=== PATIENT | female | born 1940 | race Caucasian/White ===

== ENCOUNTER 2018-10-14 09:56 | Emergency (ER) | payer MEDICARE, OTHER ==
[~2018-10-14] VITALS: Ht 154.9 cm; Wt 70.0 kg
[~2018-10-14 09:56] MED LIST: AMLO10TA4 PO; ASPI-612 PO; ATOR20TA PO; CALC-1197 PO; CLOP75TA35 PO; HYDR-4353 PO; LORA1TAB PO; LOSA100T57 PO; PANT40TA39 PO; SERT50TA10 PO
[2018-10-14] MEDS ORDERED: ondansetron/PF 4mg/2ml inj IV ONE ×2 (10:05→11:20)
[2018-10-14] MEDS ORDERED: morphine 4 MG/ML inj SYRINge IV PRN (10:05)
[2018-10-14] MEDS ORDERED: normal saline 1000ML IV soln IVB ONE (10:05)
[2018-10-14] MEDS ORDERED: LORazepam 2 mg/ml vial IV ONE (10:05)
[2018-10-14 10:31] LABS: BASOPHILS # (AUTO) 0.1 X10'3 (0-0.2); BASOPHILS % (AUTO) 0.6 % (0-1); EOSINOPHILS % (AUTO) 0.1 % (0-6); HEMATOCRIT 37.7 % (35.0-45.0); HEMOGLOBIN 12.7 g/dl (12.0-16.0); LYMPHOCYTES # (AUTO) 0.7 X10'3 (1.1-4.8); LYMPHOCYTES % (AUTO) 5.1 % (21-51); MEAN CORPUSCULAR HEMOGLOBIN 31.1 PG (27.0-31.0); MEAN CORPUSCULAR HGB CONC 33.8 g/dL (33.0-36.5); MEAN PLATELET VOLUME 8.4 FL (7.4-10.4); MONOCYTES # (AUTO) 0.6 X10'3 (0-0.9); MONOCYTES % (AUTO) 4.2 % (2-12); NEUTROPHILS # (AUTO) 12.3 X10'3 (1.8-7.7); PLATELET COUNT 229 X10'3 (140-440); RED BLOOD COUNT 4.09 X10'6 (4.20-5.60); RED CELL DISTRIBUTION WIDTH 14.3 % (11.5-14.5); WHITE BLOOD COUNT 13.6 X10'3 (4.5-11.0)
[2018-10-14] MEDS ORDERED: calcium citrate PO (10:37)
[2018-10-14] MEDS ORDERED: CHOL10002 PO (10:37)
[2018-10-14] MEDS ORDERED: APIX5TAB3 PO (10:37)
[2018-10-14] MEDS ORDERED: TRAZ-251 PO (10:37)
[2018-10-14] MEDS ORDERED: CLON-529 PO (10:37)
[2018-10-14] MEDS ORDERED: GABA-532 PO (10:37)
[2018-10-14 10:46] LABS: ALANINE AMINOTRANSFERASE 18 U/L (12-78); ALBUMIN 3.8 G/DL (3.4-5.0); ALKALINE PHOSPHATASE 111 IU/L (46-116); ANION GAP 12 (8-16); ASPARTATE AMINO TRANSFERASE 17 U/L (10-37); BILIRUBIN,TOTAL 0.9 MG/DL (0.1-1.0); BLOOD UREA NITROGEN 20 MG/DL (7-18); BUN/CREATININE RATIO 13.4 (6.6-38.0); CALCIUM 9.5 MG/DL (8.5-10.1); CHLORIDE 105 MMOL/L (99-107); CREATININE 1.49 MG/DL (0.40-0.90); GLUCOSE 178 MG/DL (70-104); POTASSIUM 3.7 MMOL/L (3.5-5.1); SODIUM 142 MMOL/L (135-145); TOTAL CARBON DIOXIDE 24.9 MMOL/L (24-32); TOTAL PROTEIN 7.6 G/DL (6.4-8.2); eGFR 34 ML/MIN
[2018-10-14 10:48] LABS: LIPASE 161 U/L (73-393); TROPONIN I < 0.04 NG/ML (0.0-0.05)
--- NOTE | 2018-10-14 11:17 | NUR ---
TO CT SCAN VIA WHEELCHAIR
[2018-10-14] MEDS ORDERED: normal saline 1000ML IV soln IV ONE (11:45)
[2018-10-14 12:05] LABS: HEMATOCRIT 38.3 % (35.0-45.0); HEMOGLOBIN 12.7 g/dl (12.0-16.0); MEAN CORPUSCULAR HEMOGLOBIN 30.8 PG (27.0-31.0); MEAN CORPUSCULAR HGB CONC 33.1 g/dL (33.0-36.5); MEAN CORPUSCULAR VOLUME 93.1 FL (78-98); MEAN PLATELET VOLUME 8.6 FL (7.4-10.4); PLATELET COUNT 221 X10'3 (140-440); RED BLOOD COUNT 4.11 X10'6 (4.20-5.60); RED CELL DISTRIBUTION WIDTH 14.2 % (11.5-14.5); WHITE BLOOD COUNT 13.3 X10'3 (4.5-11.0)
[2018-10-14 12:20] VITALS: BP 138/46
[2018-10-14 12:21] LABS: CLARITY,URINE CLEAR (Clear); COLOR,URINE YELLOW (Yellow); GLUCOSE, URINE NEGATIVE (Neg); KETONES,URINE NEGATIVE (Neg); LEUKOCYTE ESTERASE ,URINE NEGATIVE (Neg); NITRITES, URINE NEGATIVE (Neg); OCCULT BLOOD,URINE TRACE-LYSED (Neg); PH,URINE 7.5 (4.8-8.0); PROTEIN,URINE TRACE mg/dl (Neg); UROBILINOGEN,URINE 0.2 E.U/dL (0.2-1.0)
[2018-10-14 12:22] LABS: UA COLLECTION TYPE FOLEY CATH
[2018-10-14 12:33] LABS: MUCUS STRANDS FEW /LPF (Neg); SQUAMOUS EPITHELIAL CELL,UR FEW /LPF (FEW)
[2018-10-14 12:36] LABS: TRANSITIONAL EPI CELLS,URINE FEW /HPF
[2018-10-14 12:37] LABS: BACTERIA,URINE FEW /HPF (Neg); HYALINE CASTS 0-3 /LPF (NEGATIVE); WBC,URINE 0-4 /HPF (0-4)
== END 2018-10-14 12:24 | disposition short-term general hospital (02) ==
LOC: ER 09:56
DX: I71.3 Abdominal aortic aneurysm, ruptured (principal); R11.2 Nausea with vomiting, unspecified; I10 Essential (primary) hypertension; G89.29 Other chronic pain; Z86.73 Personal history of transient ischemic attack (TIA), and cerebral infarction without residual deficits; Z95.0 Presence of cardiac pacemaker; Z79.899 Other long term (current) drug therapy; Z79.82 Long term (current) use of aspirin
CPT/HCPCS: 36415; 74176; 80053; 81001; 83605; 83690; 84145; 84484; 85025; 85027; 87040; 93005; 96361; 96374; 96375; 99291; J2060; J2270; J2405; J7030

== ENCOUNTER 2018-12-28 08:44 | Emergency (ER) | payer MEDICARE, OTHER ==
[~2018-12-28] VITALS: Ht 154.9 cm; Wt 62.0 kg
[~2018-12-28 08:44] MED LIST changes: +APIX5TAB3 PO; -CALC-1197 PO; +CHOL10002 PO; +CLON-529 PO; -CLOP75TA35 PO; +GABA-532 PO; -LORA1TAB PO; +TRAZ-251 PO; +calcium citrate PO
[2018-12-28 10:11] VITALS: BP 147/70
[2018-12-28] MEDS ORDERED: ONDA4TAB6 PO (15:22)
== END 2018-12-28 10:08 | disposition home or self-care (01) ==
LOC: ER 08:45
DX: T81.89XA Other complications of procedures, not elsewhere classified, initial encounter (principal); K91.841 Postprocedural hemorrhage of a digestive system organ or structure following other procedure; I10 Essential (primary) hypertension; F41.9 Anxiety disorder, unspecified; F32.9 Major depressive disorder, single episode, unspecified; Z95.0 Presence of cardiac pacemaker; Z98.890 Other specified postprocedural states; Z86.73 Personal history of transient ischemic attack (TIA), and cerebral infarction without residual deficits; Z88.1 Allergy status to other antibiotic agents; Z79.82 Long term (current) use of aspirin; Z79.899 Other long term (current) drug therapy; Y83.8 Other surgical procedures as the cause of abnormal reaction of the patient, or of later complication, without mention of misadventure at the time of the procedure; Y92.89 Other specified places as the place of occurrence of the external cause
CPT/HCPCS: 99283

== ENCOUNTER 2019-01-13 12:37 | Inpatient (IN) | payer MEDICARE, OTHER ==
[~2019-01-13] VITALS: Ht 154.9 cm; Wt 65.9 kg
[~2019-01-13 12:37] MED LIST changes: +ONDA4TAB6 PO
[2019-01-13] MEDS ORDERED: furosemide 10 MG/1 ML 10ml inj IV ONE (13:20)
[2019-01-13 13:41] LABS: BASOPHILS % (AUTO) 0.5 % (0-1); EOSINOPHILS # (AUTO) 0.1 X10'3 (0-0.9); EOSINOPHILS % (AUTO) 1.4 % (0-6); HEMATOCRIT 28.9 % (35.0-45.0); HEMOGLOBIN 9.2 g/dl (12.0-16.0); LYMPHOCYTES # (AUTO) 0.9 X10'3 (1.1-4.8); LYMPHOCYTES % (AUTO) 13.3 % (21-51); MEAN CORPUSCULAR HEMOGLOBIN 27.4 PG (27.0-31.0); MEAN CORPUSCULAR HGB CONC 31.9 g/dL (33.0-36.5); MEAN CORPUSCULAR VOLUME 85.9 FL (78-98); MEAN PLATELET VOLUME 7.5 FL (7.4-10.4); MONOCYTES # (AUTO) 0.7 X10'3 (0-0.9); MONOCYTES % (AUTO) 10.2 % (2-12); NEUTROPHILS # (AUTO) 4.8 X10'3 (1.8-7.7); NEUTROPHILS % (AUTO) 74.6 % (42-75); PLATELET COUNT 220 X10'3 (140-440); RED BLOOD COUNT 3.37 X10'6 (4.20-5.60); RED CELL DISTRIBUTION WIDTH 16.1 % (11.5-14.5); WHITE BLOOD COUNT 6.4 X10'3 (4.5-11.0)
[2019-01-13 13:58] LABS: ALANINE AMINOTRANSFERASE 62 U/L (12-78); ALBUMIN/GLOBULIN RATIO 0.7 (1.1-1.5); ALKALINE PHOSPHATASE 166 IU/L (46-116); ANION GAP 9 (8-16); ASPARTATE AMINO TRANSFERASE 62 U/L (10-37); BILIRUBIN,TOTAL 0.7 MG/DL (0.1-1.0); BLOOD UREA NITROGEN 29 MG/DL (7-18); BUN/CREATININE RATIO 13.7 (6.6-38.0); CALCIUM 8.9 MG/DL (8.5-10.1); CHLORIDE 106 MMOL/L (99-107); CREATININE 2.12 MG/DL (0.40-0.90); GLUCOSE 104 MG/DL (70-104); POTASSIUM 5.2 MMOL/L (3.5-5.1); SODIUM 141 MMOL/L (135-145); TOTAL PROTEIN 7.3 G/DL (6.4-8.2); eGFR 23 ML/MIN
[2019-01-13] MEDS ORDERED: mag hydrox/Alum hydrox/simeth 30ml oral suspension PO PRN (15:10)
[2019-01-13] MEDS ORDERED: ondansetron/PF 4mg/2ml inj IV PRN (15:10)
[2019-01-13] MEDS ORDERED: acetaminophen 325mg tablet PO PRN ×2 (15:10)
[2019-01-13] MEDS ORDERED: magnesium hydroxide 30ml (MOM) UD suspension PO PRN (15:10)
[2019-01-13] MEDS ORDERED: morphine 2 MG/ML inj. syringe IV PRN (15:10)
--- NOTE | 2019-01-13 16:44 | NUR ---
LENS FINISHER AT BEDSIDE.
--- NOTE | 2019-01-13 17:06 | NUR ---
PER PHARMACIST SAKINA, DAUGHTER IS TO BRING IN MEDICATION LIST FOR PATIENT.
[2019-01-13] MEDS ORDERED: AMLO10TA PO (17:22)
[2019-01-13] MEDS ORDERED: CALC200T42 PO (17:22)
[2019-01-13] MEDS ORDERED: SERT100T10 PO (17:22)
[2019-01-13] MEDS ORDERED: LORA-269 PO (17:22)
[2019-01-13] MEDS ORDERED: METO25TA6 PO (17:40)
[2019-01-13] MEDS ORDERED: FURO-150 PO (17:40)
--- NOTE | 2019-01-13 17:44 | NUR ---
promotional table spacer PAGER ID: [phone] MESSAGE: Kyle [phone]. I need wound vac orders to keep the wound vac on at the current settings, also Patient would like Ativan. Padmaja [phone]
--- NOTE | 2019-01-13 17:44 | NUR ---
Patient arrived at 1726 from Ed. Khushbu REGALADO called report. Patient oriented to room, will continue to monitor.
[2019-01-13 18:00] VITALS: BP 137/64
[2019-01-13] MEDS: HYDROcodone/acetaminophen 5mg/325mg tablet PO PRN (18:02)
[2019-01-13] MEDS ORDERED: LORazepam 0.5 MG tablet PO PRN (18:05)
--- NOTE | 2019-01-13 18:15 | NUR ---
Patient in room PCU 3028. I have received report from Padmaja REGALADO and had the opportunity to ask questions and assume patient care. Patient is sleeping, will continue to monitor closely.
--- NOTE | 2019-01-13 18:29 | NUR ---
Problems reprioritized. Patient report given, questions answered & plan of care reviewed with Temi REGALADO. Patient stable at transfer of care.
[2019-01-13] MEDS: furosemide 20 MG/2 ML vial IV SCH (21:20)
[2019-01-13] MEDS ORDERED: pneumococcal 23-VAL P-sac vacc 25 mcg/0.5ml vial IMVAC ONE (21:50)
[2019-01-13 22:00] VITALS: BP 131/57
[2019-01-14 01:51] LABS: BASOPHILS % (AUTO) 0.7 % (0-1); EOSINOPHILS # (AUTO) 0.2 X10'3 (0-0.9); EOSINOPHILS % (AUTO) 3.7 % (0-6); HEMOGLOBIN 9.9 g/dl (12.0-16.0); LYMPHOCYTES # (AUTO) 1.1 X10'3 (1.1-4.8); LYMPHOCYTES % (AUTO) 19.4 % (21-51); MEAN CORPUSCULAR HEMOGLOBIN 27.9 PG (27.0-31.0); MEAN CORPUSCULAR HGB CONC 32.9 g/dL (33.0-36.5); MEAN CORPUSCULAR VOLUME 84.9 FL (78-98); MONOCYTES # (AUTO) 0.6 X10'3 (0-0.9); MONOCYTES % (AUTO) 10.1 % (2-12); NEUTROPHILS # (AUTO) 3.8 X10'3 (1.8-7.7); NEUTROPHILS % (AUTO) 66.1 % (42-75); PLATELET COUNT 227 X10'3 (140-440); RED BLOOD COUNT 3.53 X10'6 (4.20-5.60); RED CELL DISTRIBUTION WIDTH 16.5 % (11.5-14.5); WHITE BLOOD COUNT 5.8 X10'3 (4.5-11.0)
[2019-01-14 02:00] VITALS: BP 144/63
[2019-01-14 02:02] LABS: ALBUMIN 3.2 G/DL (3.4-5.0); ANION GAP 8 (8-16); BLOOD UREA NITROGEN 32 MG/DL (7-18); CALCIUM 9.2 MG/DL (8.5-10.1); CHLORIDE 103 MMOL/L (99-107); GLUCOSE 100 MG/DL (70-104); POTASSIUM 4.2 MMOL/L (3.5-5.1); SODIUM 140 MMOL/L (135-145); TOTAL CARBON DIOXIDE 29.2 MMOL/L (24-32); eGFR 16 ML/MIN
[2019-01-14] MEDS: HYDROcodone/acetaminophen 10/325mg tab PO PRN (03:19)
--- NOTE | 2019-01-14 03:30 | NUR ---
Patient's O2 is dropping into the mid 80's and she is SOB. Tried the non-rebreather and it helped, as soon as we placed her back on the NC her O2 would drop again. Lungs sounds are wet. Called Dr. Aragon and relayed information. New orders for 1x dose of IV lasix 40mg.
[2019-01-14] MEDS ORDERED: furosemide 40mg/4ml inj IV ONE (03:40)
--- NOTE | 2019-01-14 06:20 | NUR ---
Problems reprioritized. Patient report given, questions answered & plan of care reviewed with Lorelei REGALADO.
--- NOTE | 2019-01-14 06:38 | NUR ---
Patient in room PCU 3028. I have received report from Augusta and had the opportunity to ask questions and assume patient care.
[2019-01-14 07:00] VITALS: BP 151/58
[2019-01-14] MEDS: furosemide 20 MG/2 ML vial IV SCH ×2 (07:58→20:18)
[2019-01-14] MEDS: morphine 2 MG/ML inj. syringe IV PRN ×2 (08:00→20:23)
--- NOTE | 2019-01-14 08:00 | NUR ---
Patient became dyspneic/anxious, daughter at bedside. RR 22, Sp02 89% on 7/L via NC. IV lasix and IV morphine administered with effective results. Patient is sating between 90-94% on 7/L via NC. MD is aware and was at bedside when this occurred. MD stated to try and keep saturations between 90-92% and order PT for eval and tx. Will continue to monitor closely.
[2019-01-14] MEDS ORDERED: LORazepam 1 MG tablet PO PRN (08:50)
[2019-01-14] MEDS ORDERED: HYDROcodone/acetaminophen 10/325mg tab PO PRN (08:50)
[2019-01-14] MEDS: apixaban 5mg tablet PO SCH ×2 (09:31→20:19)
[2019-01-14] MEDS: sertraline 50mg tablet PO SCH (09:32)
[2019-01-14] MEDS: amLODIPine 5mg tablet PO SCH (09:32)
[2019-01-14] MEDS: metoprolol tartrate 25mg tablet PO SCH ×2 (09:32→20:21)
[2019-01-14 11:00] VITALS: BP 110/63
[2019-01-14] MEDS: HYDROcodone/acetaminophen 5mg/325mg tablet PO PRN (11:34)
[2019-01-14] MEDS: pantoprazole 40mg Tablet.DR PO SCH (11:36)
--- NOTE | 2019-01-14 11:43 | NUR ---
Patient is doing well and in no apparent distress. Interventions this morning effective. Patient remains on 7/L via NC and sating between 93-94%, in no respiratory distress. Call light in reach, will continue to keep monitoring closely.
[2019-01-14 15:00] VITALS: BP 132/58
--- NOTE | 2019-01-14 18:15 | NUR ---
Patient in room PCU 3028. I have received report from Lorelei REGALADO and had the opportunity to ask questions and assume patient care. Patient is resting, she is less anxious when breathing today. Will continue to monitor.
--- NOTE | 2019-01-14 18:22 | NUR ---
Problems reprioritized. Patient report given, questions answered & plan of care reviewed with Augusta.
[2019-01-14 19:00] VITALS: BP 130/58
[2019-01-14] MEDS: aspirin 81mg tablet.DR PO SCH (20:19)
[2019-01-14] MEDS: losartan 50mg tablet PO SCH (20:19)
[2019-01-14] MEDS: atorvastatin 20mg tablet PO SCH (20:22)
[2019-01-14] MEDS: traZODone 50mg tablet PO SCH (20:22)
[2019-01-14] MEDS: gabapentin 300mg capsule PO SCH (20:22)
[2019-01-14 23:00] VITALS: BP 147/61
[2019-01-15 04:58] LABS: BASOPHILS % (AUTO) 0.6 % (0-1); EOSINOPHILS # (AUTO) 0.3 X10'3 (0-0.9); EOSINOPHILS % (AUTO) 5.9 % (0-6); HEMATOCRIT 28.5 % (35.0-45.0); HEMOGLOBIN 9.4 g/dl (12.0-16.0); LYMPHOCYTES % (AUTO) 19.9 % (21-51); MEAN CORPUSCULAR HEMOGLOBIN 27.9 PG (27.0-31.0); MEAN CORPUSCULAR VOLUME 84.5 FL (78-98); MEAN PLATELET VOLUME 7.8 FL (7.4-10.4); MONOCYTES # (AUTO) 0.6 X10'3 (0-0.9); MONOCYTES % (AUTO) 11.3 % (2-12); NEUTROPHILS # (AUTO) 3.2 X10'3 (1.8-7.7); NEUTROPHILS % (AUTO) 62.3 % (42-75); PLATELET COUNT 222 X10'3 (140-440); RED BLOOD COUNT 3.38 X10'6 (4.20-5.60); RED CELL DISTRIBUTION WIDTH 16.2 % (11.5-14.5); WHITE BLOOD COUNT 5.1 X10'3 (4.5-11.0)
[2019-01-15 05:16] LABS: ALBUMIN 2.6 G/DL (3.4-5.0); ANION GAP 6 (8-16); BLOOD UREA NITROGEN 33 MG/DL (7-18); BUN/CREATININE RATIO 14.2 (6.6-38.0); CALCIUM 8.5 MG/DL (8.5-10.1); CHLORIDE 102 MMOL/L (99-107); CREATININE 2.33 MG/DL (0.40-0.90); GLUCOSE 85 MG/DL (70-104); POTASSIUM 3.7 MMOL/L (3.5-5.1); SODIUM 141 MMOL/L (135-145); TOTAL CARBON DIOXIDE 33.2 MMOL/L (24-32); eGFR 20 ML/MIN
--- NOTE | 2019-01-15 06:05 | NUR ---
Problems reprioritized. Patient report given, questions answered & plan of care reviewed with Lorelei REGALADO.
--- NOTE | 2019-01-15 06:28 | NUR ---
Patient in room PCU 3028. I have received report from Augusta and had the opportunity to ask questions and assume patient care.
[2019-01-15 07:00] VITALS: BP 152/65
[2019-01-15] MEDS: sertraline 50mg tablet PO SCH (08:11)
[2019-01-15] MEDS: vitamin D (cholecalciferol) 1,000 unit tablet PO SCH (08:11)
[2019-01-15] MEDS: amLODIPine 5mg tablet PO SCH (08:11)
[2019-01-15] MEDS: furosemide 20 MG/2 ML vial IV SCH ×2 (08:11→19:30)
[2019-01-15] MEDS: metoprolol tartrate 25mg tablet PO SCH ×2 (08:12→19:31)
[2019-01-15] MEDS: apixaban 5mg tablet PO SCH ×2 (08:12→19:31)
[2019-01-15] MEDS: pantoprazole 40mg Tablet.DR PO SCH (08:12)
[2019-01-15] MEDS: morphine 2 MG/ML inj. syringe IV PRN (08:13)
--- NOTE | 2019-01-15 08:19 | NUR ---
patient was offered [place] for her complaints of pain prior to Morphine but she declined stating the morphine has been very helpful for pain and her breathing, discussed marked improvement today with her breathing, decrease oxygen to 4/L via NC, patient is sating at 96-97. Education provided about trying [place] first to prepare for possible discharge. Patient is in agreement.
[2019-01-15 11:00] VITALS: BP 122/67
--- NOTE | 2019-01-15 12:35 | NUR ---
Patient stated she will not be having her daughter bring her calcium from home as she previously stated because she does not feel she needs it. MD is aware of her not taking it X2 days.
[2019-01-15 15:00] VITALS: BP 124/56
[2019-01-15 18:00] VITALS: BP 150/62
--- NOTE | 2019-01-15 18:17 | NUR ---
Problems reprioritized. Patient report given, questions answered & plan of care reviewed with Papo.
--- NOTE | 2019-01-15 18:17 | NUR ---
Patient in room PCU 3028D. I have received report from FABRICIO Moseley and had the opportunity to ask questions and assume patient care.
[2019-01-15] MEDS: gabapentin 300mg capsule PO SCH (21:00)
[2019-01-15] MEDS: traZODone 50mg tablet PO SCH (21:53)
[2019-01-15] MEDS: losartan 50mg tablet PO SCH (21:53)
[2019-01-15] MEDS: aspirin 81mg tablet.DR PO SCH (21:54)
[2019-01-15] MEDS: atorvastatin 20mg tablet PO SCH (21:54)
[2019-01-15 22:00] VITALS: BP 141/60
[2019-01-16] MEDS: HYDROcodone/acetaminophen 10/325mg tab PO PRN ×3 (01:30→13:35)
[2019-01-16 02:00] VITALS: BP 138/54
[2019-01-16 04:58] LABS: BASOPHILS # (AUTO) 0.1 X10'3 (0-0.2); EOSINOPHILS # (AUTO) 0.3 X10'3 (0-0.9); EOSINOPHILS % (AUTO) 5.8 % (0-6); HEMATOCRIT 28.7 % (35.0-45.0); HEMOGLOBIN 9.6 g/dl (12.0-16.0); LYMPHOCYTES # (AUTO) 1.1 X10'3 (1.1-4.8); LYMPHOCYTES % (AUTO) 18.4 % (21-51); MEAN CORPUSCULAR HEMOGLOBIN 28.2 PG (27.0-31.0); MEAN CORPUSCULAR HGB CONC 33.3 g/dL (33.0-36.5); MEAN CORPUSCULAR VOLUME 84.6 FL (78-98); MEAN PLATELET VOLUME 7.8 FL (7.4-10.4); MONOCYTES # (AUTO) 0.7 X10'3 (0-0.9); MONOCYTES % (AUTO) 12.2 % (2-12); NEUTROPHILS # (AUTO) 3.6 X10'3 (1.8-7.7); NEUTROPHILS % (AUTO) 62.6 % (42-75); PLATELET COUNT 230 X10'3 (140-440); RED CELL DISTRIBUTION WIDTH 16.1 % (11.5-14.5); WHITE BLOOD COUNT 5.7 X10'3 (4.5-11.0)
[2019-01-16 05:26] LABS: ALBUMIN 2.5 G/DL (3.4-5.0); ANION GAP 4 (8-16); BLOOD UREA NITROGEN 35 MG/DL (7-18); BUN/CREATININE RATIO 16.5 (6.6-38.0); CALCIUM 8.4 MG/DL (8.5-10.1); CHLORIDE 101 MMOL/L (99-107); CREATININE 2.12 MG/DL (0.40-0.90); GLUCOSE 96 MG/DL (70-104); POTASSIUM 3.6 MMOL/L (3.5-5.1); SODIUM 140 MMOL/L (135-145); TOTAL CARBON DIOXIDE 34.8 MMOL/L (24-32); eGFR 23 ML/MIN
--- NOTE | 2019-01-16 06:35 | NUR ---
Problems reprioritized. Patient report given, questions answered & plan of care reviewed with FABRICIO Beach. Patient stable at shift change.
--- NOTE | 2019-01-16 06:36 | NUR ---
Patient in room PCU 3028. I have received report from FABRICIO Barros and had the opportunity to ask questions and assume patient care.
[2019-01-16 07:00] VITALS: BP 157/63
[2019-01-16 08:15] VITALS: BP 142/65
[2019-01-16] MEDS: apixaban 5mg tablet PO SCH (08:16)
[2019-01-16] MEDS: metoprolol tartrate 25mg tablet PO SCH (08:19)
[2019-01-16] MEDS: amLODIPine 5mg tablet PO SCH (08:20)
[2019-01-16] MEDS: pantoprazole 40mg Tablet.DR PO SCH (08:20)
[2019-01-16] MEDS: vitamin D (cholecalciferol) 1,000 unit tablet PO SCH (08:21)
[2019-01-16] MEDS: sertraline 50mg tablet PO SCH (08:22)
[2019-01-16] MEDS: furosemide 20 MG/2 ML vial IV SCH (08:34)
--- NOTE | 2019-01-16 10:44 | NUR ---
Right arm/hand very weak, kept at pt's side, barely usable per pt due to stroke. Addendum: 01/16/19 at 1107 by Vianney JIMENEZ Amended: Links added.
[2019-01-16 11:00] VITALS: BP 138/59
--- NOTE | 2019-01-16 11:40 | NUR ---
Student documentation: I have reviewed interventions, assessments performed and documented by Sasha WEBBER [facility].
[2019-01-16 15:00] VITALS: BP 156/65
--- NOTE | 2019-01-16 15:40 | NUR ---
Discharge instructions, including medications, follow up appts & S&S worsening condition reviewed with pt and pt's daughter Debbie. Pt and daughter had opportunity to ask questions, no concerns expressed. IV removed, cannula intact. Tele box 33 removed & returned to telesales advisor. All pt belongings gathered up and sent with pt. Pt wheeled down to lobby to meet private vehicle. Pt ambulated independently to vehicle without difficulty. Pt scheduled with Dr. Pineda on 01/28/19 at 0900.
== END 2019-01-16 15:44 | disposition home health service (06) | DRG 291 ==
LOC: ER 12:38 → ED HOLD 15:06 → PCU 3S 17:26
PROVIDERS: ADMIT Internal Medicine; ATTEND Internal Medicine
PROC: 3E0234Z Introduction of Serum, Toxoid and Vaccine into Muscle, Percutaneous Approach (ICD-10-PCS; principal; 2019-01-13)
DX: I13.0 Hypertensive heart and chronic kidney disease with heart failure and stage 1 through stage 4 chronic kidney disease, or unspecified chronic kidney disease (principal); I50.33 Acute on chronic diastolic (congestive) heart failure; J96.01 Acute respiratory failure with hypoxia; I69.351 Hemiplegia and hemiparesis following cerebral infarction affecting right dominant side; N17.9 Acute kidney failure, unspecified; N18.3 Chronic kidney disease, stage 3 (moderate); I27.20 Pulmonary hypertension, unspecified; D64.9 Anemia, unspecified; E78.5 Hyperlipidemia, unspecified; F41.9 Anxiety disorder, unspecified; I49.5 Sick sinus syndrome; F32.9 Major depressive disorder, single episode, unspecified; G47.00 Insomnia, unspecified; G89.29 Other chronic pain; I48.0 Paroxysmal atrial fibrillation; Z79.01 Long term (current) use of anticoagulants; Z95.0 Presence of cardiac pacemaker; Z79.899 Other long term (current) drug therapy; Z23 Encounter for immunization; Z88.1 Allergy status to other antibiotic agents; Z79.82 Long term (current) use of aspirin; Z87.891 Personal history of nicotine dependence
CPT/HCPCS: 36415; 71045; 80048; 80053; 83880; 84484; 85025; 87081; 90732; 93005; 93306; 94760; 96374; 97116; 97161; 97530; 99285; G0378; J1940; J2270

== ENCOUNTER 2019-05-17 01:16 | Inpatient (IN) | payer MEDICARE, OTHER ==
[2019-05-17] VITALS (7 sets, daily range): BP systolic 133–167; BP diastolic 67–87
[~2019-05-17] VITALS: Ht 154.9 cm; Wt 63.6 kg
[~2019-05-17 01:16] MED LIST changes: +AMLO10TA PO; -AMLO10TA4 PO; +CALC200T42 PO; -CLON-529 PO; +FURO-150 PO; +LORA-269 PO; +METO25TA6 PO; -ONDA4TAB6 PO; +SERT100T10 PO; -SERT50TA10 PO; -calcium citrate PO
[2019-05-17] MEDS ORDERED: aspirin 325mg tablet PO ONE (01:40)
[2019-05-17 01:55] LABS: BASOPHILS % (AUTO) 0.7 % (0-1); EOSINOPHILS # (AUTO) 0.3 X10'3 (0-0.9); EOSINOPHILS % (AUTO) 4.9 % (0-6); HEMATOCRIT 29.9 % (35.0-45.0); HEMOGLOBIN 9.9 g/dl (12.0-16.0); LYMPHOCYTES # (AUTO) 1.2 X10'3 (1.1-4.8); LYMPHOCYTES % (AUTO) 19.5 % (21-51); MEAN CORPUSCULAR HEMOGLOBIN 26.1 PG (27.0-31.0); MEAN CORPUSCULAR HGB CONC 33.2 g/dL (33.0-36.5); MEAN CORPUSCULAR VOLUME 78.8 FL (78-98); MONOCYTES # (AUTO) 0.5 X10'3 (0-0.9); MONOCYTES % (AUTO) 7.8 % (2-12); NEUTROPHILS # (AUTO) 4.1 X10'3 (1.8-7.7); NEUTROPHILS % (AUTO) 67.1 % (42-75); PLATELET COUNT 196 X10'3 (140-440); RED BLOOD COUNT 3.79 X10'6 (4.20-5.60); RED CELL DISTRIBUTION WIDTH 18.5 % (11.5-14.5); WHITE BLOOD COUNT 6.1 X10'3 (4.5-11.0)
[2019-05-17 02:18] LABS: ALANINE AMINOTRANSFERASE 12 U/L (12-78); ALBUMIN 3.6 G/DL (3.4-5.0); ALBUMIN/GLOBULIN RATIO 0.9 (1.1-1.5); ALKALINE PHOSPHATASE 120 IU/L (46-116); ANION GAP 10 (8-16); ASPARTATE AMINO TRANSFERASE 21 U/L (10-37); BILIRUBIN,TOTAL 0.7 MG/DL (0.1-1.0); BLOOD UREA NITROGEN 24 MG/DL (7-18); BUN/CREATININE RATIO 11.5 (6.6-38.0); CALCIUM 9.3 MG/DL (8.5-10.1); CHLORIDE 104 MMOL/L (99-107); CREATININE 2.08 MG/DL (0.40-0.90); GLUCOSE 125 MG/DL (70-104); POTASSIUM 3.4 MMOL/L (3.5-5.1); SODIUM 141 MMOL/L (135-145); TOTAL CARBON DIOXIDE 27.2 MMOL/L (24-32); TOTAL PROTEIN 7.6 G/DL (6.4-8.2); eGFR 23 ML/MIN
[2019-05-17 02:26] LABS: MAGNESIUM 1.9 MG/DL (1.5-2.4)
[2019-05-17] MEDS ORDERED: furosemide 10 MG/1 ML 10ml inj IV ONE (02:35)
[2019-05-17] MEDS ORDERED: nitroGLYCERIN 1gm ointment UD TP ONE (02:35)
[2019-05-17] MEDS ORDERED: mag hydrox/Alum hydrox/simeth 30ml oral suspension PO PRN (02:50)
[2019-05-17] MEDS ORDERED: magnesium 4gm in 100ml NS 100 ML IV PRN (02:50)
[2019-05-17] MEDS ORDERED: acetaminophen 325mg tablet PO PRN (02:50)
[2019-05-17] MEDS ORDERED: HYDROcodone/acetaminophen 5mg/325mg tablet PO PRN (02:50)
[2019-05-17] MEDS ORDERED: magnesium hydroxide 30ml (MOM) UD suspension PO PRN (02:50)
[2019-05-17] MEDS ORDERED: potassium CL 10mEq/100ml bag 100 ML IV PRN ×2 (02:50)
[2019-05-17] MEDS ORDERED: potassium Cl 20 mEq SR tablet PO PRN (02:50)
[2019-05-17] MEDS ORDERED: magnesium 2GM in 50ml NS 50 ML IV PRN (02:50)
[2019-05-17] MEDS ORDERED: ondansetron/PF 4mg/2ml inj IV PRN (02:50)
[2019-05-17] MEDS ORDERED: magnesium Cl slow-release 64mg tablet PO PRN (02:50)
--- NOTE | 2019-05-17 06:02 | NUR ---
Problems reprioritized. Patient report given, questions answered & plan of care reviewed with Huy REGALADO.
--- NOTE | 2019-05-17 06:15 | NUR ---
Patient in room PCU 3017. I have received report from Terri REGALADO and had the opportunity to ask questions and assume patient care.
[2019-05-17] MEDS: furosemide 40mg/4ml inj IV SCH ×3 (07:11→21:04)
[2019-05-17] MEDS: docusate sod 100mg capsule PO SCH ×2 (07:12→21:01)
[2019-05-17] MEDS: pantoprazole 40mg Tablet.DR PO SCH (07:13)
[2019-05-17] MEDS: amLODIPine 5mg tablet PO SCH (07:13)
[2019-05-17] MEDS: sertraline 50mg tablet PO SCH (07:13)
[2019-05-17] MEDS: apixaban 5mg tablet PO SCH ×2 (07:14→21:01)
[2019-05-17] MEDS: potassium Cl 20 mEq SR tablet PO PRN ×3 (07:14→15:54)
[2019-05-17] MEDS: K and/or MAG REPLACEMENT MC SCH ×2 (08:31→20:00)
[2019-05-17] MEDS: HYDROcodone/acetaminophen 10/325mg tab PO PRN ×2 (11:06→19:10)
--- NOTE | 2019-05-17 14:23 | NUR ---
PAGER ID: [phone] MESSAGE: Re: Gertrude Montoya, Room: [facility]. FYI: 12 hour trop 0.17. No chest pain, vitals WNL. -[facility] #[id number] Dr. Shankar paged concerning Pt's elevated 12 hour trop of 0.17
--- NOTE | 2019-05-17 16:10 | NUR ---
PAGER ID: [phone] MESSAGE: Re; Gertrude Montoya, Room: [facility]. Pt takes Ativan PO 0.5 mg at night for sleep. Can I put scheduled or one time order in for tonight? -[facility] #[phone] Dr. Shankar paged concerning ativan questions from Pt.
[2019-05-17] MEDS ORDERED: hydrALAZINE 20mg/ml inj. IV PRN (17:30)
--- NOTE | 2019-05-17 18:17 | NUR ---
Problems reprioritized. Patient report given, questions answered & plan of care reviewed with Judith REGALADO.
--- NOTE | 2019-05-17 18:39 | NUR ---
Patient in room PCU 3017. I have received report from Huy REGALADO and had the opportunity to ask questions and assume patient care.
--- NOTE | 2019-05-17 18:56 | NUR ---
Pt. breathing rapidly at 32/minute and labored. O2 sat is 95% on 2L/NC, lungs are clear. She is clearly anxious, asking f/help. paged.
[2019-05-17] MEDS: LORazepam 0.5 MG tablet PO PRN (19:08)
[2019-05-17] MEDS ORDERED: losartan 50mg tablet PO SCH (21:00)
[2019-05-17] MEDS ORDERED: traZODone 50mg tablet PO SCH (21:00)
[2019-05-17] MEDS ORDERED: atorvastatin 20mg tablet PO SCH (21:00)
[2019-05-17] MEDS ORDERED: gabapentin 300mg capsule PO SCH (21:00)
[2019-05-18] MEDS: LORazepam 0.5 MG tablet PO PRN (00:43)
[2019-05-18] MEDS: HYDROcodone/acetaminophen 10/325mg tab PO PRN ×2 (00:44→07:58)
[2019-05-18 02:00] VITALS: BP 160/60
--- NOTE | 2019-05-18 06:21 | NUR ---
Problems reprioritized. Patient report given, questions answered & plan of care reviewed with Janice REGALADO.
--- NOTE | 2019-05-18 06:26 | NUR ---
Patient in room PCU 3017S. I have received report from Judith REGALADO and had the opportunity to ask questions and assume patient care.
[2019-05-18 06:30] VITALS: BP 171/72
[2019-05-18 06:37] LABS: BASOPHILS % (AUTO) 0.5 % (0-1); EOSINOPHILS # (AUTO) 0.1 X10'3 (0-0.9); EOSINOPHILS % (AUTO) 2.8 % (0-6); HEMATOCRIT 32.8 % (35.0-45.0); HEMOGLOBIN 10.9 g/dl (12.0-16.0); LYMPHOCYTES # (AUTO) 1.1 X10'3 (1.1-4.8); LYMPHOCYTES % (AUTO) 22.2 % (21-51); MEAN CORPUSCULAR HGB CONC 33.2 g/dL (33.0-36.5); MEAN CORPUSCULAR VOLUME 78.5 FL (78-98); MEAN PLATELET VOLUME 8.1 FL (7.4-10.4); MONOCYTES # (AUTO) 0.6 X10'3 (0-0.9); MONOCYTES % (AUTO) 11.5 % (2-12); NEUTROPHILS # (AUTO) 3.2 X10'3 (1.8-7.7); PLATELET COUNT 216 X10'3 (140-440); RED BLOOD COUNT 4.18 X10'6 (4.20-5.60); RED CELL DISTRIBUTION WIDTH 18.6 % (11.5-14.5); WHITE BLOOD COUNT 5.1 X10'3 (4.5-11.0)
[2019-05-18 06:38] LABS: ALANINE AMINOTRANSFERASE 14 U/L (12-78); ALBUMIN 3.5 G/DL (3.4-5.0); ALBUMIN/GLOBULIN RATIO 0.8 (1.1-1.5); ALKALINE PHOSPHATASE 116 IU/L (46-116); ANION GAP 7 (8-16); ASPARTATE AMINO TRANSFERASE 21 U/L (10-37); BILIRUBIN,TOTAL 0.8 MG/DL (0.1-1.0); BLOOD UREA NITROGEN 25 MG/DL (7-18); BUN/CREATININE RATIO 11.7 (6.6-38.0); CHLORIDE 102 MMOL/L (99-107); CREATININE 2.13 MG/DL (0.40-0.90); GLUCOSE 88 MG/DL (70-104); MAGNESIUM 1.9 MG/DL (1.5-2.4); PHOSPHORUS 4.1 MG/DL (2.3-4.5); POTASSIUM 3.4 MMOL/L (3.5-5.1); SODIUM 142 MMOL/L (135-145); TOTAL CARBON DIOXIDE 32.7 MMOL/L (24-32); TOTAL PROTEIN 7.7 G/DL (6.4-8.2); eGFR 23 ML/MIN
[2019-05-18] MEDS: pantoprazole 40mg Tablet.DR PO SCH (07:54)
[2019-05-18] MEDS: amLODIPine 5mg tablet PO SCH (07:54)
[2019-05-18] MEDS: docusate sod 100mg capsule PO SCH (07:54)
[2019-05-18] MEDS: sertraline 50mg tablet PO SCH (07:54)
[2019-05-18] MEDS: apixaban 5mg tablet PO SCH (07:54)
[2019-05-18] MEDS: potassium Cl 20 mEq SR tablet PO PRN (07:55)
[2019-05-18] MEDS: furosemide 40mg/4ml inj IV SCH (07:55)
[2019-05-18] MEDS: K and/or MAG REPLACEMENT MC SCH (07:59)
[2019-05-18] MEDS ORDERED: CALCIUM CITRATE 200 MG PO SCH (08:00)
[2019-05-18] MEDS ORDERED: vitamin D (cholecalciferol) 1,000 unit tablet PO SCH (08:00)
[2019-05-18 11:00] VITALS: BP 151/80
[2019-05-18] MEDS ORDERED: POTA20TA19 PO (13:39)
[2019-05-18] MEDS ORDERED: FURO-149 PO (13:39)
--- NOTE | 2019-05-18 13:40 | NUR ---
Paged PAGER ID: [phone] MESSAGE: Janice hernandez [phone]. Jameel Ontiveros [id number]. FYI that latest troponin came back 0.13. Will continue with discharge
--- NOTE | 2019-05-18 14:25 | NUR ---
Per MD, patient stable for discharge home. Discharge packet provided and given to patient, and education provided to patient and daughter Marichuy. New prescriptions were faxed to [facility] on [address]. Tele monitor removed and returned to [email or web address], and IV removed with catheter intact. All belongings sent with patient. Patient escorted from hospital via wheelchair, accompanied by staff and family, and driven home via private vehicle.
--- NOTE | 2019-05-21 11:06 | NUR ---
Case management DC follow up: spoke to pt via telephone: reports, "doing fine", but, "sometimes I get a little dizzy when I stand up, then it goes away". went over orthostatic hypotension protocol, pt verbalizes understanding and agreed to comply. pt uses railing to climb 13 steps to bedroom, no issues noted. Denies cp/tightness, emergent general pain, SOB (at rest), resp distress, NV, abd pain, HOWARD, blurry vision. verbalizes understanding of s/s that would warrant 9-11/ER visit for evaluation. acknowledges need to follow up w/PCP which is next week. Daughter called Dr Pineda office to schedule, & look over pt hospital stay info. Pt continues to use O2 2L /HS. verbalizes understanding of meds & why prescribed, taking as ordered, no ase noted r/t polypharmacy. needs met, questions answered at DC, no further questions at this time.
== END 2019-05-18 14:27 | disposition home or self-care (01) | DRG 293 ==
LOC: ER 01:17 → ED HOLD 02:49 → UNDOADMIN 02:54 → ED HOLD 02:54 → PCU 3S 03:23
PROVIDERS: ADMIT Family Medicine; ATTEND Family Medicine
DX: I13.0 Hypertensive heart and chronic kidney disease with heart failure and stage 1 through stage 4 chronic kidney disease, or unspecified chronic kidney disease (principal); F17.210 Nicotine dependence, cigarettes, uncomplicated; F32.9 Major depressive disorder, single episode, unspecified; F41.9 Anxiety disorder, unspecified; I48.0 Paroxysmal atrial fibrillation; N18.3 Chronic kidney disease, stage 3 (moderate); R00.0 Tachycardia, unspecified; I50.9 Heart failure, unspecified; Z86.73 Personal history of transient ischemic attack (TIA), and cerebral infarction without residual deficits; Z99.81 Dependence on supplemental oxygen; Z88.8 Allergy status to other drugs, medicaments and biological substances; Z79.899 Other long term (current) drug therapy
CPT/HCPCS: 36415; 71045; 80053; 83735; 83880; 84100; 84484; 85025; 93005; 96374; 97116; 97161; 97530; 99285; G0378; J0360; J1940

== ENCOUNTER 2019-09-18 09:54 | Emergency (ER) | payer MEDICARE, OTHER ==
[~2019-09-18] VITALS: Ht 154.9 cm; Wt 77.3 kg
[~2019-09-18 09:54] MED LIST changes: -ASPI-612 PO; +FURO-149 PO; -FURO-150 PO; -LORA-269 PO; -METO25TA6 PO
[2019-09-18 10:58] LABS: BASOPHILS % (AUTO) 0.2 % (0-1); EOSINOPHILS % (AUTO) 0 % (0-6); HEMATOCRIT 30.3 % (35.0-45.0); HEMOGLOBIN 9.9 g/dl (12.0-16.0); LYMPHOCYTES # (AUTO) 0.4 X10'3 (1.1-4.8); LYMPHOCYTES % (AUTO) 2.6 % (21-51); MEAN CORPUSCULAR HEMOGLOBIN 26.8 PG (27.0-31.0); MEAN CORPUSCULAR HGB CONC 32.5 g/dL (33.0-36.5); MEAN CORPUSCULAR VOLUME 82.2 FL (78-98); MEAN PLATELET VOLUME 7.6 FL (7.4-10.4); MONOCYTES # (AUTO) 0.7 X10'3 (0-0.9); MONOCYTES % (AUTO) 4.7 % (2-12); NEUTROPHILS % (AUTO) 92.5 % (42-75); PLATELET COUNT 203 X10'3 (140-440); RED BLOOD COUNT 3.68 X10'6 (4.20-5.60); RED CELL DISTRIBUTION WIDTH 15.9 % (11.5-14.5); WHITE BLOOD COUNT 15.1 X10'3 (4.5-11.0)
[2019-09-18 11:11] LABS: PARTIAL THROMBOPLASTIN TIME 30 SECONDS (22-32)
[2019-09-18 11:15] LABS: ALANINE AMINOTRANSFERASE 16 U/L (12-78); ALBUMIN 3.3 G/DL (3.4-5.0); ALBUMIN/GLOBULIN RATIO 0.8 (1.1-1.5); ALKALINE PHOSPHATASE 114 IU/L (46-116); ANION GAP 7 (8-16); ASPARTATE AMINO TRANSFERASE 19 U/L (10-37); BILIRUBIN,TOTAL 0.6 MG/DL (0.1-1.0); BLOOD UREA NITROGEN 22 MG/DL (7-18); BUN/CREATININE RATIO 8.7 (6.6-38.0); CALCIUM 8.5 MG/DL (8.5-10.1); CHLORIDE 104 MMOL/L (99-107); CREATININE 2.52 MG/DL (0.40-0.90); GLUCOSE 140 MG/DL (70-104); POTASSIUM 4.5 MMOL/L (3.5-5.1); SODIUM 141 MMOL/L (135-145); TOTAL CARBON DIOXIDE 30.5 MMOL/L (24-32); TOTAL PROTEIN 7.5 G/DL (6.4-8.2); eGFR 19 ML/MIN
[2019-09-18 11:22] LABS: TROPONIN I < 0.04 NG/ML (0.0-0.05)
--- NOTE | 2019-09-18 11:29 | NUR ---
Pt transported to CT scan via gurney with the side rails raised.
[2019-09-18 12:02] LABS: CLARITY,URINE SLIGHTLY CLOUDY (Clear); COLOR,URINE YELLOW (Yellow); GLUCOSE, URINE NEGATIVE (Neg); KETONES,URINE NEGATIVE (Neg); LEUKOCYTE ESTERASE ,URINE NEGATIVE (Neg); NITRITES, URINE NEGATIVE (Neg); OCCULT BLOOD,URINE SMALL (Neg); PROTEIN,URINE >=300 mg/dl (Neg); UA COLLECTION TYPE CLN CATCH MIDSTREAM; UROBILINOGEN,URINE 0.2 E.U/dL (0.2-1.0)
[2019-09-18 12:09] LABS: SQUAMOUS EPITHELIAL CELL,UR MANY /LPF (FEW)
[2019-09-18 12:10] LABS: BACTERIA,URINE 1+ /HPF (Neg); WBC,URINE 0-4 /HPF (0-4)
[2019-09-18 12:11] LABS: MUCUS STRANDS FEW /LPF (Neg)
[2019-09-18 13:18] VITALS: BP 167/82
== END 2019-09-18 13:25 | disposition home or self-care (01) ==
LOC: ER 09:54
DX: R53.1 Weakness (principal); R53.81 Other malaise; R26.81 Unsteadiness on feet; R53.83 Other fatigue; R06.02 Shortness of breath; R11.10 Vomiting, unspecified; I10 Essential (primary) hypertension; F41.9 Anxiety disorder, unspecified; F32.9 Major depressive disorder, single episode, unspecified; Z86.73 Personal history of transient ischemic attack (TIA), and cerebral infarction without residual deficits; Z95.0 Presence of cardiac pacemaker; Z98.890 Other specified postprocedural states; Z88.8 Allergy status to other drugs, medicaments and biological substances; Z79.01 Long term (current) use of anticoagulants; Z79.899 Other long term (current) drug therapy; I48.91 Unspecified atrial fibrillation; I50.9 Heart failure, unspecified; Z99.81 Dependence on supplemental oxygen
CPT/HCPCS: 36415; 70450; 71045; 80053; 81001; 83880; 84484; 85025; 85610; 85730; 93005; 99285

== ENCOUNTER 2020-04-03 09:03 | Emergency (ER) | payer MEDICARE, OTHER ==
[~2020-04-03] VITALS: Ht 154.9 cm; Wt 77.3 kg
[2020-04-03 10:15] LABS: BASOPHILS % (AUTO) 0.3 % (0-1); EOSINOPHILS % (AUTO) 0.2 % (0-6); HEMATOCRIT 26.7 % (35.0-45.0); HEMOGLOBIN 8.4 g/dl (12.0-16.0); LYMPHOCYTES # (AUTO) 0.3 X10'3 (1.1-4.8); LYMPHOCYTES % (AUTO) 3.3 % (21-51); MEAN CORPUSCULAR HEMOGLOBIN 25.1 PG (27.0-31.0); MEAN CORPUSCULAR HGB CONC 31.3 g/dL (33.0-36.5); MEAN CORPUSCULAR VOLUME 80.3 FL (78-98); MEAN PLATELET VOLUME 8.1 FL (7.4-10.4); MONOCYTES # (AUTO) 0.5 X10'3 (0-0.9); MONOCYTES % (AUTO) 6.4 % (2-12); NEUTROPHILS # (AUTO) 6.9 X10'3 (1.8-7.7); NEUTROPHILS % (AUTO) 89.8 % (42-75); PLATELET COUNT 163 X10'3 (140-440); RED BLOOD COUNT 3.32 X10'6 (4.20-5.60); RED CELL DISTRIBUTION WIDTH 16.9 % (11.5-14.5); WHITE BLOOD COUNT 7.7 X10'3 (4.5-11.0)
[2020-04-03 10:31] LABS: ALANINE AMINOTRANSFERASE 16 U/L (12-78); ALBUMIN 3.5 G/DL (3.4-5.0); ALBUMIN/GLOBULIN RATIO 0.9 (1.1-1.5); ALKALINE PHOSPHATASE 108 IU/L (46-116); ANION GAP 7 (8-16); ASPARTATE AMINO TRANSFERASE 23 U/L (10-37); BILIRUBIN,TOTAL 0.7 MG/DL (0.1-1.0); BLOOD UREA NITROGEN 23 MG/DL (7-18); BUN/CREATININE RATIO 9.9 (6.6-38.0); CALCIUM 8.8 MG/DL (8.5-10.1); CHLORIDE 105 MMOL/L (99-107); CREATININE 2.32 MG/DL (0.40-0.90); GLUCOSE 134 MG/DL (70-104); POTASSIUM 4.6 MMOL/L (3.5-5.1); SODIUM 142 MMOL/L (135-145); TOTAL CARBON DIOXIDE 30.5 MMOL/L (24-32); TOTAL PROTEIN 7.3 G/DL (6.4-8.2); eGFR 20 ML/MIN
[2020-04-03] MEDS ORDERED: furosemide 10 MG/1 ML 10ml inj IV ONE (10:50)
[2020-04-03] MEDS ORDERED: potassium Cl 20 mEq SR tablet PO STA (10:51)
[2020-04-03 11:19] VITALS: BP 175/70
--- NOTE | 2020-04-03 11:20 | NUR ---
Debbie [phone]
== END 2020-04-03 11:42 | disposition home or self-care (01) ==
LOC: ER 09:04
DX: I50.9 Heart failure, unspecified (principal); Z20.828 Contact with and (suspected) exposure to other viral communicable diseases; R06.02 Shortness of breath; R05 Cough; R06.2 Wheezing; I11.0 Hypertensive heart disease with heart failure; N28.9 Disorder of kidney and ureter, unspecified; Z86.73 Personal history of transient ischemic attack (TIA), and cerebral infarction without residual deficits; Z98.890 Other specified postprocedural states; Z95.0 Presence of cardiac pacemaker; Z88.1 Allergy status to other antibiotic agents; Z79.899 Other long term (current) drug therapy
CPT/HCPCS: 36415; 71045; 80053; 83880; 84484; 85025; 87040; 87635; 93005; 96374; 99285; C9803; J1940

== ENCOUNTER 2020-10-14 05:51 | Emergency (ER) | payer MEDICARE, OTHER ==
[~2020-10-14] VITALS: Ht 154.9 cm; Wt 77.3 kg
[~2020-10-14 05:51] MED LIST changes: +AMOX-422 PO; +EPOE200015 SQ; +FERR325T28 PO; -FURO-149 PO; +FURO40TA4 PO; +IPRA3AMP9 IH; +POTA-82 PO; +PRED20TA PO; +PROP225C9 PO; +SERT-434 PO; -SERT100T10 PO
[2020-10-14] MEDS ORDERED: ondansetron/PF 4mg/2ml inj IM ONE (06:45)
[2020-10-14] MEDS ORDERED: morphine 4 MG/ML inj SYRINge IV ONE (06:45)
--- NOTE | 2020-10-14 06:47 | NUR ---
Spoke to EDMD regarding IM Zofran order. Per MD, ordered incorrectly and okayed to give medication IV.
[2020-10-14 07:27] LABS: BASOPHILS % (AUTO) 0.2 % (0-1); EOSINOPHILS % (AUTO) 0.1 % (0-6); HEMOGLOBIN 10.7 g/dl (12.0-16.0); LYMPHOCYTES # (AUTO) 0.3 X10'3 (1.1-4.8); LYMPHOCYTES % (AUTO) 1.9 % (21-51); MEAN CORPUSCULAR HEMOGLOBIN 26.3 PG (27.0-31.0); MEAN CORPUSCULAR HGB CONC 32.3 g/dL (33.0-36.5); MEAN CORPUSCULAR VOLUME 81.4 FL (78-98); MEAN PLATELET VOLUME 8.4 FL (7.4-10.4); MONOCYTES # (AUTO) 1.1 X10'3 (0-0.9); NEUTROPHILS # (AUTO) 11.9 X10'3 (1.8-7.7); NEUTROPHILS % (AUTO) 89.8 % (42-75); PLATELET COUNT 166 X10'3 (140-440); RED BLOOD COUNT 4.06 X10'6 (4.20-5.60); RED CELL DISTRIBUTION WIDTH 23.8 % (11.5-14.5); WHITE BLOOD COUNT 13.3 X10'3 (4.5-11.0)
[2020-10-14 07:49] LABS: ALANINE AMINOTRANSFERASE 36 U/L (12-78); ALBUMIN 3.7 G/DL (3.4-5.0); ALBUMIN/GLOBULIN RATIO 1.2 (1.1-1.5); ALKALINE PHOSPHATASE 96 IU/L (46-116); ANION GAP 7 (8-16); ASPARTATE AMINO TRANSFERASE 30 U/L (10-37); BILIRUBIN,TOTAL 1.2 MG/DL (0.1-1.0); BLOOD UREA NITROGEN 36 MG/DL (7-18); BUN/CREATININE RATIO 17.7 (6.6-38.0); CALCIUM 8.9 MG/DL (8.5-10.1); CHLORIDE 103 MMOL/L (99-107); CREATININE 2.03 MG/DL (0.40-0.90); GLUCOSE 157 MG/DL (70-104); LIPASE 350 U/L (73-393); POTASSIUM 3.9 MMOL/L (3.5-5.1); SODIUM 142 MMOL/L (135-145); TOTAL CARBON DIOXIDE 32.5 MMOL/L (24-32); TOTAL PROTEIN 6.9 G/DL (6.4-8.2); eGFR 24 ML/MIN
--- NOTE | 2020-10-14 08:10 | NUR ---
Pt in CT
[2020-10-14] MEDS ORDERED: iohexol 350MG/ML 100ml bottle IV ONE (09:00)
[2020-10-14] MEDS ORDERED: HYDROmorphone 1 mg/ml syringe IM ONE (09:40)
--- NOTE | 2020-10-14 09:52 | NUR ---
Medication ordered IM, ok to give IV per MD.
[2020-10-14] MEDS ORDERED: HYDROmorphone 1 mg/ml syringe IV ONE (12:35)
[2020-10-14] MEDS ORDERED: AMOX-580 PO (12:47)
[2020-10-14] MEDS ORDERED: PRED20TA PO (12:47)
[2020-10-14] MEDS ORDERED: FERR325T29 PO (12:47)
[2020-10-14] MEDS ORDERED: normal saline 1000ml 1,000 ML IV ONE (13:45)
--- NOTE | 2020-10-14 14:02 | NUR ---
Gave report to FABRICIO Velasquez from [facility].
[2020-10-14 16:23] LABS: PLATELET ESTIMATE NORMAL
[2020-10-14 16:24] LABS: ANISOCYTOSIS 3+; ELLIPTOCYTES 2+; HYPOCHROMASIA 1+; POLYCHROMASIA 1+; TEAR DROP CELLS FEW
[2020-10-14 17:09] VITALS: BP 180/89
[2020-10-14] MEDS: LORazepam 2 mg/ml vial IV PRN ×2 (17:18→17:19)
--- NOTE | 2020-10-14 17:21 | NUR ---
[place] flight crew is on site.
== END 2020-10-14 17:35 ==
LOC: ER 05:52
DX: T82.538A Leakage of other cardiac and vascular devices and implants, initial encounter (principal); N94.89 Other specified conditions associated with female genital organs and menstrual cycle; R10.84 Generalized abdominal pain; R11.2 Nausea with vomiting, unspecified; I10 Essential (primary) hypertension; F41.9 Anxiety disorder, unspecified; F32.9 Major depressive disorder, single episode, unspecified; Z86.73 Personal history of transient ischemic attack (TIA), and cerebral infarction without residual deficits; Z95.0 Presence of cardiac pacemaker; Z98.890 Other specified postprocedural states; Z88.1 Allergy status to other antibiotic agents; Z79.2 Long term (current) use of antibiotics; Z79.899 Other long term (current) drug therapy; Y83.2 Surgical operation with anastomosis, bypass or graft as the cause of abnormal reaction of the patient, or of later complication, without mention of misadventure at the time of the procedure; Y71.8 Miscellaneous cardiovascular devices associated with adverse incidents, not elsewhere classified
CPT/HCPCS: 36415; 71275; 74174; 74176; 80053; 83690; 85008; 85025; 96372; 96374; 96375; 99285; J1170; J2060; J2270; J2405; J7030; Q9967

== ENCOUNTER 2021-01-08 03:47 | Inpatient (IN) | payer MEDICARE, OTHER ==
[~2021-01-08] VITALS: Ht 152.4 cm; Wt 74.1 kg
[~2021-01-08 03:47] MED LIST changes: -AMOX-422 PO; +BUDE0.5A3 NEB; -EPOE200015 SQ; -FERR325T28 PO; +IPRA3AMP31 INH; -IPRA3AMP9 IH; +ISOS30TA84 PO; +NITR0.4T48 SL; -PRED20TA PO
[2021-01-08] MEDS ORDERED: ipratropium/albuterol 3ml nebule NEB ONE (03:55)
--- NOTE | 2021-01-08 04:20 | NUR ---
PAGED RT. RT WILL BE IN WHEN PT'S COVID SWAB IS DONE
[2021-01-08 04:28] LABS: BASOPHILS % (AUTO) 0.1 % (0-1); EOSINOPHILS % (AUTO) 0.5 % (0-6); HEMATOCRIT 35.9 % (35.0-45.0); HEMOGLOBIN 11.9 g/dl (12.0-16.0); LYMPHOCYTES # (AUTO) 0.3 X10'3 (1.1-4.8); LYMPHOCYTES % (AUTO) 2.9 % (21-51); MEAN CORPUSCULAR HEMOGLOBIN 30.4 PG (27.0-31.0); MEAN CORPUSCULAR HGB CONC 33.2 g/dL (33.0-36.5); MEAN CORPUSCULAR VOLUME 91.7 FL (78-98); MEAN PLATELET VOLUME 7.7 FL (7.4-10.4); MONOCYTES # (AUTO) 0.1 X10'3 (0-0.9); MONOCYTES % (AUTO) 1.2 % (2-12); NEUTROPHILS # (AUTO) 9.7 X10'3 (1.8-7.7); NEUTROPHILS % (AUTO) 95.3 % (42-75); PLATELET COUNT 178 X10'3 (140-440); RED BLOOD COUNT 3.91 X10'6 (4.20-5.60); RED CELL DISTRIBUTION WIDTH 14.7 % (11.5-14.5); WHITE BLOOD COUNT 10.2 X10'3 (4.5-11.0)
--- NOTE | 2021-01-08 04:32 | NUR ---
PT ARRIVED ON NONREBREATHER RUNNING AT 10 LPM. PT SATTING TO AT 100%. D/T HX OF COPD, PLACED PT ON NC RUNNING AT 5 LPM. WILL CONTINUE TO MONITOR
[2021-01-08 05:03] LABS: ALANINE AMINOTRANSFERASE 15 U/L (12-78); ALBUMIN 3.6 G/DL (3.4-5.0); ALBUMIN/GLOBULIN RATIO 0.9 (1.1-1.5); ALKALINE PHOSPHATASE 111 IU/L (46-116); ANION GAP 8 (8-16); ASPARTATE AMINO TRANSFERASE 19 U/L (10-37); BILIRUBIN,TOTAL 0.5 MG/DL (0.1-1.0); BLOOD UREA NITROGEN 28 MG/DL (7-18); BUN/CREATININE RATIO 10.9 (6.6-38.0); CHLORIDE 108 MMOL/L (99-107); CREATININE 2.57 MG/DL (0.40-0.90); GLUCOSE 151 MG/DL (70-104); POTASSIUM 3.9 MMOL/L (3.5-5.1); SODIUM 145 MMOL/L (135-145); TOTAL CARBON DIOXIDE 28.7 MMOL/L (24-32); TOTAL PROTEIN 7.5 G/DL (6.4-8.2); eGFR 18 ML/MIN
[2021-01-08 05:04] LABS: PARTIAL THROMBOPLASTIN TIME 26 SECONDS (22-32)
[2021-01-08 05:07] LABS: ABG BASE EXCESS 4.2 mmol/L (-2.0-2.0); ABG OXYGEN SATURATION 88.6 % (94-97); ABG PCO2 (T) 44.8 mmHg (32.0-45.0); ABG PO2 (T) 52.7 mmHg (75.0-100.0); FCOHb 0.2 % (0.0-3.9); FLOW 3 L/min; FMetHb 0.1 % (0.0-1.5); FO2Hb 88.3 % (94-97); PATIENT TEMPERATURE 37.3; TOTAL HEMOGLOBIN 11.5 G/dl (12.0-16.0)
[2021-01-08] MEDS ORDERED: azithromycin/NS 500mg/250ml 250 ML IV ONE (05:55)
[2021-01-08] MEDS ORDERED: CefTRIAXone 2gm/D5W 50ml BAG 50 ML IV ONE (05:55)
[2021-01-08 05:59] LABS: TOTAL CELLS COUNTED 100
[2021-01-08 06:01] LABS: ANISOCYTOSIS FEW; ELLIPTOCYTES FEW; PLATELET ESTIMATE NORMAL
[2021-01-08] MEDS ORDERED: dexamethasone sod phosphate 10mg/ml inj IV STA (06:04)
[2021-01-08] MEDS ORDERED: heparin 10,000 units/1 ML INJ IV ONE (06:05)
[2021-01-08] MEDS: heparin 25,000 UNIT/250ml bag 250 ML IV SCH (07:54)
[2021-01-08] MEDS ORDERED: normal saline 1000ml 1,000 ML IV SCH (08:50)
[2021-01-08] MEDS ORDERED: potassium Cl 40MEQ/1/2NS 520ml 520 ML IV PRN ×2 (08:50)
[2021-01-08] MEDS ORDERED: ondansetron/PF 4mg/2ml inj IV PRN (08:50)
[2021-01-08] MEDS ORDERED: potassium Cl 20 mEq SR tablet PO PRN ×2 (08:50)
[2021-01-08] MEDS ORDERED: acetaminophen 325mg tablet PO PRN (08:50)
[2021-01-08] MEDS ORDERED: CefTRIAXone/D5W-Rocephin 1gm 50 ML IV SCH (09:15)
[2021-01-08] MEDS ORDERED: azithromycin/NS 500mg/250ml 250 ML IV SCH (09:15)
[2021-01-08] MEDS ORDERED: HYDROcodone/acetaminophen 5mg/325mg tablet PO ONE (10:35)
--- NOTE | 2021-01-08 13:23 | NUR ---
Dr. Benoit ernandez re; BP
[2021-01-08] MEDS ORDERED: AMLO5TAB PO (15:03)
[2021-01-08] MEDS ORDERED: nitroGLYCERIN 0.4mg SUBLingual tab SL PRN (15:20)
[2021-01-08] MEDS ORDERED: ipratropium/albuterol 3ml nebule IH PRN (15:20)
[2021-01-08] MEDS: pantoprazole 40mg Tablet.DR PO SCH (16:55)
[2021-01-08] MEDS: isosorbide mononitrate 30mg tab.SR.24H PO SCH (16:55)
--- NOTE | 2021-01-08 18:30 | NUR ---
ASSUMED CARE OF PT. PT SLEEPING COMFORTABLY. EQUAL RISE AND FALL OF CHEST
[2021-01-08] MEDS: RYTHMOL PO SCH (20:00)
[2021-01-08] MEDS: docusate sod 100mg capsule PO SCH (20:00)
[2021-01-08] MEDS: K and/or MAG REPLACEMENT MC SCH (20:00)
[2021-01-08] MEDS ORDERED: apixaban 5mg tablet PO SCH (20:00)
[2021-01-08] MEDS: gabapentin 300mg capsule PO SCH (21:50)
[2021-01-08] MEDS: atorvastatin 20mg tablet PO SCH (21:51)
[2021-01-08] MEDS: traZODone 50mg tablet PO SCH (21:51)
--- NOTE | 2021-01-09 01:15 | NUR ---
HAD A FULL CONVERSATION WITH DR RODRIGUEZ OVER PT'S HEPARIN PROTOCOL. SHE WANTS ME TO START IT NOW ORIGINALLY ORDERED BY PREVIOUS DRFloyd CALLED PHARMACY, THEY ARE STARTING THE PROTOCOL FROM [facility].
[2021-01-09] MEDS ORDERED: heparin 10,000 units/1 ML INJ IV ONE (01:35)
[2021-01-09] MEDS: heparin 10,000 units/1 ML INJ IV PRN ×2 (01:44→12:13)
[2021-01-09] MEDS: heparin 25,000 UNIT/250ml bag 250 ML IV SCH (01:45)
--- NOTE | 2021-01-09 02:06 | NUR ---
PT GIVEN INITIAL HEPARIN BOLUS OF 6,000 UNITS, AND DRIP RUNNING AT 1386 UNITS ORIGINALLY ORDERED, PER DR RODRIGUEZ. WILL CONTINUE TO FOLLOW HEPARIN PROTOCOL.
[2021-01-09 07:35] LABS: BASOPHILS % (AUTO) 0.1 % (0-1); EOSINOPHILS % (AUTO) 0 % (0-6); HEMATOCRIT 30.3 % (35.0-45.0); LYMPHOCYTES # (AUTO) 0.5 X10'3 (1.1-4.8); LYMPHOCYTES % (AUTO) 3.1 % (21-51); MEAN CORPUSCULAR HEMOGLOBIN 30.5 PG (27.0-31.0); MEAN CORPUSCULAR HGB CONC 33.1 g/dL (33.0-36.5); MEAN CORPUSCULAR VOLUME 92.2 FL (78-98); MEAN PLATELET VOLUME 7.8 FL (7.4-10.4); MONOCYTES # (AUTO) 0.6 X10'3 (0-0.9); MONOCYTES % (AUTO) 3.7 % (2-12); NEUTROPHILS # (AUTO) 14.7 X10'3 (1.8-7.7); NEUTROPHILS % (AUTO) 93.1 % (42-75); PLATELET COUNT 153 X10'3 (140-440); RED BLOOD COUNT 3.29 X10'6 (4.20-5.60); RED CELL DISTRIBUTION WIDTH 14.9 % (11.5-14.5); WHITE BLOOD COUNT 15.7 X10'3 (4.5-11.0)
[2021-01-09 07:47] LABS: ALBUMIN 2.9 G/DL (3.4-5.0); ANION GAP 8 (8-16); BLOOD UREA NITROGEN 31 MG/DL (7-18); BUN/CREATININE RATIO 15.7 (6.6-38.0); CALCIUM 8.7 MG/DL (8.5-10.1); CHLORIDE 109 MMOL/L (99-107); CREATININE 1.97 MG/DL (0.40-0.90); GLUCOSE 145 MG/DL (70-104); SODIUM 144 MMOL/L (135-145); TOTAL CARBON DIOXIDE 27.4 MMOL/L (24-32); eGFR 25 ML/MIN
[2021-01-09 08:04] LABS: PARTIAL THROMBOPLASTIN TIME > 139 SECONDS (22-32)
[2021-01-09] MEDS: pantoprazole 40mg Tablet.DR PO SCH (08:38)
[2021-01-09] MEDS: sertraline 50mg tablet PO SCH (08:39)
[2021-01-09] MEDS: docusate sod 100mg capsule PO SCH ×2 (08:39→19:19)
[2021-01-09] MEDS: isosorbide mononitrate 30mg tab.SR.24H PO SCH (08:39)
[2021-01-09] MEDS: losartan 50mg tablet PO SCH (08:40)
[2021-01-09] MEDS: amLODIPine 5mg tablet PO SCH (08:41)
[2021-01-09] MEDS: K and/or MAG REPLACEMENT MC SCH ×2 (10:28→19:25)
--- NOTE | 2021-01-09 10:38 | NUR ---
FIRST CONTACT WITH PT, PT IS RESTING QUIETLY ON BED, NO BEDS AVAILABLE UPSTAIRS, LEASING MACHINE TENDER AT BEDSIDE TO DRAW REPEAT PTT, HEPARIN GTT WAS STOPPED PRIOR TO MY TAKING CARE OF PT,
[2021-01-09] MEDS: CefTRIAXone/D5W-Rocephin 1gm 50 ML IV SCH (10:45)
[2021-01-09] MEDS: RYTHMOL PO SCH ×2 (10:46→20:59)
--- NOTE | 2021-01-09 10:55 | NUR ---
PT IS ANXIOUS, TALKED WITH PT TO STAY CALM, WAITING FOR DAUGHTER TO RETURN WITH WOUND VAC EQUIPMENT, LUNGS COARSE BILATERALLY, PT IS ON 4LITER NASAL CANNULA, TALKING FULL SENTENCES, SKIN P/W/D, NO SKIN BREAKDOWN TO BACK/COCCYX, WICK IN PLACE, DEPENDS IS DRY AT THIS TIME, GCS 15 ALERT AND ORIENTED X3
[2021-01-09] MEDS: azithromycin/NS 500mg/250ml 250 ML IV SCH (12:38)
--- NOTE | 2021-01-09 13:30 | NUR ---
ER techs changed pt depends which was wet, readjusted tanmay leach well, has lunch at bedside
--- NOTE | 2021-01-09 14:18 | NUR ---
Dr Laboy gave verbal to restart home dose of eliquis 5mg BID, wound care consult, norco 5/325mg 1 tab BID prn pain, heparin gtt dc/d
--- NOTE | 2021-01-09 14:30 | NUR ---
PT MOVED TO A HOSPITAL BED, PT ATE LUNCH EXCEPT FOR PEAS, SAMEER WELL, NO N/V, WOUND VAC TO LEFT GROIN IS DRY AND INTACT, VAC IS FULLY CHARGED AND DRAINING SMALL AMOUNT OF YELLOW FLUID, PER FAMILY PT HAS BEEN GOING TO WOUND CLINIC, WOUND CLINIC WAS GOING TO EVALUATE ON SUNDAY AND POSSIBLY DC WOUND VAC
[2021-01-09] MEDS: ipratropium/albuterol 3ml nebule NEB SCH ×2 (15:32→21:12)
[2021-01-09] MEDS: HYDROcodone/acetaminophen 5mg/325mg tablet PO PRN (19:18)
[2021-01-09] MEDS: methylPREDNISolone sod succ/PF 40mg inj. IV SCH (19:19)
[2021-01-09] MEDS: apixaban 5mg tablet PO SCH (20:58)
[2021-01-09] MEDS: traZODone 50mg tablet PO SCH (20:58)
[2021-01-09] MEDS: atorvastatin 20mg tablet PO SCH (20:59)
[2021-01-09] MEDS: gabapentin 300mg capsule PO SCH (20:59)
[2021-01-09] MEDS: budesonide 0.5mg/2ml UD nebule IH SCH (21:12)
--- NOTE | 2021-01-09 21:46 | NUR ---
attempted to call report to floor. was told that rn will call back.
[2021-01-09 23:00] VITALS: BP 183/77
[2021-01-10 02:00] VITALS: BP 177/72
[2021-01-10] MEDS: ipratropium/albuterol 3ml nebule NEB SCH ×4 (03:09→20:38)
[2021-01-10 06:31] LABS: BASOPHILS % (AUTO) 0.4 % (0-1); EOSINOPHILS % (AUTO) 0 % (0-6); HEMATOCRIT 29.4 % (35.0-45.0); HEMOGLOBIN 10.1 g/dl (12.0-16.0); LYMPHOCYTES # (AUTO) 0.4 X10'3 (1.1-4.8); LYMPHOCYTES % (AUTO) 3.7 % (21-51); MEAN CORPUSCULAR HGB CONC 34.2 g/dL (33.0-36.5); MEAN CORPUSCULAR VOLUME 90.5 FL (78-98); MEAN PLATELET VOLUME 8.1 FL (7.4-10.4); MONOCYTES # (AUTO) 0.2 X10'3 (0-0.9); MONOCYTES % (AUTO) 2.6 % (2-12); NEUTROPHILS # (AUTO) 9.1 X10'3 (1.8-7.7); NEUTROPHILS % (AUTO) 93.3 % (42-75); PLATELET COUNT 174 X10'3 (140-440); RED BLOOD COUNT 3.25 X10'6 (4.20-5.60); RED CELL DISTRIBUTION WIDTH 14.7 % (11.5-14.5); WHITE BLOOD COUNT 9.7 X10'3 (4.5-11.0)
[2021-01-10 06:33] LABS: ALBUMIN 3.1 G/DL (3.4-5.0); ANION GAP 13 (8-16); BLOOD UREA NITROGEN 30 MG/DL (7-18); BUN/CREATININE RATIO 16.3 (6.6-38.0); CALCIUM 8.7 MG/DL (8.5-10.1); CHLORIDE 105 MMOL/L (99-107); CREATININE 1.84 MG/DL (0.40-0.90); GLUCOSE 140 MG/DL (70-104); POTASSIUM 4.2 MMOL/L (3.5-5.1); SODIUM 141 MMOL/L (135-145); TOTAL CARBON DIOXIDE 22.9 MMOL/L (24-32); eGFR 27 ML/MIN
--- NOTE | 2021-01-10 07:03 | NUR ---
Patient in room PCU 3022. I have received report from Radha REGALADO and had the opportunity to ask questions and assume patient care.
--- NOTE | 2021-01-10 07:11 | NUR ---
Problems reprioritized. Patient report given, questions answered & plan of care reviewed with MARCELLA REGALADO.
[2021-01-10] MEDS: azithromycin/NS 500mg/250ml 250 ML IV SCH (07:36)
[2021-01-10] MEDS: CefTRIAXone/D5W-Rocephin 1gm 50 ML IV SCH (07:37)
[2021-01-10] MEDS: pantoprazole 40mg Tablet.DR PO SCH (07:38)
[2021-01-10] MEDS: methylPREDNISolone sod succ/PF 40mg inj. IV SCH ×2 (07:46→19:11)
[2021-01-10] MEDS: amLODIPine 5mg tablet PO SCH (07:48)
[2021-01-10] MEDS: isosorbide mononitrate 30mg tab.SR.24H PO SCH (07:48)
[2021-01-10] MEDS: apixaban 5mg tablet PO SCH ×2 (07:50→19:11)
[2021-01-10] MEDS: RYTHMOL PO SCH ×2 (07:51→19:11)
[2021-01-10] MEDS: docusate sod 100mg capsule PO SCH ×2 (07:51→19:11)
[2021-01-10] MEDS: losartan 50mg tablet PO SCH (07:52)
[2021-01-10] MEDS: sertraline 50mg tablet PO SCH (07:52)
[2021-01-10] MEDS: K and/or MAG REPLACEMENT MC SCH ×2 (07:55→19:12)
[2021-01-10] MEDS: budesonide 0.5mg/2ml UD nebule IH SCH ×2 (08:49→20:37)
[2021-01-10] MEDS: HYDROcodone/acetaminophen 5mg/325mg tablet PO PRN (09:13)
[2021-01-10 11:00] VITALS: BP 136/79
[2021-01-10 15:00] VITALS: BP 142/71
[2021-01-10 18:00] VITALS: BP 193/76
--- NOTE | 2021-01-10 18:06 | NUR ---
Problems reprioritized. Patient report given, questions answered & plan of care reviewed with Kelsey REGALADO.
[2021-01-10] MEDS: lactobacillus rhamnosus 10,000 MMU CELLS/CAPSULE PO SCH (19:11)
[2021-01-10] MEDS: traZODone 50mg tablet PO SCH (20:04)
[2021-01-10] MEDS: gabapentin 300mg capsule PO SCH (20:04)
[2021-01-10] MEDS: atorvastatin 20mg tablet PO SCH (20:04)
--- NOTE | 2021-01-10 22:10 | NUR ---
Notified Mahesh via phone call that pt's systolic BP is 220 - Mahesh ordered Norvasc 5 mg PO. I placed order and gave pt medication.
[2021-01-10] MEDS ORDERED: amLODIPine 5mg tablet PO ONE (22:35)
[2021-01-10] MEDS ORDERED: LORazepam 1 MG tablet PO ONE (22:35)
[2021-01-10] MEDS ORDERED: furosemide 40mg/4ml inj IV ONE (22:35)
--- NOTE | 2021-01-10 23:10 | NUR ---
NOtified Mahesh via phone call that patients bp still is 206 systolic and has barely came down since being given the 5mg Norvasc. Mahesh responded "It's going to take a while, give it another hour."
[2021-01-11] VITALS (9 sets, daily range): BP systolic 141–214; BP diastolic 62–86
--- NOTE | 2021-01-11 01:50 | NUR ---
Notified Mahesh that pt's blood pressure is still in the 200's systolic despite waiting for the Norvasc 5 mg PO that was given. He ordered 25 mg Lopressor PO once - I placed the order and administered the medication.
[2021-01-11] MEDS: ipratropium/albuterol 3ml nebule NEB SCH ×4 (02:07→19:57)
[2021-01-11] MEDS ORDERED: metoprolol tartrate 25mg tablet PO SCH ×2 (02:10→08:00)
--- NOTE | 2021-01-11 02:10 | NUR ---
Notified Mahesh that the patient has persistently refused to the the 25 mg PO Lopressor. He ordered Clonidine 0.1 mg TD once. I placed the order and administered the medication.
[2021-01-11] MEDS: metoprolol tartrate 25mg tablet PO ONE ×2 (02:14→02:56)
[2021-01-11] MEDS ORDERED: cloNIDine 0.1 MG/24 HOUR patch (7 day patch) TD ONE (02:25)
--- NOTE | 2021-01-11 04:40 | NUR ---
Notified Mahesh that the patients bp systolic is still in the 200's systolic despite giving the catapres 2 hours ago. He responded "It was the patch right?" I responded yes. He responded "It takes awhile. Thanks."
--- NOTE | 2021-01-11 05:07 | NUR ---
pt is increasingly agitated and refused scheduled AM labs.
--- NOTE | 2021-01-11 06:25 | NUR ---
Patient in room PCU 3028. I have received report from Kelsey REGALADO and had the opportunity to ask questions and assume patient care.
--- NOTE | 2021-01-11 06:32 | NUR ---
Problems reprioritized. Patient report given, questions answered & plan of care reviewed with FABRICIO Sosa.
--- NOTE | 2021-01-11 06:56 | NUR ---
Patient in room PCU 3028. I have received report from FABRICIO Cole and had the opportunity to ask questions and assume patient care.
--- NOTE | 2021-01-11 06:56 | NUR ---
Patient in room PCU 3028. I have received report from Kelsey REGALADO and had the opportunity to ask questions and assume patient care.
[2021-01-11] MEDS: CefTRIAXone/D5W-Rocephin 1gm 50 ML IV SCH (07:22)
[2021-01-11] MEDS: K and/or MAG REPLACEMENT MC SCH ×2 (08:00→20:00)
[2021-01-11] MEDS: methylPREDNISolone sod succ/PF 40mg inj. IV SCH ×2 (08:00→19:48)
[2021-01-11] MEDS: RYTHMOL PO SCH ×2 (08:22→19:48)
[2021-01-11] MEDS: pantoprazole 40mg Tablet.DR PO SCH (08:25)
[2021-01-11] MEDS: amLODIPine 5mg tablet PO SCH (08:25)
[2021-01-11] MEDS: isosorbide mononitrate 30mg tab.SR.24H PO SCH (08:25)
[2021-01-11] MEDS: sertraline 50mg tablet PO SCH (08:26)
[2021-01-11] MEDS: lactobacillus rhamnosus 10,000 MMU CELLS/CAPSULE PO SCH ×2 (08:26→19:48)
[2021-01-11] MEDS: apixaban 5mg tablet PO SCH ×2 (08:26→19:48)
[2021-01-11] MEDS: docusate sod 100mg capsule PO SCH ×2 (08:26→19:48)
[2021-01-11] MEDS: losartan 50mg tablet PO SCH (08:27)
[2021-01-11] MEDS: HYDROcodone/acetaminophen 5mg/325mg tablet PO PRN (08:53)
[2021-01-11] MEDS: budesonide 0.5mg/2ml UD nebule IH SCH ×2 (09:06→19:57)
[2021-01-11] MEDS: azithromycin/NS 500mg/250ml 250 ML IV SCH (09:33)
--- NOTE | 2021-01-11 10:07 | NUR ---
Student Medication Administration: For this medication-pass time frame, all medication were reviewed, dispensed, administered and documented per hospital policy by Estefania Murphy and Estefania Rubin, nursing students.
[2021-01-11] MEDS ORDERED: HYDROcodone/acetaminophen 10/325mg tab PO PRN (11:00)
--- NOTE | 2021-01-11 11:00 | NUR ---
Spoke directly with Dr. George regarding patients pain and hypertension. He gave order to increase Delphos from 5 to . He will also look into her hypertension medications and make needed adjustments.
--- NOTE | 2021-01-11 11:53 | NUR ---
Student documentation: I have reviewed and agree with all interventions, assessments performed and documented by Estefania Rubin, nursing unit manager.
--- NOTE | 2021-01-11 12:10 | NUR ---
Problems reprioritized. Patient report given, questions answered & plan of care reviewed with FABRICIO Sosa.
--- NOTE | 2021-01-11 12:10 | NUR ---
Problems reprioritized. Patient report given, questions answered & plan of care reviewed with FABRICIO Sosa RN .
--- NOTE | 2021-01-11 18:49 | NUR ---
Problems reprioritized. Patient report given, questions answered & plan of care reviewed with Conchita REGALADO.
--- NOTE | 2021-01-11 18:57 | NUR ---
Patient in room PCU 3028. I have received report from FABRICIO Sosa and had the opportunity to ask questions and assume patient care.
--- NOTE | 2021-01-11 19:00 | NUR ---
Pt had BP of 211/85 called brandie ordered one time dose of norvasc now and one time dose of 50 mg cozaar if systolic was over 180 at 1999.
[2021-01-11] MEDS ORDERED: amLODIPine 5mg tablet PO ONE (19:15)
[2021-01-11] MEDS: traZODone 50mg tablet PO SCH (20:13)
[2021-01-11] MEDS: gabapentin 300mg capsule PO SCH (20:13)
[2021-01-11] MEDS: atorvastatin 20mg tablet PO SCH (20:13)
[2021-01-11] MEDS ORDERED: losartan 50mg tablet PO PRN (20:20)
--- NOTE | 2021-01-11 20:33 | NUR ---
Pt pupils looked unequal had Charge, FABRICIO Coleman come check and she said they were still reactive and continue to monitor at this time. Patient is asymptomatic.
[2021-01-11] MEDS: hydrALAZINE 20mg/ml inj. IV PRN (21:58)
--- NOTE | 2021-01-11 22:07 | NUR ---
Pt had BP of 214/86 HR72 at 2016 gave cozaar as ordered just retook BP at 2145 and BP was 206/79. Gave patient hydralazine PRN and will continue to monitor. Pt denies any symptoms.
[2021-01-12] MEDS ORDERED: cloNIDine 0.1 mg tablet PO ONE (00:15)
--- NOTE | 2021-01-12 00:15 | NUR ---
Pt BP 197/80 HR 74 after receiving hydralazine. Called Dr. Aragon and he ordered clonidine 0.1 mg PO. Will administer clonidine and continue to monitor.
[2021-01-12 02:00] VITALS: BP 180/71
[2021-01-12 03:53] VITALS: BP 198/81
--- NOTE | 2021-01-12 03:54 | NUR ---
Patient BP 198/81 and HR of 62. Will give PRN hydralazine and continue to monitor.
[2021-01-12] MEDS: hydrALAZINE 20mg/ml inj. IV PRN ×2 (04:01→10:18)
[2021-01-12 06:03] LABS: BASOPHILS % (AUTO) 0.4 % (0-1); EOSINOPHILS % (AUTO) 0 % (0-6); HEMATOCRIT 33.4 % (35.0-45.0); HEMOGLOBIN 11.3 g/dl (12.0-16.0); LYMPHOCYTES # (AUTO) 0.7 X10'3 (1.1-4.8); MEAN CORPUSCULAR HEMOGLOBIN 30.8 PG (27.0-31.0); MEAN CORPUSCULAR HGB CONC 33.7 g/dL (33.0-36.5); MEAN CORPUSCULAR VOLUME 91.4 FL (78-98); MEAN PLATELET VOLUME 7.7 FL (7.4-10.4); MONOCYTES # (AUTO) 0.5 X10'3 (0-0.9); MONOCYTES % (AUTO) 6.4 % (2-12); NEUTROPHILS % (AUTO) 83.2 % (42-75); PLATELET COUNT 213 X10'3 (140-440); RED BLOOD COUNT 3.66 X10'6 (4.20-5.60); RED CELL DISTRIBUTION WIDTH 14.7 % (11.5-14.5); WHITE BLOOD COUNT 7.2 X10'3 (4.5-11.0)
[2021-01-12 06:18] LABS: ANION GAP 11 (8-16); BLOOD UREA NITROGEN 41 MG/DL (7-18); CALCIUM 8.7 MG/DL (8.5-10.1); CHLORIDE 105 MMOL/L (99-107); CREATININE 1.95 MG/DL (0.40-0.90); GLUCOSE 118 MG/DL (70-104); POTASSIUM 4.2 MMOL/L (3.5-5.1); SODIUM 140 MMOL/L (135-145); TOTAL CARBON DIOXIDE 23.8 MMOL/L (24-32); eGFR 25 ML/MIN
--- NOTE | 2021-01-12 06:36 | NUR ---
Patient in room PCU 3028. I have received report from Conchita REGALADO and had the opportunity to ask questions and assume patient care.
--- NOTE | 2021-01-12 06:36 | NUR ---
Problems reprioritized. Patient report given, questions answered & plan of care reviewed with FABRICIO Sosa.
[2021-01-12] MEDS: azithromycin/NS 500mg/250ml 250 ML IV SCH (07:05)
[2021-01-12] MEDS: losartan 50mg tablet PO SCH (07:13)
[2021-01-12] MEDS: sertraline 50mg tablet PO SCH (07:13)
[2021-01-12] MEDS: docusate sod 100mg capsule PO SCH (07:14)
[2021-01-12] MEDS: lactobacillus rhamnosus 10,000 MMU CELLS/CAPSULE PO SCH (07:14)
[2021-01-12] MEDS: pantoprazole 40mg Tablet.DR PO SCH (07:14)
[2021-01-12] MEDS: apixaban 5mg tablet PO SCH (07:14)
[2021-01-12] MEDS: RYTHMOL PO SCH (07:14)
[2021-01-12] MEDS: methylPREDNISolone sod succ/PF 40mg inj. IV SCH (07:15)
[2021-01-12] MEDS: CefTRIAXone/D5W-Rocephin 1gm 50 ML IV SCH (07:15)
[2021-01-12] MEDS: isosorbide mononitrate 30mg tab.SR.24H PO SCH (07:15)
[2021-01-12 07:24] VITALS: BP 159/70
[2021-01-12] MEDS: K and/or MAG REPLACEMENT MC SCH (08:00)
[2021-01-12] MEDS ORDERED: amLODIPine 5mg tablet PO SCH (08:00)
[2021-01-12] MEDS: budesonide 0.5mg/2ml UD nebule IH SCH (08:32)
[2021-01-12] MEDS: ipratropium/albuterol 3ml nebule NEB SCH (08:32)
[2021-01-12] MEDS ORDERED: CEFD300C3 PO (09:51)
[2021-01-12] MEDS ORDERED: AMLO10TA53 PO (09:51)
[2021-01-12 10:18] VITALS: BP 182/70
[2021-01-12 10:24] VITALS: BP 145/60
[2021-01-12 11:00] VITALS: BP 141/55
--- NOTE | 2021-01-12 13:06 | NUR ---
Patient stable and comfortable at time of discharge, all valuables gathered, placed in bag and given to patient for discharge. Removed Telemetry and PIV with cannula intact. No redness or irritation at PIV site. Gave and discussed in detail all discharge information and discharge education with patient and patient family member. Patient and family member were able to ask questions and receive answers. Patient and family member were able to verbalize back all discharge information and discharge education. Family member is going to take valuables and information down to car and then return to take patient home. Addendum: 01/12/21 at 1344 by Santosh Matta RN Wheeled patient out to lobby in wheel chair by staff accompanied by patients daughter. Patient left hospital in private car with Daughter
== END 2021-01-12 13:40 | disposition home health service (06) | DRG 193 ==
LOC: ER 03:47 → ED HOLD 08:54 → PCU 3S 01-09 23:09
PROVIDERS: ADMIT Internal Medicine; ATTEND Internal Medicine
DX: J18.9 Pneumonia, unspecified organism (principal); J96.21 Acute and chronic respiratory failure with hypoxia; N17.0 Acute kidney failure with tubular necrosis; J44.0 Chronic obstructive pulmonary disease with (acute) lower respiratory infection; I13.0 Hypertensive heart and chronic kidney disease with heart failure and stage 1 through stage 4 chronic kidney disease, or unspecified chronic kidney disease; I50.30 Unspecified diastolic (congestive) heart failure; E78.5 Hyperlipidemia, unspecified; N18.9 Chronic kidney disease, unspecified; I71.4 Abdominal aortic aneurysm, without rupture; I25.10 Atherosclerotic heart disease of native coronary artery without angina pectoris; F32.A Depression, unspecified; F41.9 Anxiety disorder, unspecified; Z20.822 Contact with and (suspected) exposure to COVID-19; Z80.52 Family history of malignant neoplasm of bladder; Z86.73 Personal history of transient ischemic attack (TIA), and cerebral infarction without residual deficits; Z88.8 Allergy status to other drugs, medicaments and biological substances; Z80.51 Family history of malignant neoplasm of kidney; Z79.899 Other long term (current) drug therapy; Z99.81 Dependence on supplemental oxygen; Z79.01 Long term (current) use of anticoagulants
CPT/HCPCS: 36415; 36600; 71045; 80048; 80053; 82803; 83605; 83880; 84145; 84484; 85007; 85018; 85025; 85379; 85610; 85730; 87040; 87635; 93005; 94640; 94760; 96361; 96365; 96368; 96375; 97116; 97161; 97530; 97535; 99285; C9803; G0378; J0360; J0456; J0696; J1100; J1644; J1940; J2920; J7030; J7626

== ENCOUNTER 2021-01-28 14:10 | Emergency (ER) | payer MEDICARE, OTHER ==
[~2021-01-28] VITALS: Ht 154.9 cm; Wt 72.7 kg
[~2021-01-28 14:10] MED LIST changes: -AMLO10TA PO; +AMLO10TA53 PO; -CALC200T42 PO
[2021-01-28] MEDS ORDERED: TETanus/Pertussis (Acell)/Diphther VAC/PF (Tdap-Adult) 0.5ml syringe IMVAC ONE (14:45)
[2021-01-28] MEDS ORDERED: cocaine 4% topical solution 4ml bottle MM ONE (15:05)
[2021-01-28 15:12] LABS: BASOPHILS # (AUTO) 0.1 X10'3 (0-0.2); BASOPHILS % (AUTO) 1.1 % (0-1); EOSINOPHILS # (AUTO) 0.1 X10'3 (0-0.9); EOSINOPHILS % (AUTO) 1.7 % (0-6); HEMATOCRIT 32.8 % (35.0-45.0); LYMPHOCYTES # (AUTO) 0.9 X10'3 (1.1-4.8); LYMPHOCYTES % (AUTO) 16.1 % (21-51); MEAN CORPUSCULAR HEMOGLOBIN 30.1 PG (27.0-31.0); MEAN CORPUSCULAR HGB CONC 33.5 g/dL (33.0-36.5); MEAN CORPUSCULAR VOLUME 89.7 FL (78-98); MEAN PLATELET VOLUME 7.3 FL (7.4-10.4); MONOCYTES # (AUTO) 0.4 X10'3 (0-0.9); MONOCYTES % (AUTO) 7.6 % (2-12); NEUTROPHILS # (AUTO) 4.3 X10'3 (1.8-7.7); NEUTROPHILS % (AUTO) 73.5 % (42-75); PLATELET COUNT 209 X10'3 (140-440); RED BLOOD COUNT 3.66 X10'6 (4.20-5.60); RED CELL DISTRIBUTION WIDTH 14.7 % (11.5-14.5); WHITE BLOOD COUNT 5.8 X10'3 (4.5-11.0)
[2021-01-28 15:32] LABS: ALANINE AMINOTRANSFERASE 12 U/L (12-78); ALBUMIN 3.4 G/DL (3.4-5.0); ALBUMIN/GLOBULIN RATIO 0.8 (1.1-1.5); ALKALINE PHOSPHATASE 112 IU/L (46-116); ANION GAP 9 (8-16); ASPARTATE AMINO TRANSFERASE 19 U/L (10-37); BILIRUBIN,TOTAL 0.5 MG/DL (0.1-1.0); BLOOD UREA NITROGEN 19 MG/DL (7-18); BUN/CREATININE RATIO 7.8 (6.6-38.0); CALCIUM 8.9 MG/DL (8.5-10.1); CHLORIDE 104 MMOL/L (99-107); CREATININE 2.44 MG/DL (0.40-0.90); GLUCOSE 103 MG/DL (70-104); SODIUM 145 MMOL/L (135-145); TOTAL CARBON DIOXIDE 31.8 MMOL/L (24-32); TOTAL PROTEIN 7.9 G/DL (6.4-8.2); eGFR 19 ML/MIN
--- NOTE | 2021-01-28 15:45 | NUR ---
CLARIFIED WITH PT DAUGHTER IF PT HAS RECIVED TETANUS INJ PER DAUGHTER PT HAS NOT RECIVIED TETANUS INJ IN PAST 5 YEAR.
--- NOTE | 2021-01-28 15:46 | NUR ---
DR WHARTON AGREE TO ORDER PHNEYLEPHRINE 0.5% STRENGTH THEN 0.25 % STRENGTH.
[2021-01-28] MEDS ORDERED: phenylephrine 0.5% nose drops 15ml NS PRN (15:50)
--- NOTE | 2021-01-28 16:00 | NUR ---
DR REYES AT BEDSIDE.
[2021-01-28] MEDS ORDERED: AMOX-422 PO (16:07)
[2021-01-28] MEDS ORDERED: [UNRECOGNIZED DRUG - OTHER] TP ONE (16:10)
[2021-01-28] MEDS ORDERED: ONDA4TAB6 PO ×2 (16:10→16:11)
[2021-01-28] MEDS ORDERED: BENZOIN TP ONE (16:10)
[2021-01-28] MEDS ORDERED: ALOE VERA TP ONE (16:10)
--- NOTE | 2021-01-28 17:22 | NUR ---
DISCUSSED WITH DR REYES IF WE NEED TO DO X RAY OF PATIENT HAND IT LOOKS DEFORMED PER SHE HAD CVA HX AND THAT WHY IT LOOKS LIKE DEFORM .PT IS STABLE TO D/C HOME.
[2021-01-28 18:02] VITALS: BP 161/91
== END 2021-01-28 18:00 | disposition home or self-care (01) ==
LOC: ER 14:10
DX: S61.411A Laceration without foreign body of right hand, initial encounter (principal); N18.9 Chronic kidney disease, unspecified; R04.0 Epistaxis; I11.0 Hypertensive heart disease with heart failure; I50.9 Heart failure, unspecified; J44.9 Chronic obstructive pulmonary disease, unspecified; F41.9 Anxiety disorder, unspecified; F32.9 Major depressive disorder, single episode, unspecified; Z20.3 Contact with and (suspected) exposure to rabies; Z86.73 Personal history of transient ischemic attack (TIA), and cerebral infarction without residual deficits; Z95.0 Presence of cardiac pacemaker; Z98.890 Other specified postprocedural states; Z88.1 Allergy status to other antibiotic agents; Z79.2 Long term (current) use of antibiotics; Z79.899 Other long term (current) drug therapy; X58.XXXA Exposure to other specified factors, initial encounter; Y93.89 Activity, other specified; Y92.89 Other specified places as the place of occurrence of the external cause; Y99.8 Other external cause status
CPT/HCPCS: 30901; 36415; 71045; 80053; 84443; 84484; 85025; 90471; 90715; 93005; 99285

== ENCOUNTER 2021-02-01 07:36 | Emergency (ER) | payer MEDICARE, OTHER ==
[~2021-02-01] VITALS: Ht 154.9 cm; Wt 72.7 kg
[~2021-02-01 07:36] MED LIST changes: +AMOX-422 PO; +ONDA4TAB6 PO
[2021-02-01 07:41] VITALS: BP 112/78
== END 2021-02-01 17:35 | disposition home or self-care (01) ==
LOC: ER 07:36
DX: S61.411A Laceration without foreign body of right hand, initial encounter (principal); R04.0 Epistaxis; Z48.00 Encounter for change or removal of nonsurgical wound dressing; J44.9 Chronic obstructive pulmonary disease, unspecified; I11.0 Hypertensive heart disease with heart failure; I50.9 Heart failure, unspecified; N19 Unspecified kidney failure; Z86.73 Personal history of transient ischemic attack (TIA), and cerebral infarction without residual deficits; Z95.0 Presence of cardiac pacemaker; Z98.890 Other specified postprocedural states; Z87.891 Personal history of nicotine dependence; Z79.899 Other long term (current) drug therapy; Z79.2 Long term (current) use of antibiotics; Z88.1 Allergy status to other antibiotic agents; Z79.01 Long term (current) use of anticoagulants; W19.XXXA Unspecified fall, initial encounter; Y93.89 Activity, other specified; Y92.89 Other specified places as the place of occurrence of the external cause; Y99.8 Other external cause status
CPT/HCPCS: 99281

== ENCOUNTER 2021-04-29 13:31 | Emergency (ER) | payer MEDICARE, OTHER ==
[~2021-04-29] VITALS: Ht 154.9 cm; Wt 70.0 kg
[~2021-04-29 13:31] MED LIST changes: -AMLO10TA53 PO; +AMLO5TAB PO; -AMOX-422 PO; -ATOR20TA PO; +CARV-50 PO; -CHOL10002 PO; -GABA-532 PO; -ISOS30TA84 PO; -NITR0.4T48 SL; -ONDA4TAB6 PO; -POTA-82 PO; -TRAZ-251 PO
[2021-04-29 13:43] VITALS: BP 153/62
--- NOTE | 2021-04-29 14:36 | NUR ---
DR. SANCHEZ AT BEDSIDE.
== END 2021-04-30 03:45 | disposition home or self-care (01) ==
LOC: ER 13:32
DX: R04.0 Epistaxis (principal); I50.9 Heart failure, unspecified; I11.0 Hypertensive heart disease with heart failure; J44.9 Chronic obstructive pulmonary disease, unspecified; F41.9 Anxiety disorder, unspecified; F32.A Depression, unspecified; F17.210 Nicotine dependence, cigarettes, uncomplicated; Z86.73 Personal history of transient ischemic attack (TIA), and cerebral infarction without residual deficits; Z95.0 Presence of cardiac pacemaker; Z88.1 Allergy status to other antibiotic agents; Z79.899 Other long term (current) drug therapy
CPT/HCPCS: 30901; 99281; 99284

== ENCOUNTER 2021-05-01 11:07 | Emergency (ER) | payer MEDICARE, OTHER ==
[~2021-05-01] VITALS: Ht 154.9 cm; Wt 74.0 kg
[2021-05-01 11:18] VITALS: BP 135/62
[2021-05-01] MEDS ORDERED: tranexamic acid 100mg/ml inj. TP ONE (11:45)
--- NOTE | 2021-05-01 12:10 | NUR ---
placed rhoni rocket left nare
== END 2021-05-01 12:39 | disposition home or self-care (01) ==
LOC: ER 11:08
DX: R04.0 Epistaxis (principal); I11.0 Hypertensive heart disease with heart failure; I50.9 Heart failure, unspecified; Z85.3 Personal history of malignant neoplasm of breast; Z85.118 Personal history of other malignant neoplasm of bronchus and lung; Z95.0 Presence of cardiac pacemaker; Z95.5 Presence of coronary angioplasty implant and graft; Z98.890 Other specified postprocedural states; Z88.1 Allergy status to other antibiotic agents; Z79.899 Other long term (current) drug therapy
CPT/HCPCS: 30901; 99281; 99284

== ENCOUNTER 2021-05-04 12:47 | Emergency (ER) | payer MEDICARE, OTHER ==
[~2021-05-04] VITALS: Ht 154.9 cm; Wt 70.0 kg
[2021-05-04 13:43] LABS: BASOPHILS % (AUTO) 0.4 % (0-1); EOSINOPHILS # (AUTO) 0.1 X10'3 (0-0.9); HEMATOCRIT 32.5 % (35.0-45.0); HEMOGLOBIN 10.7 g/dl (12.0-16.0); LYMPHOCYTES # (AUTO) 0.6 X10'3 (1.1-4.8); LYMPHOCYTES % (AUTO) 10.7 % (21-51); MEAN CORPUSCULAR HGB CONC 32.8 g/dL (33.0-36.5); MEAN CORPUSCULAR VOLUME 88.3 FL (78-98); MEAN PLATELET VOLUME 7.3 FL (7.4-10.4); MONOCYTES # (AUTO) 0.3 X10'3 (0-0.9); NEUTROPHILS # (AUTO) 4.3 X10'3 (1.8-7.7); NEUTROPHILS % (AUTO) 81.9 % (42-75); PLATELET COUNT 174 X10'3 (140-440); RED BLOOD COUNT 3.68 X10'6 (4.20-5.60); RED CELL DISTRIBUTION WIDTH 15.8 % (11.5-14.5); WHITE BLOOD COUNT 5.3 X10'3 (4.5-11.0)
[2021-05-04 13:50] LABS: ALANINE AMINOTRANSFERASE 14 U/L (12-78); ALBUMIN 3.7 G/DL (3.4-5.0); ALBUMIN/GLOBULIN RATIO 0.9 (1.1-1.5); ALKALINE PHOSPHATASE 86 IU/L (46-116); ANION GAP 11 (8-16); ASPARTATE AMINO TRANSFERASE 19 U/L (10-37); BILIRUBIN,TOTAL 0.6 MG/DL (0.1-1.0); BLOOD UREA NITROGEN 35 MG/DL (7-18); BUN/CREATININE RATIO 12.8 (6.6-38.0); CALCIUM 8.9 MG/DL (8.5-10.1); CHLORIDE 102 MMOL/L (99-107); CREATININE 2.74 MG/DL (0.40-0.90); GLUCOSE 96 MG/DL (70-104); SODIUM 140 MMOL/L (135-145); TOTAL CARBON DIOXIDE 27.4 MMOL/L (24-32); TOTAL PROTEIN 7.9 G/DL (6.4-8.2); eGFR 17 ML/MIN
[2021-05-04 15:57] VITALS: BP 150/80
[2021-05-04] MEDS ORDERED: ERYT1OIN6 RIGHTEYE (16:36)
== END 2021-05-04 16:50 | disposition home or self-care (01) ==
LOC: ER 12:48
DX: Z13.89 Encounter for screening for other disorder (principal); H57.11 Ocular pain, right eye; R07.89 Other chest pain; I11.0 Hypertensive heart disease with heart failure; I50.9 Heart failure, unspecified; J44.9 Chronic obstructive pulmonary disease, unspecified; F41.9 Anxiety disorder, unspecified; F32.A Depression, unspecified; Z86.73 Personal history of transient ischemic attack (TIA), and cerebral infarction without residual deficits; Z85.3 Personal history of malignant neoplasm of breast; Z85.118 Personal history of other malignant neoplasm of bronchus and lung; Z95.0 Presence of cardiac pacemaker; Z98.890 Other specified postprocedural states; Z88.1 Allergy status to other antibiotic agents; Z79.2 Long term (current) use of antibiotics; Z79.899 Other long term (current) drug therapy
CPT/HCPCS: 36415; 71045; 80053; 83880; 84484; 85025; 93005; 99285

== ENCOUNTER 2021-05-18 08:31 | Inpatient (IN) | payer MEDICARE, OTHER ==
[~2021-05-18] VITALS: Ht 154.9 cm; Wt 75.0 kg
[2021-05-18 09:13] LABS: BASOPHILS % (AUTO) 1.5 % (0-1); HEMATOCRIT 24.5 % (35.0-45.0); HEMOGLOBIN 8.1 g/dl (12.0-16.0); LYMPHOCYTES # (AUTO) 0.2 X10'3 (1.1-4.8); LYMPHOCYTES % (AUTO) 21.6 % (21-51); MEAN CORPUSCULAR HEMOGLOBIN 28.6 PG (27.0-31.0); MEAN CORPUSCULAR HGB CONC 32.9 g/dL (33.0-36.5); MEAN CORPUSCULAR VOLUME 86.9 FL (78-98); MONOCYTES # (AUTO) 0.1 X10'3 (0-0.9); MONOCYTES % (AUTO) 9.2 % (2-12); NEUTROPHILS # (AUTO) 0.5 X10'3 (1.8-7.7); NEUTROPHILS % (AUTO) 64.7 % (42-75); PLATELET COUNT 85 X10'3 (140-440); RED BLOOD COUNT 2.82 X10'6 (4.20-5.60); RED CELL DISTRIBUTION WIDTH 15.1 % (11.5-14.5)
--- NOTE | 2021-05-18 09:26 | NUR ---
call to daughter marques, states she is on her way to see patient.
[2021-05-18 09:32] LABS: ALANINE AMINOTRANSFERASE 9 U/L (12-78); ALBUMIN 3.1 G/DL (3.4-5.0); ALBUMIN/GLOBULIN RATIO 0.9 (1.1-1.5); ALKALINE PHOSPHATASE 75 IU/L (46-116); ANION GAP 9 (8-16); ASPARTATE AMINO TRANSFERASE 11 U/L (10-37); BLOOD UREA NITROGEN 37 MG/DL (7-18); BUN/CREATININE RATIO 12.7 (6.6-38.0); CALCIUM 8.9 MG/DL (8.5-10.1); CHLORIDE 104 MMOL/L (99-107); CREATININE 2.92 MG/DL (0.40-0.90); GLUCOSE 122 MG/DL (70-104); MAGNESIUM 1.9 MG/DL (1.5-2.4); POTASSIUM 4.8 MMOL/L (3.5-5.1); SODIUM 142 MMOL/L (135-145); TOTAL CARBON DIOXIDE 29.1 MMOL/L (24-32); TOTAL PROTEIN 6.7 G/DL (6.4-8.2); eGFR 16 ML/MIN
--- NOTE | 2021-05-18 09:36 | NUR ---
XR tech at bedside at this time.
[2021-05-18 09:40] LABS: WHITE BLOOD COUNT 0.7 X10'3 (4.5-11.0)
[2021-05-18] MEDS ORDERED: morphine 4 MG/ML inj SYRINge IV ONE (09:45)
[2021-05-18] MEDS ORDERED: ondansetron/PF 4mg/2ml inj IV ONE (09:45)
[2021-05-18 09:54] LABS: CLARITY,URINE CLEAR (Clear); COLOR,URINE YELLOW (Yellow); GLUCOSE, URINE NEGATIVE (Neg); KETONES,URINE NEGATIVE (Neg); LEUKOCYTE ESTERASE ,URINE NEGATIVE (Neg); NITRITES, URINE NEGATIVE (Neg); OCCULT BLOOD,URINE NEGATIVE (Neg); PROTEIN,URINE NEGATIVE (Neg); UROBILINOGEN,URINE 0.2 E.U/dL (0.2-1.0)
[2021-05-18 09:55] LABS: UA COLLECTION TYPE STRAIGHT CATH
[2021-05-18] MEDS ORDERED: acetaminophen 325mg tablet PO ONE (10:25)
[2021-05-18] MEDS ORDERED: normal saline 1000ML IV soln IV ONE (10:25)
--- NOTE | 2021-05-18 12:39 | NUR ---
pt. unabl to ambulate successfully to the doorway of her hospital room. pt denied sob but endorses bilateral lower extremity weakness and dizziness. pt did not fall. daughter at bedside
[2021-05-18] MEDS ORDERED: acetaminophen 325mg tablet PO PRN (13:20)
[2021-05-18] MEDS ORDERED: magnesium hydroxide 30ml (MOM) UD suspension PO PRN (13:20)
[2021-05-18] MEDS ORDERED: ondansetron/PF 4mg/2ml inj IV PRN (13:20)
[2021-05-18] MEDS ORDERED: mag hydrox/Alum hydrox/simeth 30ml oral suspension PO PRN (13:20)
[2021-05-18] MEDS ORDERED: potassium CL 10mEq/100ml bag 100 ML IV PRN (13:20)
[2021-05-18] MEDS ORDERED: potassium Cl 20 mEq SR tablet PO PRN ×2 (13:20)
[2021-05-18] MEDS ORDERED: magnesium Cl slow-release 64mg tablet PO PRN (13:20)
[2021-05-18] MEDS ORDERED: magnesium 2GM in 50ml NS 50 ML IV PRN (13:20)
[2021-05-18] MEDS ORDERED: magnesium 4gm in 100ml NS 100 ML IV PRN (13:20)
[2021-05-18] MEDS: normal saline 1000ml 1,000 ML IV SCH (13:55)
[2021-05-18] MEDS ORDERED: ONDA-103 PO (14:21)
[2021-05-18] MEDS ORDERED: ATOR40TA72 PO (14:21)
[2021-05-18] MEDS ORDERED: POTA-82 PO (14:21)
[2021-05-18] MEDS ORDERED: FLUT1BLS13 PO (14:21)
[2021-05-18] MEDS ORDERED: TRAZ-251 PO (14:21)
[2021-05-18] MEDS ORDERED: filgrastim 300mcg inj SQ ONE (15:00)
--- NOTE | 2021-05-18 17:45 | NUR ---
Patient arrived to room via stretcher awake alert and verbally responsive, denies pain or discomfort at time, no distress noted, call light within reach, safety measure maintain.
[2021-05-18 18:06] VITALS: BP 137/73
[2021-05-18] MEDS: docusate sod 100mg capsule PO SCH (19:35)
[2021-05-18] MEDS: carVEDilol 12.5mg tablet PO SCH (19:35)
[2021-05-18] MEDS: HYDROcodone/acetaminophen 10/325mg tab PO PRN (19:36)
[2021-05-18] MEDS: PROPAFENONE HCL 225 MG PO SCH (19:40)
--- NOTE | 2021-05-18 19:53 | NUR ---
Spoke with patient's daughter Debbie Redd who stated she will be able to bring patient's Propafenone HCL in the morning. SBAR also updated with Debbie's best contact phone number.
[2021-05-18] MEDS ORDERED: [UNRECOGNIZED DRUG - OTHER] PO SCH (20:00)
[2021-05-18] MEDS: K and/or MAG REPLACEMENT MC SCH (20:00)
[2021-05-18] MEDS ORDERED: FLUTICASONE PROPION PO SCH (20:00)
[2021-05-18] MEDS: heparin, porcine 5000 units/ml vial SQ SCH (20:00)
[2021-05-18] MEDS ORDERED: SALMETEROL PO SCH (20:00)
--- NOTE | 2021-05-18 20:08 | NUR ---
pt states new left leg weakness starting today. "it wouldn't hold me up so I fell against the drawer and got that big bruise on my right leg". pt denies pain, able to push/pull, hold up off bed etc. no neuro changes noted at this time. asked pt if it "buckled" when she tried to stand on it and she replied "I think so." also noted in assessment that pt has very loose skin under bilateral eyes that seems swollen and droopy. no discomfort noted.
[2021-05-18] MEDS: albuterol 2.5 MG/3 ML nebule NEB SCH (21:00)
[2021-05-18] MEDS: budesonide 0.5mg/2ml UD nebule IH SCH (21:00)
[2021-05-18] MEDS: traZODone 50mg tablet PO SCH (21:00)
[2021-05-18 22:18] VITALS: BP 126/53
[2021-05-19 02:00] VITALS: BP 147/69
[2021-05-19] MEDS: albuterol 2.5 MG/3 ML nebule NEB SCH ×4 (03:18→19:44)
[2021-05-19] MEDS: HYDROcodone/acetaminophen 10/325mg tab PO PRN ×2 (05:30→13:29)
[2021-05-19] MEDS: normal saline 1000ml 1,000 ML IV SCH ×2 (05:30→22:44)
[2021-05-19 06:00] VITALS: BP 160/70
[2021-05-19 06:19] LABS: ANION GAP 9 (8-16); BLOOD UREA NITROGEN 33 MG/DL (7-18); BUN/CREATININE RATIO 13.5 (6.6-38.0); CALCIUM 8.2 MG/DL (8.5-10.1); CHLORIDE 108 MMOL/L (99-107); CREATININE 2.45 MG/DL (0.40-0.90); GLUCOSE 108 MG/DL (70-104); POTASSIUM 4.3 MMOL/L (3.5-5.1); SODIUM 143 MMOL/L (135-145); TOTAL CARBON DIOXIDE 26.3 MMOL/L (24-32); eGFR 19 ML/MIN
[2021-05-19 06:21] LABS: LYMPHOCYTES # (AUTO) 0.2 X10'3 (1.1-4.8); MONOCYTES # (AUTO) 0.1 X10'3 (0-0.9); NEUTROPHILS # (AUTO) 0.4 X10'3 (1.8-7.7); PLATELET COUNT 75 X10'3 (140-440)
[2021-05-19 06:23] LABS: BASOPHILS % (AUTO) 1.3 % (0-1); HEMOGLOBIN 7.3 g/dl (12.0-16.0); LYMPHOCYTES % (AUTO) 25.3 % (21-51); MEAN CORPUSCULAR HEMOGLOBIN 29.2 PG (27.0-31.0); MEAN CORPUSCULAR HGB CONC 33.7 g/dL (33.0-36.5); MEAN CORPUSCULAR VOLUME 86.6 FL (78-98); MEAN PLATELET VOLUME 8.4 FL (7.4-10.4); NEUTROPHILS % (AUTO) 53.4 % (42-75); RED BLOOD COUNT 2.52 X10'6 (4.20-5.60)
--- NOTE | 2021-05-19 06:26 | NUR ---
reported to days. noted pt resting. call light in reach.
[2021-05-19 06:33] LABS: WHITE BLOOD COUNT 0.7 X10'3 (4.5-11.0)
[2021-05-19 06:35] LABS: HEMATOCRIT 21.8 % (35.0-45.0)
[2021-05-19] MEDS: carVEDilol 12.5mg tablet PO SCH ×2 (08:00→20:46)
[2021-05-19] MEDS: pantoprazole 40mg Tablet.DR PO SCH (08:00)
[2021-05-19] MEDS: losartan 50mg tablet PO SCH (08:00)
[2021-05-19] MEDS: docusate sod 100mg capsule PO SCH ×2 (08:00→20:45)
[2021-05-19] MEDS: amLODIPine 5mg tablet PO SCH (08:00)
[2021-05-19] MEDS: sertraline 50mg tablet PO SCH (08:00)
[2021-05-19] MEDS: K and/or MAG REPLACEMENT MC SCH ×2 (08:00→20:00)
[2021-05-19] MEDS: furosemide 40mg tablet PO SCH (08:00)
[2021-05-19] MEDS: atorvastatin 20mg tablet PO SCH (08:00)
[2021-05-19] MEDS: heparin, porcine 5000 units/ml vial SQ SCH ×2 (08:00→20:00)
[2021-05-19] MEDS: potassium Cl 20 mEq SR tablet PO SCH (08:00)
[2021-05-19] MEDS: budesonide 0.5mg/2ml UD nebule IH SCH ×2 (08:01→19:44)
[2021-05-19] MEDS: PROPAFENONE HCL 225 MG PO SCH ×2 (11:56→20:46)
[2021-05-19 15:00] VITALS: BP 177/71
[2021-05-19 16:22] VITALS: BP 150/69
[2021-05-19] MEDS ORDERED: gabapentin 400mg capsule PO SCH (16:35)
[2021-05-19] MEDS ORDERED: aspirin 81mg, enteric-coated 1 TAB TABLET.DR PO ONE (17:55)
[2021-05-19 18:00] VITALS: BP 177/71
--- NOTE | 2021-05-19 18:00 | NUR ---
Patient in room MED 318. I have received report from ALTHEA REGALADO and had the opportunity to ask questions and assume patient care.
--- NOTE | 2021-05-19 18:30 | NUR ---
PATIENT HAD IV PULLED OUT, NEEDS TO BE CLOSER TO NURSING STATION
[2021-05-19] MEDS: traZODone 50mg tablet PO SCH (20:48)
[2021-05-19 22:00] VITALS: BP 148/58
[2021-05-20 02:00] VITALS: BP 159/61
[2021-05-20] MEDS: albuterol 2.5 MG/3 ML nebule NEB SCH ×4 (02:48→20:09)
[2021-05-20 06:00] VITALS: BP 161/62
[2021-05-20 06:07] LABS: BASOPHILS % (AUTO) 1.4 % (0-1); EOSINOPHILS % (AUTO) 1.2 % (0-6); HEMOGLOBIN 7.1 g/dl (12.0-16.0); LYMPHOCYTES # (AUTO) 0.3 X10'3 (1.1-4.8); LYMPHOCYTES % (AUTO) 22.3 % (21-51); MEAN CORPUSCULAR HEMOGLOBIN 29.3 PG (27.0-31.0); MEAN CORPUSCULAR HGB CONC 33.3 g/dL (33.0-36.5); MEAN CORPUSCULAR VOLUME 88.1 FL (78-98); MEAN PLATELET VOLUME 8.9 FL (7.4-10.4); MONOCYTES # (AUTO) 0.2 X10'3 (0-0.9); MONOCYTES % (AUTO) 19.9 % (2-12); NEUTROPHILS # (AUTO) 0.6 X10'3 (1.8-7.7); NEUTROPHILS % (AUTO) 55.2 % (42-75); PLATELET COUNT 90 X10'3 (140-440); RED BLOOD COUNT 2.42 X10'6 (4.20-5.60); WHITE BLOOD COUNT 1.2 X10'3 (4.5-11.0)
[2021-05-20 06:14] LABS: ALBUMIN 2.8 G/DL (3.4-5.0); ANION GAP 10 (8-16); BLOOD UREA NITROGEN 30 MG/DL (7-18); BUN/CREATININE RATIO 13.5 (6.6-38.0); CHLORIDE 108 MMOL/L (99-107); CREATININE 2.23 MG/DL (0.40-0.90); GLUCOSE 98 MG/DL (70-104); POTASSIUM 4.5 MMOL/L (3.5-5.1); SODIUM 143 MMOL/L (135-145); eGFR 21 ML/MIN
--- NOTE | 2021-05-20 06:28 | NUR ---
Problems reprioritized. Patient report given, questions answered & plan of care reviewed with HARPER REGALADO.
[2021-05-20 06:41] LABS: HEMATOCRIT 21.3 % (35.0-45.0)
[2021-05-20 07:07] LABS: ANISOCYTOSIS FEW; PLATELET ESTIMATE DECREASED; POIKILOCYTOSIS FEW; TOTAL CELLS COUNTED 100
[2021-05-20] MEDS: budesonide 0.5mg/2ml UD nebule IH SCH ×2 (07:16→20:09)
[2021-05-20] MEDS: heparin, porcine 5000 units/ml vial SQ SCH ×3 (08:00→20:35)
[2021-05-20] MEDS: potassium Cl 20 mEq SR tablet PO SCH (08:00)
[2021-05-20] MEDS: K and/or MAG REPLACEMENT MC SCH ×2 (08:00→20:00)
--- NOTE | 2021-05-20 09:00 | NUR ---
hEPARIN HELD DUE TO PLATLETS LESS THAN 100
[2021-05-20] MEDS: docusate sod 100mg capsule PO SCH ×2 (09:22→20:33)
[2021-05-20] MEDS: HYDROcodone/acetaminophen 10/325mg tab PO PRN ×2 (09:23→20:34)
[2021-05-20] MEDS: furosemide 40mg tablet PO SCH (09:23)
[2021-05-20] MEDS: pantoprazole 40mg Tablet.DR PO SCH (09:23)
[2021-05-20] MEDS: amLODIPine 5mg tablet PO SCH (09:24)
[2021-05-20] MEDS: sertraline 50mg tablet PO SCH (09:25)
[2021-05-20] MEDS: carVEDilol 12.5mg tablet PO SCH ×2 (09:25→20:35)
[2021-05-20] MEDS: aspirin 81mg, enteric-coated 1 TAB TABLET.DR PO SCH (09:25)
[2021-05-20] MEDS: atorvastatin 20mg tablet PO SCH (09:25)
[2021-05-20] MEDS: losartan 50mg tablet PO SCH (09:26)
[2021-05-20 10:00] VITALS: BP 154/55
[2021-05-20] MEDS ORDERED: gabapentin 400mg capsule PO PRN (11:36)
[2021-05-20] MEDS: PROPAFENONE HCL 225 MG PO SCH ×2 (13:30→20:46)
[2021-05-20 14:00] VITALS: BP 155/58
--- NOTE | 2021-05-20 14:06 | NUR ---
spoke with Debbie Redd Miss Montoya's daughter, to clarify the reported work she had done with PT. She was able to transfer but was not assessed for walking at this time. If PT is offered upon DC Miss Montoya wishes to have this done at home. Her daughter states there is a possibility of placing their own hospital bed on the lower level.
--- NOTE | 2021-05-20 17:00 | NUR ---
Miss Montoya has been assessed as indicated. She has been tearful and emotional often. She has had a large BM in the BSC. She was assisted to transfer with 2 people. She was evaluated by PT. She spent some time up to a chair today. She was successfully treated for pain x1 this shift and was treated with nebulizers as well
[2021-05-20] MEDS: normal saline 1000ml 1,000 ML IV SCH (17:03)
[2021-05-20 18:00] VITALS: BP 105/61
--- NOTE | 2021-05-20 18:00 | NUR ---
Problems reprioritized. Patient report given, questions answered & plan of care reviewed with
--- NOTE | 2021-05-20 18:00 | NUR ---
Problems reprioritized. Patient report given, questions answered & plan of care reviewed with
[2021-05-20] MEDS ORDERED: ipratropium/albuterol 3ml nebule NEB PRN (18:45)
--- NOTE | 2021-05-20 18:59 | NUR ---
Patient in room MED 314. I have received report from Shagufta REGALADO and had the opportunity to ask questions and assume patient care.
[2021-05-20 20:00] VITALS: BP 179/56
[2021-05-20] MEDS: traZODone 50mg tablet PO SCH (20:35)
[2021-05-21 02:00] VITALS: BP 180/63
[2021-05-21] MEDS: albuterol 2.5 MG/3 ML nebule NEB SCH ×4 (03:06→20:01)
[2021-05-21 06:00] VITALS: BP 185/68
[2021-05-21 06:07] LABS: BASOPHILS % (AUTO) 0.8 % (0-1); EOSINOPHILS % (AUTO) 1.2 % (0-6); LYMPHOCYTES # (AUTO) 0.3 X10'3 (1.1-4.8); LYMPHOCYTES % (AUTO) 17.8 % (21-51); MEAN CORPUSCULAR HEMOGLOBIN 29.4 PG (27.0-31.0); MEAN CORPUSCULAR HGB CONC 33.7 g/dL (33.0-36.5); MEAN CORPUSCULAR VOLUME 87.2 FL (78-98); MEAN PLATELET VOLUME 8.4 FL (7.4-10.4); MONOCYTES # (AUTO) 0.3 X10'3 (0-0.9); MONOCYTES % (AUTO) 19.3 % (2-12); NEUTROPHILS % (AUTO) 60.9 % (42-75); PLATELET COUNT 104 X10'3 (140-440); RED BLOOD COUNT 2.38 X10'6 (4.20-5.60); RED CELL DISTRIBUTION WIDTH 15.4 % (11.5-14.5); WHITE BLOOD COUNT 1.6 X10'3 (4.5-11.0)
[2021-05-21 06:10] LABS: HEMATOCRIT 20.7 % (35.0-45.0)
[2021-05-21 06:33] LABS: ANION GAP 11 (8-16); BLOOD UREA NITROGEN 37 MG/DL (7-18); BUN/CREATININE RATIO 14.6 (6.6-38.0); CALCIUM 8.4 MG/DL (8.5-10.1); CHLORIDE 107 MMOL/L (99-107); CREATININE 2.53 MG/DL (0.40-0.90); GLUCOSE 101 MG/DL (70-104); POTASSIUM 4.4 MMOL/L (3.5-5.1); SODIUM 143 MMOL/L (135-145); TOTAL CARBON DIOXIDE 24.6 MMOL/L (24-32); eGFR 18 ML/MIN
--- NOTE | 2021-05-21 06:47 | NUR ---
Problems reprioritized. Patient report given, questions answered & plan of care reviewed with Helena REGALADO.
[2021-05-21 06:55] LABS: PLATELET ESTIMATE DECREASED; TOTAL CELLS COUNTED 100
[2021-05-21 06:56] LABS: ANISOCYTOSIS 1+; POIKILOCYTOSIS FEW; POLYCHROMASIA FEW
--- NOTE | 2021-05-21 07:01 | NUR ---
Patient in room MED 314. I have received report from Alida REGALADO and had the opportunity to ask questions and assume patient care.
--- NOTE | 2021-05-21 07:32 | NUR ---
PAGER ID: [phone] MESSAGE: Shahla [phone] - re: Gertrude Montoya in 314. Critical Hgb 7.0 and Hct 20.7
[2021-05-21] MEDS: budesonide 0.5mg/2ml UD nebule IH SCH ×2 (07:41→20:01)
[2021-05-21] MEDS: K and/or MAG REPLACEMENT MC SCH ×2 (08:00→20:00)
[2021-05-21] MEDS: HYDROcodone/acetaminophen 10/325mg tab PO PRN (08:26)
[2021-05-21] MEDS: pantoprazole 40mg Tablet.DR PO SCH (09:15)
[2021-05-21] MEDS: furosemide 40mg tablet PO SCH ×3 (09:15→20:49)
[2021-05-21] MEDS: sertraline 50mg tablet PO SCH (09:15)
[2021-05-21] MEDS: aspirin 81mg, enteric-coated 1 TAB TABLET.DR PO SCH (09:15)
[2021-05-21] MEDS: carVEDilol 12.5mg tablet PO SCH ×2 (09:15→20:49)
[2021-05-21] MEDS: potassium Cl 20 mEq SR tablet PO SCH (09:15)
[2021-05-21] MEDS: losartan 50mg tablet PO SCH (09:15)
[2021-05-21] MEDS: PROPAFENONE HCL 225 MG PO SCH ×2 (09:38→21:46)
[2021-05-21] MEDS: gabapentin 300mg capsule PO PRN ×2 (09:39→20:50)
[2021-05-21] MEDS: docusate sod 100mg capsule PO SCH ×2 (09:39→20:48)
[2021-05-21] MEDS: atorvastatin 20mg tablet PO SCH (09:40)
[2021-05-21] MEDS: amLODIPine 5mg tablet PO SCH (09:40)
[2021-05-21] MEDS: heparin, porcine 5000 units/ml vial SQ SCH ×2 (09:44→20:49)
[2021-05-21 10:00] VITALS: BP 185/50
[2021-05-21] MEDS: normal saline 1000ml 1,000 ML IV SCH (10:30)
--- NOTE | 2021-05-21 13:07 | NUR ---
pt up to chair with min assist
[2021-05-21 14:00] VITALS: BP 198/57
[2021-05-21] MEDS: cloNIDine 0.1 mg tablet PO SCH ×2 (15:05→20:49)
--- NOTE | 2021-05-21 17:58 | NUR ---
Problems reprioritized. Patient report given, questions answered & plan of care reviewed with Alida REGALADO.
--- NOTE | 2021-05-21 18:43 | NUR ---
Patient in room MED 314. I have received report from BERNARDO REGALADO and had the opportunity to ask questions and assume patient care.
[2021-05-21 18:44] VITALS: BP 175/70
[2021-05-21] MEDS: traZODone 50mg tablet PO SCH (20:48)
[2021-05-21] MEDS ORDERED: cloNIDine 0.1 mg tablet PO SCH (21:00)
--- NOTE | 2021-05-21 21:47 | NUR ---
LASIX GIVEN AT 2048 (SCHEDULED FOR 1999) BUT REMAINED SHOWING RED, NOT GIVEN.
[2021-05-21 22:00] VITALS: BP 179/65
[2021-05-21] MEDS: hyDRALAzine 10mg tablet PO PRN (23:37)
[2021-05-22] VITALS (11 sets, daily range): BP systolic 163–198; BP diastolic 42–77
[2021-05-22] MEDS: normal saline 1000ml 1,000 ML IV SCH (00:40)
[2021-05-22] MEDS: albuterol 2.5 MG/3 ML nebule NEB SCH ×4 (03:25→20:06)
[2021-05-22] MEDS: HYDROcodone/acetaminophen 10/325mg tab PO PRN (04:01)
--- NOTE | 2021-05-22 06:40 | NUR ---
Problems reprioritized. Patient report given, questions answered & plan of care reviewed with ROGERS REGALADO.
--- NOTE | 2021-05-22 06:41 | NUR ---
Patient in room MED 314. I have received report from Alida REGALADO and had the opportunity to ask questions and assume patient care.
[2021-05-22 07:09] LABS: BASOPHILS % (AUTO) 0.5 % (0-1); EOSINOPHILS % (AUTO) 0.7 % (0-6); LYMPHOCYTES # (AUTO) 0.2 X10'3 (1.1-4.8); LYMPHOCYTES % (AUTO) 11.5 % (21-51); MEAN CORPUSCULAR HEMOGLOBIN 29.5 PG (27.0-31.0); MEAN CORPUSCULAR HGB CONC 34.1 g/dL (33.0-36.5); MEAN CORPUSCULAR VOLUME 86.6 FL (78-98); MEAN PLATELET VOLUME 8.3 FL (7.4-10.4); MONOCYTES # (AUTO) 0.4 X10'3 (0-0.9); MONOCYTES % (AUTO) 19.3 % (2-12); NEUTROPHILS # (AUTO) 1.3 X10'3 (1.8-7.7); PLATELET COUNT 123 X10'3 (140-440); RED BLOOD COUNT 2.35 X10'6 (4.20-5.60); RED CELL DISTRIBUTION WIDTH 15.8 % (11.5-14.5); WHITE BLOOD COUNT 1.9 X10'3 (4.5-11.0)
[2021-05-22 07:10] LABS: ALBUMIN 2.8 G/DL (3.4-5.0); ANION GAP 7 (8-16); BLOOD UREA NITROGEN 35 MG/DL (7-18); BUN/CREATININE RATIO 15.2 (6.6-38.0); CALCIUM 8.2 MG/DL (8.5-10.1); CHLORIDE 106 MMOL/L (99-107); GLUCOSE 106 MG/DL (70-104); SODIUM 140 MMOL/L (135-145); TOTAL CARBON DIOXIDE 27.3 MMOL/L (24-32); eGFR 21 ML/MIN
[2021-05-22 07:24] LABS: HEMATOCRIT 20.3 % (35.0-45.0); HEMOGLOBIN 6.9 g/dl (12.0-16.0)
--- NOTE | 2021-05-22 07:29 | NUR ---
PAGER ID: [phone] MESSAGE: [phone] FIORELLA INMAN PATIENT H/H IS 6.9/20.3 [place] [id number]
[2021-05-22 07:52] LABS: NUCLEATED RED BLOOD CELLS 1 /100WBC (0-0); TOTAL CELLS COUNTED 100
[2021-05-22 07:54] LABS: PLATELET ESTIMATE DECREASED; POLYCHROMASIA FEW; STOMATOCYTES FEW; TEAR DROP CELLS 1+
[2021-05-22] MEDS: K and/or MAG REPLACEMENT MC SCH ×2 (08:00→20:00)
[2021-05-22] MEDS: potassium Cl 20 mEq SR tablet PO SCH (08:00)
[2021-05-22] MEDS: docusate sod 100mg capsule PO SCH ×2 (08:00→20:50)
--- NOTE | 2021-05-22 09:10 | NUR ---
Initial: Pt admitted w/ weakness, pancytopenia secondary to lung CA and chemotherapy, neutropenia and CHF per EMR. Pt currently on Heart Healthy diet w/ mostly 100% intake of meals meeting needs, though recommend liberalizing to Regular diet at this time, lipid panel mostly WNL ~3months ago. LBM 05/20 receiving routine colace. No nutrition intervention implemented at this time, will continue to monitor. Recs: 1. Continue Heart Healthy diet as tolerated; consider liberalizing to Regular 2. Bowel care per rx 3. Scaled wts Addendum: 05/22/21 at [address] Amended: Links added.
[2021-05-22] MEDS: losartan 50mg tablet PO SCH (09:22)
[2021-05-22] MEDS: sertraline 50mg tablet PO SCH (09:22)
[2021-05-22] MEDS: carVEDilol 12.5mg tablet PO SCH ×2 (09:22→20:49)
[2021-05-22] MEDS: aspirin 81mg, enteric-coated 1 TAB TABLET.DR PO SCH (09:22)
[2021-05-22] MEDS: cloNIDine 0.1 mg tablet PO SCH ×3 (09:23→20:50)
[2021-05-22] MEDS: pantoprazole 40mg Tablet.DR PO SCH (09:23)
[2021-05-22] MEDS: atorvastatin 20mg tablet PO SCH (09:23)
[2021-05-22] MEDS: amLODIPine 5mg tablet PO SCH (09:23)
[2021-05-22] MEDS: furosemide 40mg tablet PO SCH ×2 (09:24→20:55)
[2021-05-22] MEDS: heparin, porcine 5000 units/ml vial SQ SCH ×2 (09:24→20:51)
[2021-05-22] MEDS: PROPAFENONE HCL 225 MG PO SCH ×2 (09:33→20:51)
--- NOTE | 2021-05-22 09:36 | NUR ---
PATIENT DAUGHTER IN AND STATED HER MOTHER HAS CHRONIC ANEMIA AND WILL BE DO FOR A PROCRIT SHOT. PATIENT TAKE PROCRIT Q2 WEEKS, PER DR GARCIA.
[2021-05-22] MEDS: gabapentin 300mg capsule PO PRN (09:48)
[2021-05-22] MEDS: budesonide 0.5mg/2ml UD nebule IH SCH ×2 (10:00→20:06)
[2021-05-22] MEDS ORDERED: EPOETIN ALFA-EPBX 20,000 UNIT/ML 1 ML MDV SQ ONE (10:35)
--- NOTE | 2021-05-22 10:40 | NUR ---
PAGER ID: [phone] MESSAGE: FIORELLA GOMES DAUGHTER REFUSING TO TAKE PATIENT HOME. AND GOING TO SIGN A MEDICARE FORM. DR. GARCIA DID ORDER THE PROCRIT SHOT. RAYSA YANEZ IS IN THE SBAR. ROGERS [phone]
--- NOTE | 2021-05-22 11:21 | NUR ---
SPOKE WITH DAUGHTER, EXPLAINING SHE NEEDED TO COME DOWN AND SIGN THE MEDICARE PAPER, CALL AND GET A CLAIM NUMBER. THE DAUGHTER HAD MORE QUESTIONS THAN I COULD ANSWER, GAVE THE PHONE CALL TO THE CHARGE NURSE.
[2021-05-22 11:29] LABS: OCCULT BLOOD STOOL NEGATIVE (Neg)
--- NOTE | 2021-05-22 18:25 | NUR ---
Problems reprioritized. Patient report given, questions answered & plan of care reviewed with NEVA REGALADO.
[2021-05-22] MEDS: traZODone 50mg tablet PO SCH (20:50)
[2021-05-22] MEDS: hyDRALAzine 10mg tablet PO PRN (23:35)
[2021-05-23] VITALS (7 sets, daily range): BP systolic 101–199; BP diastolic 54–75
[2021-05-23] MEDS: albuterol 2.5 MG/3 ML nebule NEB SCH ×4 (02:25→19:49)
[2021-05-23] MEDS: gabapentin 300mg capsule PO PRN (02:34)
[2021-05-23] MEDS: normal saline 1000ml 1,000 ML IV SCH (03:16)
--- NOTE | 2021-05-23 06:33 | NUR ---
Problems reprioritized. Patient report given, questions answered & plan of care reviewed with FABRICIO BURTON.
[2021-05-23 07:08] LABS: BASOPHILS % (AUTO) 0.6 % (0-1); EOSINOPHILS % (AUTO) 0.6 % (0-6); HEMATOCRIT 29.2 % (35.0-45.0); LYMPHOCYTES # (AUTO) 0.2 X10'3 (1.1-4.8); LYMPHOCYTES % (AUTO) 10.4 % (21-51); MEAN CORPUSCULAR HEMOGLOBIN 29.2 PG (27.0-31.0); MEAN CORPUSCULAR HGB CONC 34.1 g/dL (33.0-36.5); MEAN CORPUSCULAR VOLUME 85.7 FL (78-98); MEAN PLATELET VOLUME 7.9 FL (7.4-10.4); MONOCYTES # (AUTO) 0.5 X10'3 (0-0.9); NEUTROPHILS # (AUTO) 1.6 X10'3 (1.8-7.7); NEUTROPHILS % (AUTO) 66.4 % (42-75); PLATELET COUNT 147 X10'3 (140-440); RED BLOOD COUNT 3.41 X10'6 (4.20-5.60); RED CELL DISTRIBUTION WIDTH 15.1 % (11.5-14.5); WHITE BLOOD COUNT 2.4 X10'3 (4.5-11.0)
[2021-05-23 07:27] LABS: ALBUMIN 3.1 G/DL (3.4-5.0); ANION GAP 8 (8-16); BLOOD UREA NITROGEN 31 MG/DL (7-18); BUN/CREATININE RATIO 15.1 (6.6-38.0); CHLORIDE 103 MMOL/L (99-107); CREATININE 2.05 MG/DL (0.40-0.90); GLUCOSE 126 MG/DL (70-104); POTASSIUM 3.7 MMOL/L (3.5-5.1); SODIUM 141 MMOL/L (135-145); TOTAL CARBON DIOXIDE 30.3 MMOL/L (24-32); eGFR 23 ML/MIN
[2021-05-23] MEDS: sertraline 50mg tablet PO SCH (08:00)
[2021-05-23] MEDS: potassium Cl 20 mEq SR tablet PO SCH (08:00)
[2021-05-23] MEDS: furosemide 40mg tablet PO SCH ×2 (08:00→20:16)
[2021-05-23] MEDS: amLODIPine 5mg tablet PO SCH (08:00)
[2021-05-23] MEDS: losartan 50mg tablet PO SCH (08:00)
[2021-05-23] MEDS: atorvastatin 20mg tablet PO SCH (08:00)
[2021-05-23] MEDS: K and/or MAG REPLACEMENT MC SCH ×2 (08:00→20:00)
[2021-05-23] MEDS: aspirin 81mg, enteric-coated 1 TAB TABLET.DR PO SCH (08:00)
[2021-05-23] MEDS: pantoprazole 40mg Tablet.DR PO SCH (08:00)
[2021-05-23] MEDS: cloNIDine 0.1 mg tablet PO SCH ×3 (08:00→20:16)
[2021-05-23] MEDS: heparin, porcine 5000 units/ml vial SQ SCH ×2 (08:00→20:17)
[2021-05-23 08:20] LABS: NUCLEATED RED BLOOD CELLS 2 /100WBC (0-0); PLATELET ESTIMATE NORMAL; TOTAL CELLS COUNTED 100
[2021-05-23 08:21] LABS: POLYCHROMASIA FEW
[2021-05-23] MEDS: docusate sod 100mg capsule PO SCH ×2 (08:59→20:16)
[2021-05-23] MEDS: carVEDilol 12.5mg tablet PO SCH ×2 (08:59→20:16)
[2021-05-23] MEDS: HYDROcodone/acetaminophen 10/325mg tab PO PRN (09:30)
[2021-05-23] MEDS ORDERED: APIX5TAB3 PO (09:38)
[2021-05-23] MEDS ORDERED: hyDRALAzine tablet PO (09:39)
[2021-05-23] MEDS ORDERED: CLON0.1T2 PO (09:39)
[2021-05-23] MEDS: budesonide 0.5mg/2ml UD nebule IH SCH ×2 (09:42→19:49)
[2021-05-23] MEDS: PROPAFENONE HCL 225 MG PO SCH ×2 (11:30→20:15)
[2021-05-23] MEDS: traZODone 50mg tablet PO SCH (20:16)
[2021-05-23] MEDS: hyDRALAzine 10mg tablet PO PRN (23:33)
[2021-05-24] MEDS: HYDROcodone/acetaminophen 10/325mg tab PO PRN ×3 (01:55→21:12)
[2021-05-24 02:00] VITALS: BP 180/78
[2021-05-24] MEDS: albuterol 2.5 MG/3 ML nebule NEB SCH ×5 (02:37→20:15)
[2021-05-24 06:00] VITALS: BP 129/66
[2021-05-24] MEDS: docusate sod 100mg capsule PO SCH ×2 (08:00→20:00)
[2021-05-24] MEDS: K and/or MAG REPLACEMENT MC SCH ×2 (08:00→20:00)
[2021-05-24] MEDS: cloNIDine 0.1 mg tablet PO SCH ×3 (08:56→21:06)
[2021-05-24] MEDS: aspirin 81mg, enteric-coated 1 TAB TABLET.DR PO SCH (08:57)
[2021-05-24] MEDS: sertraline 50mg tablet PO SCH (08:58)
[2021-05-24] MEDS: potassium Cl 20 mEq SR tablet PO SCH (08:59)
[2021-05-24] MEDS: amLODIPine 5mg tablet PO SCH (09:00)
[2021-05-24] MEDS: pantoprazole 40mg Tablet.DR PO SCH (09:01)
[2021-05-24] MEDS: atorvastatin 20mg tablet PO SCH (09:01)
[2021-05-24] MEDS: losartan 50mg tablet PO SCH (09:02)
[2021-05-24] MEDS: furosemide 40mg tablet PO SCH ×2 (09:02→21:06)
[2021-05-24] MEDS: heparin, porcine 5000 units/ml vial SQ SCH ×2 (09:05→21:07)
[2021-05-24] MEDS: carVEDilol 12.5mg tablet PO SCH ×2 (09:23→21:06)
[2021-05-24 10:00] VITALS: BP 168/60
[2021-05-24] MEDS: PROPAFENONE HCL 225 MG PO SCH ×2 (11:27→21:11)
[2021-05-24 16:00] VITALS: BP 141/56
--- NOTE | 2021-05-24 16:39 | NUR ---
PT REQUESTING RT TREATMENT...RT PAGED
[2021-05-24] MEDS: budesonide 0.5mg/2ml UD nebule IH SCH (20:14)
[2021-05-24] MEDS: traZODone 50mg tablet PO SCH (21:06)
[2021-05-24 22:00] VITALS: BP 180/63
[2021-05-25] MEDS: albuterol 2.5 MG/3 ML nebule NEB SCH ×2 (02:22→08:59)
[2021-05-25] MEDS: normal saline 1000ml 1,000 ML IV SCH (03:16)
[2021-05-25 04:26] VITALS: BP 153/57
[2021-05-25 06:00] VITALS: BP 160/65
[2021-05-25] MEDS: K and/or MAG REPLACEMENT MC SCH (06:57)
[2021-05-25] MEDS: heparin, porcine 5000 units/ml vial SQ SCH (08:23)
[2021-05-25] MEDS: atorvastatin 20mg tablet PO SCH (08:24)
[2021-05-25] MEDS: docusate sod 100mg capsule PO SCH (08:25)
[2021-05-25] MEDS: sertraline 50mg tablet PO SCH (08:25)
[2021-05-25] MEDS: potassium Cl 20 mEq SR tablet PO SCH (08:25)
[2021-05-25] MEDS: losartan 50mg tablet PO SCH (08:25)
[2021-05-25] MEDS: pantoprazole 40mg Tablet.DR PO SCH (08:25)
[2021-05-25] MEDS: carVEDilol 12.5mg tablet PO SCH (08:26)
[2021-05-25] MEDS: HYDROcodone/acetaminophen 10/325mg tab PO PRN (08:26)
[2021-05-25] MEDS: furosemide 40mg tablet PO SCH (08:26)
[2021-05-25] MEDS: aspirin 81mg, enteric-coated 1 TAB TABLET.DR PO SCH (08:26)
[2021-05-25] MEDS: cloNIDine 0.1 mg tablet PO SCH (08:26)
[2021-05-25] MEDS: amLODIPine 5mg tablet PO SCH (08:27)
[2021-05-25] MEDS: PROPAFENONE HCL 225 MG PO SCH (08:27)
[2021-05-25] MEDS: budesonide 0.5mg/2ml UD nebule IH SCH (08:59)
[2021-05-25 09:45] VITALS: BP 208/83
[2021-05-25] MEDS: hyDRALAzine 10mg tablet PO PRN (09:45)
--- NOTE | 2021-05-25 09:49 | NUR ---
PATIENT TRIED TRANSFERRING WITH NURSING STAFF TO CHAIR FROM BED PER REQUEST, PATIENT SEEMED TO FAINT OR PASS OUT FOR SEVERAL SECONDS AND THEN CAME ABOUT. BP CHECKED 208/8O'S, CHECKED AGAIN ABOUT THE SAME, SHE STATES SHE HAS A HEADACHE/DIZZINESS/DIAPHORETIC AND SO HYDRALAZINE WAS GIVEN. WILL CONTINUE TO MONITOR.
[2021-05-25 10:00] VITALS: BP 150/56
[2021-05-25 10:16] VITALS: BP 160/65
== END 2021-05-25 11:15 | disposition home health service (06) | DRG 808 ==
LOC: ER 08:31 → ED HOLD 13:18 → MED 3N 17:00
PROVIDERS: ADMIT Family Medicine; ATTEND Family Medicine
PROC: 30233N1 Transfusion of Nonautologous Red Blood Cells into Peripheral Vein, Percutaneous Approach (ICD-10-PCS; principal; 2021-05-22)
DX: D61.810 Antineoplastic chemotherapy induced pancytopenia (principal); N17.0 Acute kidney failure with tubular necrosis; C34.90 Malignant neoplasm of unspecified part of unspecified bronchus or lung; I13.0 Hypertensive heart and chronic kidney disease with heart failure and stage 1 through stage 4 chronic kidney disease, or unspecified chronic kidney disease; I50.32 Chronic diastolic (congestive) heart failure; I69.351 Hemiplegia and hemiparesis following cerebral infarction affecting right dominant side; I48.0 Paroxysmal atrial fibrillation; N18.9 Chronic kidney disease, unspecified; G89.29 Other chronic pain; F32.A Depression, unspecified; W18.39XA Other fall on same level, initial encounter; K21.9 Gastro-esophageal reflux disease without esophagitis; F41.9 Anxiety disorder, unspecified; J44.9 Chronic obstructive pulmonary disease, unspecified; E78.5 Hyperlipidemia, unspecified; T45.1X5A Adverse effect of antineoplastic and immunosuppressive drugs, initial encounter; Z79.82 Long term (current) use of aspirin; Z80.52 Family history of malignant neoplasm of bladder; Z85.3 Personal history of malignant neoplasm of breast; Z79.01 Long term (current) use of anticoagulants; Z88.8 Allergy status to other drugs, medicaments and biological substances; Z80.51 Family history of malignant neoplasm of kidney; Y93.89 Activity, other specified; Y92.89 Other specified places as the place of occurrence of the external cause; Y99.8 Other external cause status
CPT/HCPCS: 36415; 36430; 70450; 71045; 73590; 73610; 73620; 80048; 80053; 81003; 82272; 83605; 83735; 84145; 85007; 85025; 86644; 86885; 86900; 86901; 86920; 86945; 87040; 87081; 93005; 94640; 94760; 96361; 96374; 97110; 97162; 97530; 99285; G0378; J1442; J1644; J2270; J2405; J7030; P9016; Q4081

== ENCOUNTER 2021-07-12 09:51 | Inpatient (IN) | payer MEDICARE, OTHER ==
[~2021-07-12] VITALS: Ht 172.7 cm; Wt 68.2 kg
[~2021-07-12 09:51] MED LIST changes: +ATOR40TA72 PO; +CLON0.1T2 PO; +FLUT1BLS13 PO; -IPRA3AMP31 INH; +ONDA-103 PO; +POTA-82 PO; +TRAZ-251 PO; +hyDRALAzine tablet PO
[2021-07-12] MEDS ORDERED: normal saline 1000ML IV soln IV ONE (10:05)
[2021-07-12 10:22] LABS: BASOPHILS % (AUTO) 0.1 % (0-1); EOSINOPHILS # (AUTO) 0.1 X10'3 (0-0.9); EOSINOPHILS % (AUTO) 0.6 % (0-6); HEMATOCRIT 29.6 % (35.0-45.0); HEMOGLOBIN 9.7 g/dl (12.0-16.0); LYMPHOCYTES # (AUTO) 0.3 X10'3 (1.1-4.8); LYMPHOCYTES % (AUTO) 3.4 % (21-51); MEAN CORPUSCULAR HEMOGLOBIN 30.3 PG (27.0-31.0); MEAN CORPUSCULAR HGB CONC 32.8 g/dL (33.0-36.5); MEAN CORPUSCULAR VOLUME 92.5 FL (78-98); MEAN PLATELET VOLUME 7.5 FL (7.4-10.4); MONOCYTES # (AUTO) 0.7 X10'3 (0-0.9); MONOCYTES % (AUTO) 8.2 % (2-12); NEUTROPHILS # (AUTO) 7.3 X10'3 (1.8-7.7); NEUTROPHILS % (AUTO) 87.7 % (42-75); PLATELET COUNT 131 X10'3 (140-440); RED CELL DISTRIBUTION WIDTH 20.1 % (11.5-14.5); WHITE BLOOD COUNT 8.4 X10'3 (4.5-11.0)
[2021-07-12 10:48] LABS: ALANINE AMINOTRANSFERASE 10 U/L (12-78); ALBUMIN 3.3 G/DL (3.4-5.0); ALBUMIN/GLOBULIN RATIO 0.9 (1.1-1.5); ALKALINE PHOSPHATASE 91 IU/L (46-116); ANION GAP 7 (8-16); ASPARTATE AMINO TRANSFERASE 32 U/L (10-37); BILIRUBIN,TOTAL 0.7 MG/DL (0.1-1.0); BLOOD UREA NITROGEN 34 MG/DL (7-18); BUN/CREATININE RATIO 12.5 (6.6-38.0); CALCIUM 8.4 MG/DL (8.5-10.1); CHLORIDE 108 MMOL/L (99-107); CREATININE 2.71 MG/DL (0.40-0.90); GLUCOSE 127 MG/DL (70-104); POTASSIUM 4.4 MMOL/L (3.5-5.1); SODIUM 144 MMOL/L (135-145); TOTAL CARBON DIOXIDE 28.8 MMOL/L (24-32); TOTAL PROTEIN 6.9 G/DL (6.4-8.2); eGFR 17 ML/MIN
[2021-07-12 10:50] LABS: ANISOCYTOSIS 3+; PLATELET ESTIMATE DECREASED
[2021-07-12 10:51] LABS: MAGNESIUM 1.9 MG/DL (1.5-2.4)
[2021-07-12 10:52] LABS: ELLIPTOCYTES FEW; MICROCYTOSIS 1+; TEAR DROP CELLS FEW
[2021-07-12 11:22] LABS: CLARITY,URINE SLIGHTLY CLOUDY (Clear); GLUCOSE, URINE NEGATIVE (Neg); KETONES,URINE NEGATIVE (Neg); LEUKOCYTE ESTERASE ,URINE NEGATIVE (Neg); NITRITES, URINE NEGATIVE (Neg); OCCULT BLOOD,URINE NEGATIVE (Neg); PROTEIN,URINE NEGATIVE (Neg); UROBILINOGEN,URINE 0.2 E.U/dL (0.2-1.0)
[2021-07-12 11:32] LABS: COLOR,URINE STRAW (Yellow); UA COLLECTION TYPE STRAIGHT CATH
[2021-07-12 11:36] LABS: SQUAMOUS EPITHELIAL CELL,UR MANY /LPF (FEW)
[2021-07-12 11:38] LABS: BACTERIA,URINE FEW /HPF (Neg); FINE GRANULAR CAST 0-3 /LPF (NEGATIVE); HYALINE CASTS 0-3 /LPF (NEGATIVE); RBC,URINE 0-2 /HPF (0-2); WBC,URINE 0-4 /HPF (0-4)
--- NOTE | 2021-07-12 12:00 | NUR ---
Lis placed to suction.
[2021-07-12] MEDS ORDERED: ISOS30TA84 PO (13:47)
[2021-07-12] MEDS ORDERED: APIX5TAB3 PO (13:47)
[2021-07-12] MEDS ORDERED: morphine 2 MG/ML inj. syringe IV PRN (13:55)
[2021-07-12] MEDS ORDERED: mag hydrox/Alum hydrox/simeth 30ml oral suspension PO PRN (13:55)
[2021-07-12] MEDS ORDERED: magnesium hydroxide 30ml (MOM) UD suspension PO PRN (13:55)
[2021-07-12] MEDS ORDERED: HYDROcodone/acetaminophen 5mg/325mg tablet PO PRN (13:55)
[2021-07-12] MEDS ORDERED: acetaminophen 325mg tablet PO PRN ×2 (13:55)
--- NOTE | 2021-07-12 14:00 | NUR ---
Patient assisted to position change in bed; replaced Purewick; two warm blankets and pillow given.
[2021-07-12] MEDS ORDERED: albuterol 2.5 MG/3 ML nebule NEB PRN (14:05)
--- NOTE | 2021-07-12 14:18 | NUR ---
Patient given water to drink and assisted to sitting position.
--- NOTE | 2021-07-12 15:00 | NUR ---
Patient given two juice boxes to drink.
--- NOTE | 2021-07-12 15:27 | NUR ---
Patient cleaned of urinary incontinence; bedding and gown changed. New Purewick placed to suction.
--- NOTE | 2021-07-12 15:34 | NUR ---
Report called to FABRICIO Giang on 4th floor.
[2021-07-12] MEDS: albuterol 2.5 MG/3 ML nebule NEB SCH ×2 (16:48→20:36)
[2021-07-12 18:00] VITALS: BP 154/65
--- NOTE | 2021-07-12 18:25 | NUR ---
Problems reprioritized. Patient report given, questions answered & plan of care reviewed with FABRICIO Montejo.
[2021-07-12] MEDS: docusate sod 100mg capsule PO SCH (19:52)
[2021-07-12] MEDS: traZODone 50mg tablet PO SCH (19:52)
[2021-07-12] MEDS: HYDROcodone/acetaminophen 10/325mg tab PO PRN (19:52)
[2021-07-12] MEDS: PROPAFENONE HCL PO SCH (19:53)
[2021-07-12] MEDS: apixaban 5mg tablet PO SCH (19:53)
[2021-07-12] MEDS: carVEDilol 12.5mg tablet PO SCH (19:53)
[2021-07-12] MEDS: budesonide 0.5mg/2ml UD nebule IH SCH ×2 (20:36→21:00)
[2021-07-12 22:00] VITALS: BP 150/48
[2021-07-13] VITALS (7 sets, daily range): BP systolic 117–177; BP diastolic 38–78
[2021-07-13] MEDS: albuterol 2.5 MG/3 ML nebule NEB SCH ×5 (03:00→19:40)
--- NOTE | 2021-07-13 04:42 | NUR ---
PCT stated that patient complained of shortness of breath, feeling anxious and having panic attack and chest pain and was asking for breathing treatment. Advised PCT to notify daycare manager as this RN was with another patient at that moment. Soon after, rushed to patient's room, RT at bedside, giving RT treatment. Upon assessing further, patient stated "I just couldn't breathe, so it felt like I was having chest pain but its not that bad, I just needed to breathe better, and I'm better now with the breathing treatment." Patient now saying its just her lower back that hurts; will administer PRN pain medication as per MD order and will continue to monitor.
[2021-07-13] MEDS: HYDROcodone/acetaminophen 10/325mg tab PO PRN (05:34)
--- NOTE | 2021-07-13 06:24 | NUR ---
Problems reprioritized. Patient report given, questions answered & plan of care reviewed with FABRICIO Hurley.
[2021-07-13 06:37] LABS: BASOPHILS % (AUTO) 0.5 % (0-1); EOSINOPHILS # (AUTO) 0.2 X10'3 (0-0.9); EOSINOPHILS % (AUTO) 3.6 % (0-6); HEMATOCRIT 27.8 % (35.0-45.0); HEMOGLOBIN 9.1 g/dl (12.0-16.0); LYMPHOCYTES # (AUTO) 0.3 X10'3 (1.1-4.8); LYMPHOCYTES % (AUTO) 6.4 % (21-51); MEAN CORPUSCULAR HEMOGLOBIN 30.2 PG (27.0-31.0); MEAN CORPUSCULAR HGB CONC 32.8 g/dL (33.0-36.5); MEAN CORPUSCULAR VOLUME 92.1 FL (78-98); MEAN PLATELET VOLUME 7.7 FL (7.4-10.4); MONOCYTES # (AUTO) 0.6 X10'3 (0-0.9); MONOCYTES % (AUTO) 10.6 % (2-12); NEUTROPHILS # (AUTO) 4.3 X10'3 (1.8-7.7); NEUTROPHILS % (AUTO) 78.9 % (42-75); PLATELET COUNT 124 X10'3 (140-440); RED BLOOD COUNT 3.02 X10'6 (4.20-5.60); RED CELL DISTRIBUTION WIDTH 19.9 % (11.5-14.5); WHITE BLOOD COUNT 5.4 X10'3 (4.5-11.0)
[2021-07-13 07:02] LABS: ALBUMIN 3.1 G/DL (3.4-5.0); ANION GAP 7 (8-16); BLOOD UREA NITROGEN 34 MG/DL (7-18); BUN/CREATININE RATIO 13.9 (6.6-38.0); CALCIUM 8.7 MG/DL (8.5-10.1); CHLORIDE 107 MMOL/L (99-107); CREATININE 2.45 MG/DL (0.40-0.90); GLUCOSE 107 MG/DL (70-104); POTASSIUM 4.2 MMOL/L (3.5-5.1); SODIUM 141 MMOL/L (135-145); TOTAL CARBON DIOXIDE 26.9 MMOL/L (24-32); eGFR 19 ML/MIN
[2021-07-13] MEDS: losartan 50mg tablet PO SCH (07:22)
[2021-07-13] MEDS: carVEDilol 12.5mg tablet PO SCH ×2 (07:23→19:54)
[2021-07-13] MEDS: potassium Cl 20 mEq SR tablet PO SCH (07:23)
[2021-07-13] MEDS: isosorbide mononitrate 30mg tab.SR.24H PO SCH (07:23)
[2021-07-13] MEDS: docusate sod 100mg capsule PO SCH ×2 (07:23→19:52)
[2021-07-13] MEDS: amLODIPine 5mg tablet PO SCH (07:23)
[2021-07-13] MEDS: pantoprazole 40mg Tablet.DR PO SCH (07:23)
[2021-07-13] MEDS: apixaban 5mg tablet PO SCH ×2 (07:23→19:54)
[2021-07-13] MEDS: atorvastatin 20mg tablet PO SCH (07:23)
[2021-07-13] MEDS: PROPAFENONE HCL PO SCH ×3 (07:32→19:56)
[2021-07-13] MEDS ORDERED: furosemide 40mg tablet PO SCH (08:00)
[2021-07-13] MEDS ORDERED: furosemide 20 MG/2 ML vial IV SCH (08:00)
[2021-07-13] MEDS: sertraline 50mg tablet PO SCH (08:22)
[2021-07-13] MEDS ORDERED: diphenhydrAMINE 25mg capsule PO PRN (08:25)
[2021-07-13] MEDS: morphine 2 MG/ML inj. syringe IV PRN (08:31)
[2021-07-13] MEDS: budesonide 0.5mg/2ml UD nebule IH SCH ×2 (08:42→19:40)
--- NOTE | 2021-07-13 18:10 | NUR ---
Patient in room ORTHO 4020A. I have received report from FABRICIO Hurley and had the opportunity to ask questions and assume patient care.
--- NOTE | 2021-07-13 18:23 | NUR ---
Problems reprioritized. Patient report given, questions answered & plan of care reviewed with FABRICIO Henriquez.
[2021-07-13] MEDS: traZODone 50mg tablet PO SCH (19:55)
[2021-07-14] MEDS: albuterol 2.5 MG/3 ML nebule NEB SCH ×4 (03:30→20:12)
--- NOTE | 2021-07-14 06:06 | NUR ---
Problems reprioritized. Patient report given, questions answered & plan of care reviewed with FABRICIO Hurley.
[2021-07-14 06:45] LABS: BASOPHILS % (AUTO) 0.5 % (0-1); EOSINOPHILS # (AUTO) 0.2 X10'3 (0-0.9); HEMATOCRIT 26.9 % (35.0-45.0); HEMOGLOBIN 8.9 g/dl (12.0-16.0); LYMPHOCYTES # (AUTO) 0.4 X10'3 (1.1-4.8); LYMPHOCYTES % (AUTO) 8.6 % (21-51); MEAN CORPUSCULAR HEMOGLOBIN 30.5 PG (27.0-31.0); MEAN CORPUSCULAR HGB CONC 33.1 g/dL (33.0-36.5); MEAN CORPUSCULAR VOLUME 92.2 FL (78-98); MEAN PLATELET VOLUME 7.6 FL (7.4-10.4); MONOCYTES # (AUTO) 0.6 X10'3 (0-0.9); MONOCYTES % (AUTO) 13.5 % (2-12); NEUTROPHILS % (AUTO) 73.4 % (42-75); PLATELET COUNT 125 X10'3 (140-440); RED BLOOD COUNT 2.91 X10'6 (4.20-5.60); RED CELL DISTRIBUTION WIDTH 19.3 % (11.5-14.5); WHITE BLOOD COUNT 4.1 X10'3 (4.5-11.0)
[2021-07-14 06:53] VITALS: BP 194/91
--- NOTE | 2021-07-14 06:55 | NUR ---
Patient found out of bed by herself by closet. Patient states she was looking for clothes and she didn't want people to think she was stealing. Patient reoriented and escorted back to bed with SBA.
[2021-07-14 06:56] LABS: ALBUMIN 3.1 G/DL (3.4-5.0); ANION GAP 10 (8-16); BLOOD UREA NITROGEN 36 MG/DL (7-18); BUN/CREATININE RATIO 15.2 (6.6-38.0); CALCIUM 8.7 MG/DL (8.5-10.1); CHLORIDE 105 MMOL/L (99-107); CREATININE 2.37 MG/DL (0.40-0.90); GLUCOSE 106 MG/DL (70-104); POTASSIUM 3.9 MMOL/L (3.5-5.1); SODIUM 141 MMOL/L (135-145); TOTAL CARBON DIOXIDE 26.1 MMOL/L (24-32); eGFR 20 ML/MIN
[2021-07-14] MEDS: docusate sod 100mg capsule PO SCH ×2 (07:16→19:21)
[2021-07-14] MEDS: carVEDilol 12.5mg tablet PO SCH ×2 (07:17→19:20)
[2021-07-14] MEDS: sertraline 50mg tablet PO SCH (07:18)
[2021-07-14] MEDS: potassium Cl 20 mEq SR tablet PO SCH (07:18)
[2021-07-14] MEDS: pantoprazole 40mg Tablet.DR PO SCH (07:18)
[2021-07-14] MEDS: atorvastatin 20mg tablet PO SCH (07:18)
[2021-07-14] MEDS: losartan 50mg tablet PO SCH (07:18)
[2021-07-14] MEDS: apixaban 5mg tablet PO SCH ×2 (07:19→19:20)
[2021-07-14] MEDS: PROPAFENONE HCL PO SCH ×2 (07:19→19:21)
[2021-07-14] MEDS: amLODIPine 5mg tablet PO SCH (07:19)
[2021-07-14] MEDS: isosorbide mononitrate 30mg tab.SR.24H PO SCH (07:19)
[2021-07-14] MEDS: budesonide 0.5mg/2ml UD nebule IH SCH ×2 (08:06→20:12)
[2021-07-14] MEDS: HYDROcodone/acetaminophen 10/325mg tab PO PRN ×3 (08:37→19:19)
[2021-07-14 09:50] VITALS: BP 143/65
[2021-07-14 18:00] VITALS: BP 166/83
--- NOTE | 2021-07-14 18:24 | NUR ---
Problems reprioritized. Patient report given, questions answered & plan of care reviewed with FABRICIO Avila.
--- NOTE | 2021-07-14 18:30 | NUR ---
Patient in room ORTHO 4020. I have received report from JOSE MIGUEL REGALADO and had the opportunity to ask questions and assume patient care.
[2021-07-14] MEDS: traZODone 50mg tablet PO SCH (19:20)
[2021-07-14 22:00] VITALS: BP 145/68
[2021-07-15] MEDS: albuterol 2.5 MG/3 ML nebule NEB SCH ×4 (03:00→20:02)
--- NOTE | 2021-07-15 06:18 | NUR ---
Problems reprioritized. Patient report given, questions answered & plan of care reviewed with JOSE MIGUEL REGALADO.
--- NOTE | 2021-07-15 06:29 | NUR ---
Patient in room ORTHO 4020. I have received report from FABRICIO Avila and had the opportunity to ask questions and assume patient care.
[2021-07-15 06:38] VITALS: BP 149/67
--- NOTE | 2021-07-15 07:53 | NUR ---
PAGER ID: [phone] MESSAGE: [id number]- Sameer,- Juvencio- bloody nose. she is concerned. has Susan. do you want me to hold? Humidifier placed for oxygen. - Mei Francisco0 Addendum: 07/15/21 at 0841 by Mei Pablo RN Received call back from Dr. Fournier and mike to administer Elijose danielis as patient has Afib.
[2021-07-15] MEDS: sertraline 50mg tablet PO SCH (07:54)
[2021-07-15] MEDS: isosorbide mononitrate 30mg tab.SR.24H PO SCH (07:54)
[2021-07-15] MEDS: carVEDilol 12.5mg tablet PO SCH ×2 (07:54→19:09)
[2021-07-15] MEDS: atorvastatin 20mg tablet PO SCH (07:54)
[2021-07-15] MEDS: HYDROcodone/acetaminophen 10/325mg tab PO PRN ×3 (07:54→19:09)
[2021-07-15] MEDS: docusate sod 100mg capsule PO SCH ×2 (07:54→19:10)
[2021-07-15] MEDS: losartan 50mg tablet PO SCH (07:54)
[2021-07-15] MEDS: pantoprazole 40mg Tablet.DR PO SCH (07:54)
[2021-07-15] MEDS: amLODIPine 5mg tablet PO SCH (07:55)
[2021-07-15] MEDS: potassium Cl 20 mEq SR tablet PO SCH (07:55)
[2021-07-15] MEDS: PROPAFENONE HCL PO SCH ×2 (07:57→19:10)
[2021-07-15] MEDS: ondansetron/PF 4mg/2ml inj IV PRN (08:09)
[2021-07-15] MEDS: apixaban 5mg tablet PO SCH ×2 (08:21→19:09)
--- NOTE | 2021-07-15 08:40 | NUR ---
PAGER ID: [phone] MESSAGE: [id number]- Juvencio Estrella- bloody nose was just left nostril and now is bleeding from both nostrils. educated to pinch nose and small ice pack placed on nose. Thank you- Mei [phone]
--- NOTE | 2021-07-15 08:47 | NUR ---
Patient refused to have blood drawn by lab this morning. x3 lab techs attempted, patient was educated reason for lab draw but patient continued to refuse. Dr. Irlanda person.
--- NOTE | 2021-07-15 08:49 | NUR ---
Patient has tissue in both nostrils. Appears to be resting comfortably at this time. Patient's daughter is at bedside. Will continue to monitor.
[2021-07-15] MEDS: budesonide 0.5mg/2ml UD nebule IH SCH ×2 (09:00→20:02)
[2021-07-15 11:08] VITALS: BP 161/66
[2021-07-15 15:27] VITALS: BP 165/74
[2021-07-15 18:00] VITALS: BP_SYST 142; BP_SYST 166; BP_DIAS 72; BP_DIAS 79
--- NOTE | 2021-07-15 18:19 | NUR ---
Problems reprioritized. Patient report given, questions answered & plan of care reviewed with FABRICIO Avila.
--- NOTE | 2021-07-15 18:28 | NUR ---
Problems reprioritized. Patient report given, questions answered & plan of care reviewed with FABRICIO Avila.
--- NOTE | 2021-07-15 18:30 | NUR ---
Patient in room ORTHO 4020. I have received report from JOSE MIGUEL REGALADO and had the opportunity to ask questions and assume patient care.
[2021-07-15] MEDS: traZODone 50mg tablet PO SCH (19:10)
[2021-07-15 22:00] VITALS: BP 167/71
[2021-07-16] MEDS: albuterol 2.5 MG/3 ML nebule NEB SCH ×4 (03:00→20:48)
[2021-07-16 06:11] LABS: BASOPHILS % (AUTO) 0.5 % (0-1); EOSINOPHILS # (AUTO) 0.2 X10'3 (0-0.9); EOSINOPHILS % (AUTO) 5.6 % (0-6); HEMATOCRIT 30.5 % (35.0-45.0); LYMPHOCYTES # (AUTO) 0.4 X10'3 (1.1-4.8); LYMPHOCYTES % (AUTO) 9.3 % (21-51); MEAN CORPUSCULAR HEMOGLOBIN 29.8 PG (27.0-31.0); MEAN CORPUSCULAR HGB CONC 32.8 g/dL (33.0-36.5); MEAN CORPUSCULAR VOLUME 90.9 FL (78-98); MEAN PLATELET VOLUME 7.8 FL (7.4-10.4); MONOCYTES # (AUTO) 0.5 X10'3 (0-0.9); MONOCYTES % (AUTO) 12.2 % (2-12); NEUTROPHILS # (AUTO) 2.9 X10'3 (1.8-7.7); NEUTROPHILS % (AUTO) 72.4 % (42-75); PLATELET COUNT 157 X10'3 (140-440); RED BLOOD COUNT 3.36 X10'6 (4.20-5.60); RED CELL DISTRIBUTION WIDTH 19.2 % (11.5-14.5)
--- NOTE | 2021-07-16 06:21 | NUR ---
Problems reprioritized. Patient report given, questions answered & plan of care reviewed with ARMIN RN.
[2021-07-16 06:26] LABS: ALBUMIN 3.4 G/DL (3.4-5.0); ANION GAP 10 (8-16); BLOOD UREA NITROGEN 34 MG/DL (7-18); BUN/CREATININE RATIO 15.7 (6.6-38.0); CALCIUM 9.5 MG/DL (8.5-10.1); CHLORIDE 105 MMOL/L (99-107); CREATININE 2.17 MG/DL (0.40-0.90); GLUCOSE 89 MG/DL (70-104); POTASSIUM 4.7 MMOL/L (3.5-5.1); SODIUM 142 MMOL/L (135-145); TOTAL CARBON DIOXIDE 27.1 MMOL/L (24-32); eGFR 22 ML/MIN
[2021-07-16 06:40] VITALS: BP 162/66
--- NOTE | 2021-07-16 06:50 | NUR ---
Patient in room ORTHO 4020. I have received report from Austin REGALADO and had the opportunity to ask questions and assume patient care.
[2021-07-16] MEDS: docusate sod 100mg capsule PO SCH ×2 (08:19→19:52)
[2021-07-16] MEDS: budesonide 0.5mg/2ml UD nebule IH SCH ×2 (08:21→20:48)
[2021-07-16] MEDS: carVEDilol 12.5mg tablet PO SCH ×2 (08:21→19:52)
[2021-07-16] MEDS: atorvastatin 20mg tablet PO SCH (08:22)
[2021-07-16] MEDS: amLODIPine 5mg tablet PO SCH (08:22)
[2021-07-16] MEDS: pantoprazole 40mg Tablet.DR PO SCH (08:22)
[2021-07-16] MEDS: PROPAFENONE HCL PO SCH ×2 (08:23→20:17)
[2021-07-16] MEDS: apixaban 5mg tablet PO SCH ×2 (08:23→19:52)
[2021-07-16] MEDS: isosorbide mononitrate 30mg tab.SR.24H PO SCH (08:24)
[2021-07-16] MEDS: potassium Cl 20 mEq SR tablet PO SCH (08:24)
[2021-07-16] MEDS: losartan 50mg tablet PO SCH (08:33)
[2021-07-16] MEDS: HYDROcodone/acetaminophen 10/325mg tab PO PRN ×3 (08:34→17:25)
[2021-07-16] MEDS: sertraline 50mg tablet PO SCH (08:37)
[2021-07-16 10:00] VITALS: BP 146/62
[2021-07-16 14:00] VITALS: BP 188/49
[2021-07-16 18:00] VITALS: BP 172/73
[2021-07-16] MEDS ORDERED: hydrALAZINE 20mg/ml inj. IV PRN (18:20)
--- NOTE | 2021-07-16 18:29 | NUR ---
Problems reprioritized. Patient report given, questions answered & plan of care reviewed with MARIELLE REGALADO.
--- NOTE | 2021-07-16 18:37 | NUR ---
Patient in room ORTHO 4020. I have received report from ARMIN REGALADO and had the opportunity to ask questions and assume patient care.
[2021-07-16] MEDS: traZODone 50mg tablet PO SCH (19:52)
[2021-07-16 22:00] VITALS: BP 186/69
[2021-07-17 02:00] VITALS: BP 157/57
[2021-07-17] MEDS: HYDROcodone/acetaminophen 10/325mg tab PO PRN ×4 (02:33→21:11)
[2021-07-17] MEDS: albuterol 2.5 MG/3 ML nebule NEB SCH ×4 (02:57→19:48)
[2021-07-17 05:33] LABS: BASOPHILS % (AUTO) 0.1 % (0-1); EOSINOPHILS # (AUTO) 0.1 X10'3 (0-0.9); EOSINOPHILS % (AUTO) 2.1 % (0-6); HEMATOCRIT 27.6 % (35.0-45.0); HEMOGLOBIN 9.1 g/dl (12.0-16.0); LYMPHOCYTES # (AUTO) 0.2 X10'3 (1.1-4.8); LYMPHOCYTES % (AUTO) 3.7 % (21-51); MEAN CORPUSCULAR HEMOGLOBIN 30.2 PG (27.0-31.0); MEAN CORPUSCULAR HGB CONC 33.1 g/dL (33.0-36.5); MEAN CORPUSCULAR VOLUME 91.3 FL (78-98); MEAN PLATELET VOLUME 7.6 FL (7.4-10.4); MONOCYTES # (AUTO) 0.6 X10'3 (0-0.9); MONOCYTES % (AUTO) 11.9 % (2-12); NEUTROPHILS # (AUTO) 4.4 X10'3 (1.8-7.7); NEUTROPHILS % (AUTO) 82.2 % (42-75); PLATELET COUNT 142 X10'3 (140-440); RED BLOOD COUNT 3.02 X10'6 (4.20-5.60); RED CELL DISTRIBUTION WIDTH 19.2 % (11.5-14.5); WHITE BLOOD COUNT 5.3 X10'3 (4.5-11.0)
[2021-07-17 05:44] LABS: ALBUMIN 3.1 G/DL (3.4-5.0); ANION GAP 11 (8-16); BLOOD UREA NITROGEN 33 MG/DL (7-18); BUN/CREATININE RATIO 16.3 (6.6-38.0); CALCIUM 8.8 MG/DL (8.5-10.1); CHLORIDE 105 MMOL/L (99-107); CREATININE 2.02 MG/DL (0.40-0.90); GLUCOSE 100 MG/DL (70-104); POTASSIUM 4.9 MMOL/L (3.5-5.1); SODIUM 140 MMOL/L (135-145); TOTAL CARBON DIOXIDE 24.2 MMOL/L (24-32); eGFR 24 ML/MIN
--- NOTE | 2021-07-17 06:20 | NUR ---
Problems reprioritized. Patient report given, questions answered & plan of care reviewed with ARMIN RN.
[2021-07-17] MEDS: apixaban 5mg tablet PO SCH ×2 (06:35→21:09)
[2021-07-17] MEDS: sertraline 50mg tablet PO SCH (06:36)
[2021-07-17] MEDS: docusate sod 100mg capsule PO SCH ×2 (06:36→21:09)
[2021-07-17] MEDS: isosorbide mononitrate 30mg tab.SR.24H PO SCH (06:36)
[2021-07-17] MEDS: potassium Cl 20 mEq SR tablet PO SCH (06:36)
[2021-07-17] MEDS: losartan 50mg tablet PO SCH (06:37)
[2021-07-17] MEDS: atorvastatin 20mg tablet PO SCH (06:37)
[2021-07-17] MEDS: carVEDilol 12.5mg tablet PO SCH ×2 (06:38→21:09)
[2021-07-17] MEDS: amLODIPine 5mg tablet PO SCH (06:38)
[2021-07-17] MEDS: PROPAFENONE HCL PO SCH ×2 (06:39→20:00)
--- NOTE | 2021-07-17 06:49 | NUR ---
Patient in room ORTHO 4020. I have received report from MARIELLE REGALADO and had the opportunity to ask questions and assume patient care.
[2021-07-17 07:00] VITALS: BP 143/55
[2021-07-17 07:46] LABS: PLATELET ESTIMATE NORMAL
[2021-07-17 07:47] LABS: ANISOCYTOSIS 2+; POLYCHROMASIA 1+
[2021-07-17 07:48] LABS: ELLIPTOCYTES 1+; TEAR DROP CELLS FEW
[2021-07-17] MEDS: budesonide 0.5mg/2ml UD nebule IH SCH ×2 (08:13→19:48)
[2021-07-17] MEDS: pantoprazole 40mg Tablet.DR PO SCH (08:37)
--- NOTE | 2021-07-17 08:52 | NUR ---
Initial: pt admitted w/ generalize weakness per EMR. Currently on Heart Healthy diet w/ low PO intake, mostly 25% of meals not meeting needs, documented to be receiving minimal assistance w/ meals. Recommend liberalizing to Regular diet given poor PO intake. Also recommend Ensure Enlive TID to assist w/ meeting nutrient needs. LBM 5/7 receiving routine colace. Will continue to monitor. Recs 1. Liberalize to Regular diet, chop meats 2. Ensure Enlive TID; pending MD verification 3. Bowel care per rx 4. Scaled wts this admit Addendum: 07/17/21 at [address] Amended: Links added.
[2021-07-17 10:38] VITALS: BP 118/51
[2021-07-17] MEDS ORDERED: lactose-reduced food (Ensure Enlive) - 237ml bottle PO SCH (13:00)
[2021-07-17] MEDS: ondansetron/PF 4mg/2ml inj IV PRN (13:07)
[2021-07-17 15:50] VITALS: BP 164/80
--- NOTE | 2021-07-17 18:10 | NUR ---
Problems reprioritized. Patient report given, questions answered & plan of care reviewed with Samuel REGALADO.
[2021-07-17 19:00] VITALS: BP 150/64
[2021-07-17] MEDS: traZODone 50mg tablet PO SCH (21:09)
[2021-07-17] MEDS: morphine 2 MG/ML inj. syringe IV PRN (21:20)
[2021-07-17 22:00] VITALS: BP 164/71
[2021-07-18] MEDS: albuterol 2.5 MG/3 ML nebule NEB SCH ×3 (04:00→09:35)
--- NOTE | 2021-07-18 04:07 | NUR ---
Pt awake, and states pain is gone. She appears quite comfortable.
[2021-07-18] MEDS: HYDROcodone/acetaminophen 10/325mg tab PO PRN (05:48)
[2021-07-18 06:00] VITALS: BP 192/73
--- NOTE | 2021-07-18 06:19 | NUR ---
Problems reprioritized. Patient report given, questions answered & plan of care reviewed with Kennedy. Addendum: 07/18/21 at 0620 by Leonard Cordoba RN Amended: Links added.
[2021-07-18] MEDS: pantoprazole 40mg Tablet.DR PO SCH (07:40)
[2021-07-18] MEDS: sertraline 50mg tablet PO SCH (07:48)
[2021-07-18] MEDS: losartan 50mg tablet PO SCH (07:48)
[2021-07-18] MEDS: docusate sod 100mg capsule PO SCH (07:48)
[2021-07-18] MEDS: isosorbide mononitrate 30mg tab.SR.24H PO SCH (07:49)
[2021-07-18] MEDS: atorvastatin 20mg tablet PO SCH (07:49)
[2021-07-18] MEDS: potassium Cl 20 mEq SR tablet PO SCH (07:49)
[2021-07-18] MEDS: carVEDilol 12.5mg tablet PO SCH (07:49)
[2021-07-18] MEDS: apixaban 5mg tablet PO SCH (07:49)
[2021-07-18 07:50] VITALS: BP_SYST 192
[2021-07-18] MEDS: amLODIPine 5mg tablet PO SCH (07:50)
[2021-07-18] MEDS: budesonide 0.5mg/2ml UD nebule IH SCH ×2 (09:00→09:36)
[2021-07-18 09:42] LABS: BASOPHILS % (AUTO) 0.3 % (0-1); EOSINOPHILS # (AUTO) 0.1 X10'3 (0-0.9); EOSINOPHILS % (AUTO) 2.2 % (0-6); HEMOGLOBIN 8.7 g/dl (12.0-16.0); LYMPHOCYTES # (AUTO) 0.3 X10'3 (1.1-4.8); LYMPHOCYTES % (AUTO) 5.1 % (21-51); MEAN CORPUSCULAR HEMOGLOBIN 29.7 PG (27.0-31.0); MEAN CORPUSCULAR HGB CONC 32.1 g/dL (33.0-36.5); MEAN CORPUSCULAR VOLUME 92.5 FL (78-98); MEAN PLATELET VOLUME 8.4 FL (7.4-10.4); MONOCYTES # (AUTO) 0.7 X10'3 (0-0.9); MONOCYTES % (AUTO) 13.4 % (2-12); NEUTROPHILS # (AUTO) 4.3 X10'3 (1.8-7.7); PLATELET COUNT 160 X10'3 (140-440); RED BLOOD COUNT 2.92 X10'6 (4.20-5.60); RED CELL DISTRIBUTION WIDTH 19.3 % (11.5-14.5); WHITE BLOOD COUNT 5.5 X10'3 (4.5-11.0)
[2021-07-18 10:05] LABS: ANISOCYTOSIS 2+; ELLIPTOCYTES FEW; PLATELET ESTIMATE NORMAL; TEAR DROP CELLS FEW
[2021-07-18 10:06] LABS: BURR CELLS FEW
[2021-07-18] MEDS: PROPAFENONE HCL PO SCH (10:59)
[2021-07-18] MEDS: ondansetron/PF 4mg/2ml inj IV PRN (11:02)
--- NOTE | 2021-07-18 12:15 | NUR ---
I just came back from lunch when I saw the charge nurse Priya already finished giving the discharge instructions to the patient and her daughter at bedside. Peripheral IV catheter has been removed already. Per daughter, she forgot to bring the oxygen from home. Charge nurse Priya asked the daughter to go home to get the oxygen and just come back to the hospital to car pick up driver the patient. Daughter said "we're just about 10 minutes away from here!" Per daughter, patient is fine without oxygen even at home. Patient breathing normally without shortness of breath when she was off from oxygen this am.
[2021-07-18 12:58] LABS: ALBUMIN 3.1 G/DL (3.4-5.0); ANION GAP 11 (8-16); BLOOD UREA NITROGEN 30 MG/DL (7-18); BUN/CREATININE RATIO 14.4 (6.6-38.0); CALCIUM 8.7 MG/DL (8.5-10.1); CHLORIDE 106 MMOL/L (99-107); CREATININE 2.08 MG/DL (0.40-0.90); GLUCOSE 111 MG/DL (70-104); SODIUM 140 MMOL/L (135-145); eGFR 23 ML/MIN
== END 2021-07-18 12:10 | disposition home or self-care (01) | DRG 640 ==
LOC: ER 09:52 → ED HOLD 13:59 → ORTHO 4S 15:48
PROVIDERS: ADMIT Internal Medicine; ATTEND Internal Medicine
DX: E86.0 Dehydration (principal); N17.0 Acute kidney failure with tubular necrosis; I69.359 Hemiplegia and hemiparesis following cerebral infarction affecting unspecified side; J96.11 Chronic respiratory failure with hypoxia; I13.0 Hypertensive heart and chronic kidney disease with heart failure and stage 1 through stage 4 chronic kidney disease, or unspecified chronic kidney disease; N18.4 Chronic kidney disease, stage 4 (severe); I50.9 Heart failure, unspecified; J44.9 Chronic obstructive pulmonary disease, unspecified; R04.0 Epistaxis; E78.5 Hyperlipidemia, unspecified; F17.210 Nicotine dependence, cigarettes, uncomplicated; F32.A Depression, unspecified; F41.9 Anxiety disorder, unspecified; D64.9 Anemia, unspecified; M54.9 Dorsalgia, unspecified; R26.2 Difficulty in walking, not elsewhere classified; F51.04 Psychophysiologic insomnia; G89.29 Other chronic pain; I25.10 Atherosclerotic heart disease of native coronary artery without angina pectoris; I48.0 Paroxysmal atrial fibrillation; Z79.01 Long term (current) use of anticoagulants; Z80.52 Family history of malignant neoplasm of bladder; Z85.118 Personal history of other malignant neoplasm of bronchus and lung; Z85.3 Personal history of malignant neoplasm of breast; Z79.899 Other long term (current) drug therapy; Z88.8 Allergy status to other drugs, medicaments and biological substances; Z80.51 Family history of malignant neoplasm of kidney; Z92.21 Personal history of antineoplastic chemotherapy; Z92.3 Personal history of irradiation
CPT/HCPCS: 36415; 71045; 80048; 80053; 81001; 82948; 83605; 83735; 83880; 84145; 84443; 84484; 85008; 85025; 87040; 87081; 93005; 94640; 94760; 97116; 97161; 97530; 99285; G0378; J0360; J2270; J2405; J7030; Q0163

== ENCOUNTER 2021-08-05 02:50 | Emergency (ER) | payer MEDICARE, OTHER ==
[~2021-08-05] VITALS: Ht 154.9 cm; Wt 68.2 kg
[~2021-08-05 02:50] MED LIST changes: -CLON0.1T2 PO; -FURO40TA4 PO; +ISOS30TA84 PO; -ONDA-103 PO; -hyDRALAzine tablet PO
[2021-08-05] MEDS ORDERED: acetaminophen 325mg tablet PO ONE (02:55)
[2021-08-05 03:54] LABS: BASOPHILS % (AUTO) 0.3 % (0-1); EOSINOPHILS # (AUTO) 0.2 X10'3 (0-0.9); HEMATOCRIT 26.9 % (35.0-45.0); HEMOGLOBIN 8.8 g/dl (12.0-16.0); LYMPHOCYTES # (AUTO) 0.3 X10'3 (1.1-4.8); LYMPHOCYTES % (AUTO) 5.3 % (21-51); MEAN CORPUSCULAR HEMOGLOBIN 28.6 PG (27.0-31.0); MEAN CORPUSCULAR HGB CONC 32.5 g/dL (33.0-36.5); MEAN CORPUSCULAR VOLUME 87.9 FL (78-98); MEAN PLATELET VOLUME 7.3 FL (7.4-10.4); MONOCYTES # (AUTO) 0.7 X10'3 (0-0.9); MONOCYTES % (AUTO) 12.5 % (2-12); NEUTROPHILS # (AUTO) 4.2 X10'3 (1.8-7.7); NEUTROPHILS % (AUTO) 77.9 % (42-75); PLATELET COUNT 183 X10'3 (140-440); RED BLOOD COUNT 3.06 X10'6 (4.20-5.60); RED CELL DISTRIBUTION WIDTH 17.9 % (11.5-14.5); WHITE BLOOD COUNT 5.4 X10'3 (4.5-11.0)
[2021-08-05 04:15] LABS: ALANINE AMINOTRANSFERASE 10 U/L (12-78); ALBUMIN/GLOBULIN RATIO 0.7 (1.1-1.5); ALKALINE PHOSPHATASE 98 IU/L (46-116); ANION GAP 8 (8-16); ASPARTATE AMINO TRANSFERASE 14 U/L (10-37); BILIRUBIN,TOTAL 0.6 MG/DL (0.1-1.0); BLOOD UREA NITROGEN 32 MG/DL (7-18); BUN/CREATININE RATIO 12.4 (6.6-38.0); CALCIUM 9.2 MG/DL (8.5-10.1); CHLORIDE 104 MMOL/L (99-107); CREATININE 2.58 MG/DL (0.40-0.90); GLUCOSE 123 MG/DL (70-104); POTASSIUM 4.4 MMOL/L (3.5-5.1); SODIUM 141 MMOL/L (135-145); TOTAL PROTEIN 7.3 G/DL (6.4-8.2); eGFR 18 ML/MIN
[2021-08-05 05:29] LABS: CLARITY,URINE CLEAR (Clear); COLOR,URINE YELLOW (Yellow); GLUCOSE, URINE NEGATIVE (Neg); KETONES,URINE NEGATIVE (Neg); LEUKOCYTE ESTERASE ,URINE NEGATIVE (Neg); NITRITES, URINE NEGATIVE (Neg); OCCULT BLOOD,URINE NEGATIVE (Neg); PROTEIN,URINE TRACE mg/dl (Neg); UROBILINOGEN,URINE 0.2 E.U/dL (0.2-1.0)
[2021-08-05 05:41] LABS: UA COLLECTION TYPE CLN CATCH MIDSTREAM
[2021-08-05 05:44] LABS: BACTERIA,URINE FEW /HPF (Neg); HYALINE CASTS 0-3 /LPF (NEGATIVE); MUCUS STRANDS NONE SEEN /LPF (Neg); RBC,URINE NONE SEEN /HPF (0-2); SQUAMOUS EPITHELIAL CELL,UR MODERATE /LPF (FEW); TRANSITIONAL EPI CELLS,URINE FEW /HPF; WBC,URINE 0-4 /HPF (0-4)
[2021-08-05 06:03] VITALS: BP 195/70
--- NOTE | 2021-08-05 07:04 | NUR ---
PT IN BED ASLEEP.
--- NOTE | 2021-08-05 10:09 | NUR ---
Family called for ride.
== END 2021-08-05 10:35 | disposition home or self-care (01) ==
LOC: ER 02:50
DX: R29.6 Repeated falls (principal); M25.471 Effusion, right ankle; I13.0 Hypertensive heart and chronic kidney disease with heart failure and stage 1 through stage 4 chronic kidney disease, or unspecified chronic kidney disease; N18.9 Chronic kidney disease, unspecified; J44.9 Chronic obstructive pulmonary disease, unspecified; F41.9 Anxiety disorder, unspecified; F32.A Depression, unspecified; Z86.73 Personal history of transient ischemic attack (TIA), and cerebral infarction without residual deficits; Z85.3 Personal history of malignant neoplasm of breast; Z85.118 Personal history of other malignant neoplasm of bronchus and lung; Z95.0 Presence of cardiac pacemaker; Z98.890 Other specified postprocedural states; Z88.1 Allergy status to other antibiotic agents; Z79.899 Other long term (current) drug therapy
CPT/HCPCS: 36415; 71045; 73610; 73630; 80053; 81001; 84145; 84484; 85025; 99284

== ENCOUNTER 2021-09-14 09:10 | Inpatient (IN) | payer MEDICARE, OTHER ==
[~2021-09-14] VITALS: Ht 162.6 cm; Wt 70.0 kg
--- NOTE | 2021-09-14 09:45 | NUR ---
margaux (daughter) [phone]. Daughter has covid un-able to visit hospital. call with any questions
[2021-09-14] MEDS ORDERED: methylPREDNISolone sod succ 125mg/2ml vial IV ONE (10:55)
[2021-09-14 11:18] LABS: BASOPHILS % (AUTO) 0.3 % (0-1); EOSINOPHILS % (AUTO) 0.5 % (0-6); HEMATOCRIT 25.5 % (35.0-45.0); HEMOGLOBIN 8.1 g/dl (12.0-16.0); LYMPHOCYTES # (AUTO) 0.3 X10'3 (1.1-4.8); LYMPHOCYTES % (AUTO) 4.2 % (21-51); MEAN CORPUSCULAR HEMOGLOBIN 28.2 PG (27.0-31.0); MEAN CORPUSCULAR HGB CONC 31.9 g/dL (33.0-36.5); MEAN CORPUSCULAR VOLUME 88.5 FL (78-98); MEAN PLATELET VOLUME 7.3 FL (7.4-10.4); MONOCYTES # (AUTO) 0.3 X10'3 (0-0.9); MONOCYTES % (AUTO) 5.3 % (2-12); NEUTROPHILS # (AUTO) 5.5 X10'3 (1.8-7.7); NEUTROPHILS % (AUTO) 89.7 % (42-75); PLATELET COUNT 132 X10'3 (140-440); RED BLOOD COUNT 2.88 X10'6 (4.20-5.60); RED CELL DISTRIBUTION WIDTH 18.2 % (11.5-14.5); WHITE BLOOD COUNT 6.2 X10'3 (4.5-11.0)
[2021-09-14] MEDS ORDERED: cefTRIAXone 1g/NS 100ml IVPB 100 ML IV ONE (11:20)
[2021-09-14 11:30] LABS: ALANINE AMINOTRANSFERASE 18 U/L (12-78); ALBUMIN 3.2 G/DL (3.4-5.0); ALBUMIN/GLOBULIN RATIO 0.8 (1.1-1.5); ALKALINE PHOSPHATASE 96 IU/L (46-116); ANION GAP 7 (8-16); ASPARTATE AMINO TRANSFERASE 19 U/L (10-37); BILIRUBIN,TOTAL 0.8 MG/DL (0.1-1.0); BLOOD UREA NITROGEN 45 MG/DL (7-18); BUN/CREATININE RATIO 14.2 (6.6-38.0); CALCIUM 8.6 MG/DL (8.5-10.1); CHLORIDE 108 MMOL/L (99-107); CREATININE 3.17 MG/DL (0.40-0.90); GLUCOSE 116 MG/DL (70-104); POTASSIUM 4.8 MMOL/L (3.5-5.1); SODIUM 143 MMOL/L (135-145); TOTAL CARBON DIOXIDE 27.9 MMOL/L (24-32); TOTAL PROTEIN 7.2 G/DL (6.4-8.2); eGFR 14 ML/MIN
[2021-09-14] MEDS ORDERED: magnesium 2GM in 50ml NS 50 ML IV PRN (13:35)
[2021-09-14] MEDS ORDERED: magnesium 4gm in 100ml NS 100 ML IV PRN (13:35)
[2021-09-14] MEDS ORDERED: magnesium hydroxide 30ml (MOM) UD suspension PO PRN (13:35)
[2021-09-14] MEDS ORDERED: magnesium Cl slow-release 64mg tablet PO PRN (13:35)
[2021-09-14] MEDS ORDERED: potassium CL 10mEq/100ml bag 100 ML IV PRN (13:35)
[2021-09-14] MEDS ORDERED: mag hydrox/Alum hydrox/simeth 30ml oral suspension PO PRN (13:35)
[2021-09-14] MEDS ORDERED: POTASSIUM BICARB 20meq eff tab 20 MEQ TABLET.EFF PO PRN ×2 (13:35)
[2021-09-14] MEDS ORDERED: acetaminophen 325mg tablet PO PRN (13:35)
[2021-09-14] MEDS ORDERED: ondansetron/PF 4mg/2ml inj IV PRN (13:35)
[2021-09-14 14:37] LABS: MAGNESIUM 2.4 MG/DL (1.5-2.4)
--- NOTE | 2021-09-14 15:07 | NUR ---
PATIENT BRIEF CHANGED AT THIS TIME PER REQUEST, HYGIENE PROVIDED, PLACED PURE WICK FOR PATIENT COMFORT, PATIENT BECAME EXTREMELY SHORT OF BREATH WITH AUDIBLE WHEEZING AFTER MOVING POSITIONS IN BED, SPO2 905 ON 4L NC, PAGE SENT TO RT FOR BREATHING TREATMENT.
[2021-09-14] MEDS ORDERED: ipratropium/albuterol 3ml nebule NEB ONE (15:10)
[2021-09-14] MEDS ORDERED: ipratropium/albuterol 3ml nebule ONE (15:12)
[2021-09-14] MEDS ORDERED: MECL-159 PO (15:53)
[2021-09-14] MEDS ORDERED: ALBU17AE26 INH (15:53)
[2021-09-14] MEDS ORDERED: BUDE0.5A3 NEB (15:53)
[2021-09-14] MEDS ORDERED: ONDA-103 PO (15:53)
[2021-09-14] MEDS ORDERED: GABA300C PO (15:55)
[2021-09-14] MEDS ORDERED: ALBU2.5V10 NEB (15:55)
[2021-09-14] MEDS ORDERED: FURO40TA4 PO (15:56)
[2021-09-14] MEDS ORDERED: MULT-1085 PO (15:58)
[2021-09-14] MEDS ORDERED: CHOL10006 PO (15:59)
--- NOTE | 2021-09-14 18:15 | NUR ---
RECEIVED REPORT, PT ARIVED TO ROOM AT 1800, VS TAKEN BP ELEVATED, GAVE REPORT TO ROLANDO MARSHALL RN AND IS AWARE OF BP. SUGGESTED TO RETAKE THIS WAS TAKEN IMMEDIATELY AFTER TRANSFERING PT TO BED. ON 4L NC, CALLL LIGHT IN REACH
--- NOTE | 2021-09-14 18:30 | NUR ---
Patient in room ORTHO 4024. I have received report from KAVEH REGALADO and had the opportunity to ask questions and assume patient care.
[2021-09-14] MEDS ORDERED: albuterol 2.5 MG/3 ML nebule NEB PRN ×3 (18:40→20:00)
[2021-09-14] MEDS ORDERED: gabapentin 300mg capsule PO PRN (18:40)
[2021-09-14] MEDS ORDERED: non-formulary drug (Albuterol 2 PUFFS) INH PRN (18:40)
[2021-09-14 19:00] VITALS: BP 168/67
[2021-09-14] MEDS ORDERED: azithromycin 250mg tablet PO ONE (19:00)
[2021-09-14] MEDS: budesonide 0.5mg/2ml UD nebule IH SCH ×2 (19:23→21:00)
[2021-09-14] MEDS ORDERED: PROPAFENONE HCL PO SCH (20:00)
[2021-09-14] MEDS: K and/or MAG REPLACEMENT MC SCH (20:00)
[2021-09-14] MEDS: sertraline 50mg tablet PO SCH (20:04)
[2021-09-14] MEDS: docusate sod 100mg capsule PO SCH (20:05)
[2021-09-14] MEDS: apixaban 5mg tablet PO SCH (20:06)
[2021-09-14] MEDS: carVEDilol 12.5mg tablet PO SCH (20:06)
[2021-09-14] MEDS: propafenone 150mg tablet PO SCH (20:07)
[2021-09-14] MEDS: HYDROcodone/acetaminophen 10/325mg tab PO PRN (20:16)
[2021-09-14] MEDS: albuterol 2.5 MG/3 ML nebule NEB PRN (21:10)
[2021-09-14 22:00] VITALS: BP 146/68
[2021-09-15] MEDS: albuterol 2.5 MG/3 ML nebule NEB PRN ×6 (01:47→16:25)
[2021-09-15 02:00] VITALS: BP 163/71
[2021-09-15] MEDS: HYDROcodone/acetaminophen 10/325mg tab PO PRN (04:52)
[2021-09-15 06:00] VITALS: BP_SYST 151; BP_SYST 179; BP_DIAS 52; BP_DIAS 84
[2021-09-15 06:11] LABS: ALBUMIN 3.5 G/DL (3.4-5.0); ANION GAP 11 (8-16); BASOPHILS % (AUTO) 0.1 % (0-1); BLOOD UREA NITROGEN 50 MG/DL (7-18); CALCIUM 9.3 MG/DL (8.5-10.1); CHLORIDE 106 MMOL/L (99-107); CREATININE 3.13 MG/DL (0.40-0.90); EOSINOPHILS % (AUTO) 0 % (0-6); GLUCOSE 165 MG/DL (70-104); HEMATOCRIT 26.5 % (35.0-45.0); HEMOGLOBIN 8.6 g/dl (12.0-16.0); LYMPHOCYTES # (AUTO) 0.2 X10'3 (1.1-4.8); LYMPHOCYTES % (AUTO) 3.6 % (21-51); MAGNESIUM 2.3 MG/DL (1.5-2.4); MEAN CORPUSCULAR HEMOGLOBIN 28.4 PG (27.0-31.0); MEAN CORPUSCULAR HGB CONC 32.4 g/dL (33.0-36.5); MEAN CORPUSCULAR VOLUME 87.8 FL (78-98); MEAN PLATELET VOLUME 7.8 FL (7.4-10.4); MONOCYTES # (AUTO) 0.1 X10'3 (0-0.9); MONOCYTES % (AUTO) 1.1 % (2-12); NEUTROPHILS # (AUTO) 4.7 X10'3 (1.8-7.7); NEUTROPHILS % (AUTO) 95.2 % (42-75); PLATELET COUNT 162 X10'3 (140-440); POTASSIUM 4.6 MMOL/L (3.5-5.1); RED BLOOD COUNT 3.02 X10'6 (4.20-5.60); RED CELL DISTRIBUTION WIDTH 18.5 % (11.5-14.5); SODIUM 140 MMOL/L (135-145); TOTAL CARBON DIOXIDE 22.9 MMOL/L (24-32); WHITE BLOOD COUNT 4.9 X10'3 (4.5-11.0); eGFR 14 ML/MIN
--- NOTE | 2021-09-15 06:30 | NUR ---
Problems reprioritized. Patient report given, questions answered & plan of care reviewed with LORETA REGALADO.
[2021-09-15] MEDS: budesonide 0.5mg/2ml UD nebule IH SCH ×3 (07:52→19:17)
[2021-09-15] MEDS: K and/or MAG REPLACEMENT MC SCH ×2 (08:00→20:00)
[2021-09-15] MEDS: propafenone 150mg tablet PO SCH ×2 (08:15→19:49)
[2021-09-15] MEDS: apixaban 5mg tablet PO SCH ×2 (08:16→19:48)
[2021-09-15] MEDS: azithromycin 250mg tablet PO SCH (08:16)
[2021-09-15] MEDS: docusate sod 100mg capsule PO SCH ×2 (08:16→19:48)
[2021-09-15] MEDS: atorvastatin 20mg tablet PO SCH (08:16)
[2021-09-15] MEDS: cholecalciferol (vitamin D3) 1,000 unit (25mcg) tablet PO SCH (08:17)
[2021-09-15] MEDS: pantoprazole 40mg Tablet.DR PO SCH (08:17)
[2021-09-15] MEDS: furosemide 40mg tablet PO SCH (08:18)
[2021-09-15] MEDS: isosorbide mononitrate 30mg tab.SR.24H PO SCH (08:18)
[2021-09-15] MEDS: amLODIPine 5mg tablet PO SCH (08:18)
[2021-09-15] MEDS: losartan 50mg tablet PO SCH (08:18)
[2021-09-15] MEDS: carVEDilol 12.5mg tablet PO SCH ×2 (08:18→19:48)
[2021-09-15] MEDS: CefTRIAXone/D5W-Rocephin 1gm 50 ML IV SCH (09:25)
[2021-09-15 10:00] VITALS: BP 133/67
[2021-09-15 14:00] VITALS: BP 161/63
[2021-09-15 18:00] VITALS: BP 197/68
--- NOTE | 2021-09-15 18:00 | NUR ---
Patient in room ORTHO 4024. I have received report from Samuel REGALADO and had the opportunity to ask questions and assume patient care. Addendum: 09/15/21 at 1908 by Regina Medina RN Amended: Links added.
--- NOTE | 2021-09-15 18:45 | NUR ---
Pt. awake A & O at this time sitting up in bed. No c/o pain, no c/o SOB at this time. Call light within reach and bed in low position. Addendum: 09/15/21 at 2 by Regina Medina RN Amended: Links added.
[2021-09-15] MEDS: sertraline 50mg tablet PO SCH (19:48)
[2021-09-16] MEDS: albuterol 2.5 MG/3 ML nebule NEB PRN ×2 (03:23→07:43)
[2021-09-16 06:00] VITALS: BP 193/84
--- NOTE | 2021-09-16 06:10 | NUR ---
Problems reprioritized. Patient report given, questions answered & plan of care reviewed with Shahla REGALADO. Addendum: 09/16/21 at 0715 by Regina Medina RN Amended: Links added.
--- NOTE | 2021-09-16 06:40 | NUR ---
Patient in room ORTHO 4024. I have received report from Regina REGALADO and had the opportunity to ask questions and assume patient care.
[2021-09-16 07:12] LABS: BASOPHILS % (AUTO) 0.1 % (0-1); EOSINOPHILS % (AUTO) 0 % (0-6); HEMATOCRIT 23.6 % (35.0-45.0); HEMOGLOBIN 7.7 g/dl (12.0-16.0); LYMPHOCYTES # (AUTO) 0.3 X10'3 (1.1-4.8); LYMPHOCYTES % (AUTO) 3.3 % (21-51); MEAN CORPUSCULAR HEMOGLOBIN 28.8 PG (27.0-31.0); MEAN CORPUSCULAR HGB CONC 32.7 g/dL (33.0-36.5); MEAN PLATELET VOLUME 7.5 FL (7.4-10.4); MONOCYTES # (AUTO) 0.5 X10'3 (0-0.9); MONOCYTES % (AUTO) 6.1 % (2-12); NEUTROPHILS # (AUTO) 7.4 X10'3 (1.8-7.7); NEUTROPHILS % (AUTO) 90.5 % (42-75); PLATELET COUNT 160 X10'3 (140-440); RED BLOOD COUNT 2.68 X10'6 (4.20-5.60); RED CELL DISTRIBUTION WIDTH 19.2 % (11.5-14.5); WHITE BLOOD COUNT 8.2 X10'3 (4.5-11.0)
[2021-09-16] MEDS: isosorbide mononitrate 30mg tab.SR.24H PO SCH (07:20)
[2021-09-16] MEDS: docusate sod 100mg capsule PO SCH (07:20)
[2021-09-16] MEDS: losartan 50mg tablet PO SCH (07:20)
[2021-09-16] MEDS: azithromycin 250mg tablet PO SCH (07:20)
[2021-09-16] MEDS: pantoprazole 40mg Tablet.DR PO SCH (07:21)
[2021-09-16] MEDS: cholecalciferol (vitamin D3) 1,000 unit (25mcg) tablet PO SCH (07:21)
[2021-09-16] MEDS: atorvastatin 20mg tablet PO SCH (07:21)
[2021-09-16] MEDS: apixaban 5mg tablet PO SCH (07:22)
[2021-09-16] MEDS: CefTRIAXone/D5W-Rocephin 1gm 50 ML IV SCH (07:22)
[2021-09-16] MEDS: amLODIPine 5mg tablet PO SCH (07:22)
[2021-09-16] MEDS: carVEDilol 12.5mg tablet PO SCH (07:22)
[2021-09-16] MEDS: furosemide 40mg tablet PO SCH (07:22)
[2021-09-16 07:24] LABS: ALBUMIN 3.3 G/DL (3.4-5.0); ANION GAP 11 (8-16); BLOOD UREA NITROGEN 59 MG/DL (7-18); BUN/CREATININE RATIO 18.9 (6.6-38.0); CALCIUM 9.1 MG/DL (8.5-10.1); CHLORIDE 105 MMOL/L (99-107); CREATININE 3.12 MG/DL (0.40-0.90); GLUCOSE 105 MG/DL (70-104); MAGNESIUM 2.4 MG/DL (1.5-2.4); POTASSIUM 4.2 MMOL/L (3.5-5.1); SODIUM 141 MMOL/L (135-145); TOTAL CARBON DIOXIDE 25.1 MMOL/L (24-32); eGFR 14 ML/MIN
[2021-09-16] MEDS: K and/or MAG REPLACEMENT MC SCH (07:40)
[2021-09-16] MEDS: budesonide 0.5mg/2ml UD nebule IH SCH (07:43)
--- NOTE | 2021-09-16 07:43 | NUR ---
PAGER ID: [phone] MESSAGE: Shahla [phone] re Gertrude Montoya in [id number]. Pt requesting something for anxiety. Also pt's mrsa swab came back positive
[2021-09-16 07:55] LABS: PLATELET ESTIMATE NORMAL
[2021-09-16 07:56] LABS: ANISOCYTOSIS 2+; ELLIPTOCYTES 1+; HYPOCHROMASIA 1+; POLYCHROMASIA 1+; TEAR DROP CELLS 1+
[2021-09-16] MEDS ORDERED: potassium chloride 10mEq ER tablet PO SCH (08:00)
[2021-09-16] MEDS ORDERED: LORazepam 0.5 MG tablet PO PRN (09:35)
[2021-09-16] MEDS: propafenone 150mg tablet PO SCH (09:49)
[2021-09-16] MEDS ORDERED: AMOX-117 PO (09:54)
[2021-09-16 10:00] VITALS: BP 155/85
== END 2021-09-16 13:35 | disposition home or self-care (01) | DRG 193 ==
LOC: ER 09:10 → ED HOLD 13:37 → ORTHO 4S 17:55
PROVIDERS: ADMIT Family Medicine; ATTEND Family Medicine
DX: J18.9 Pneumonia, unspecified organism (principal); J96.21 Acute and chronic respiratory failure with hypoxia; I13.0 Hypertensive heart and chronic kidney disease with heart failure and stage 1 through stage 4 chronic kidney disease, or unspecified chronic kidney disease; J44.0 Chronic obstructive pulmonary disease with (acute) lower respiratory infection; I69.351 Hemiplegia and hemiparesis following cerebral infarction affecting right dominant side; I50.30 Unspecified diastolic (congestive) heart failure; N18.9 Chronic kidney disease, unspecified; Z20.822 Contact with and (suspected) exposure to COVID-19; I48.0 Paroxysmal atrial fibrillation; F03.90 Unspecified dementia, unspecified severity, without behavioral disturbance, psychotic disturbance, mood disturbance, and anxiety; F41.9 Anxiety disorder, unspecified; F32.A Depression, unspecified; Z85.3 Personal history of malignant neoplasm of breast; Z85.118 Personal history of other malignant neoplasm of bronchus and lung; Z88.8 Allergy status to other drugs, medicaments and biological substances; Z95.0 Presence of cardiac pacemaker
CPT/HCPCS: 36415; 71045; 80048; 80053; 83605; 83735; 83880; 84484; 85008; 85025; 85610; 87040; 87081; 87635; 93005; 94640; 94760; 97110; 97116; 97162; 97530; 99285; A6258; C9803; G0378; J0696; J2930

== ENCOUNTER 2021-11-01 08:56 | Outpatient (CLI) | payer OTHER ==
[~2021-11-01 08:56] MED LIST changes: +ALBU17AE26 INH; +ALBU2.5V10 NEB; +CHOL10006 PO; +FURO40TA4 PO; +GABA300C PO; +MECL-159 PO; +ONDA-103 PO
[2021-11-01] MEDS ORDERED: iohexol 350MG/ML 100ml bottle IV ONE (09:00)
== END 2021-11-01 23:59 | disposition home or self-care (01) ==
LOC: RAD 08:56
PROVIDERS: ATTEND Internal Medicine
DX: G31.1 Senile degeneration of brain, not elsewhere classified (principal); R90.82 White matter disease, unspecified; R41.0 Disorientation, unspecified
CPT/HCPCS: 70450; J3490; Q9967